=== PATIENT | male | born 1925 | race Caucasian/White ===

== ENCOUNTER → 2016-04-06 | Outpatient (CLI) | payer OTHER ==
[~2016-04-06] MED LIST: ACT300 PO; ASPI-435 PO; ASPI81TA21 PO; ATOR-26 PO; ATV5 PO; CALC0.2510 PO; CEPH500C2 PO; CHOL2000 PO; DMD20 PO; DRGTP12 TD; ESCI1TAB10 PO; FINA5TAB PO; FLUO5CRE TOP; GLIM2TAB2 PO; LACT10SO17 PO; LATA0.009 OPB; LATA0.5S OPB; LORA-741 PO; MECL1TAB42 PO; METO100T44 PO; METO200T31 PO; METO5TAB5 PO; MULT-188 PO; MULT-506 PO; NUTR-7 PO; ONDA4TAB4 PO; ONDA4TAB46 PO; POLY3350 PO; POLY335019 PO; POTA10TA PO; TIMO0.5S2 OPB; TIMO0.5S35 OPB; TORS20TA2 PO; TPRSR50 PO
[2016-04-06 11:07] LABS: HEMATOCRIT 30.2 % (42-52); MEAN CORPUSCULAR HEMOGLOBIN 32.1 pg (25-34); MEAN CORPUSCULAR HGB CONC 33.8 g/dl (32-36); MEAN PLATELET VOLUME 9.2 fL (7.4-10.4); PLATELET COUNT 136 K/uL (130-400); RED BLOOD COUNT 3.18 M/uL (4.7-6.1); WHITE BLOOD COUNT 5.93 K/uL (4.8-10.8)
[2016-04-06 11:26] LABS: URINE APPEARANCE CLEAR (CLEAR); URINE BILIRUBIN NEG (NEG); URINE COLOR YELLOW; URINE NITRITE NEG (NEG); URINE PH 7.5 (4.5-7.5); URINE SPECIFIC GRAVITY 1.012 (1.000-1.030); UROBILINOGEN NEG (NEG)
[2016-04-06 11:35] LABS: BLOOD UREA NITROGEN 58 mg/dl (7-18); BUN/CREATININE RATIO 26.4 (10-20); CALCIUM 9.6 mg/dl (8.5-10.1); CARBON DIOXIDE 32 mmol/L (21-32); CHLORIDE 97 mmol/L (98-107); GLUCOSE 93 mg/dl (70-99); POTASSIUM 3.5 mmol/L (3.5-5.1); SODIUM 137 mmol/L (136-145)
[2016-04-06 11:36] LABS: PHOSPHORUS 3.7 mg/dl (2.5-4.9)
[2016-04-06 11:43] LABS: MANUAL MICROSCOPIC REQUIRED? NO; REVIEW REQ? NO
== END | disposition home or self-care (01) ==
LOC: C.LAB1850 10:23
PROVIDERS: ATTEND Internal Medicine Nephrology
DX: N18.3 Chronic kidney disease, stage 3 (moderate) (principal)

== ENCOUNTER 2016-04-09 02:15 | Emergency (ER) | payer OTHER ==
[~2016-04-09] VITALS: Ht 167.6 cm; Wt 72.6 kg
[~2016-04-09 02:15] MED LIST changes: -ASPI-435 PO; -CEPH500C2 PO; -DRGTP12 TD; -LACT10SO17 PO; -LATA0.5S OPB; -LORA-741 PO; -METO100T44 PO; -METO200T31 PO; -METO5TAB5 PO; -MULT-506 PO; -ONDA4TAB46 PO; -POLY335019 PO; -POTA10TA PO; -TIMO0.5S35 OPB; -TORS20TA2 PO
[2016-04-09 02:22] VITALS: TEMP 36.3; Ht 167.6 cm; Wt 72.6 kg
[2016-04-09 03:11] LABS: BASO % 0.4 %; BASO ABS # 0.02 K/uL (0-0.2); COMPLETE YES; EOS % 3.3 %; HEMATOCRIT 29.2 % (42-52); IG% 0.2 %; LYMPH % 19.7 %; LYMPH ABS # 1.01 K/uL (1.2-3.4); MEAN CELL VOLUME 93.6 fL (80-100); MEAN CORPUSCULAR HEMOGLOBIN 32.1 pg (25-34); MEAN CORPUSCULAR HGB CONC 34.2 g/dl (32-36); MEAN PLATELET VOLUME 9.2 fL (7.4-10.4); MONO % 9.7 %; NEUT % 66.7 %; PLATELET COUNT 122 K/uL (130-400); RED BLOOD COUNT 3.12 M/uL (4.7-6.1); WHITE BLOOD COUNT 5.13 K/uL (4.8-10.8)
[2016-04-09 03:29] LABS: BUN/CREATININE RATIO 30.6 (10-20); CALCIUM 9.7 mg/dl (8.5-10.1); CREATININE 2.1 mg/dl (0.60-1.40); POTASSIUM 3.4 mmol/L (3.5-5.1)
--- NOTE | 2016-04-09 03:58 | EMERGENCY ROOM VISIT NOTE ---
History First contact with patient: 02:29 Chief Complaint: DENTAL PAIN Stated Complaint: MOUTH BLEEDING History of Present Illness The patient is a 89 year old male who presents to the Emergency Department by private vehicle for evaluation of bleeding from his upper RIGHT-sided gums. The patient reports that he noticed some bleeding from his gums on Tuesday. On Tuesday he was seen at his dentist office and had a procedure performed on his teeth. He is uncertain as to what procedure. He has been using pads in the mouth to help with his bleeding as well as teabags. He has had occasional breakthrough bleeding. He has had issues with bleeding in the past while on Coumadin. He is not on Coumadin to this point. He does take a baby aspirin daily. The patient rates his current discomfort as a 0/10. He denies any headaches, dizziness, lightheadedness, worsening shortness of breath, nausea, or vomiting. There has been no black or tarry stools. Review of Systems A complete 10-point Review of Systems was discussed with the patient, with pertinent positives and negatives listed in the History of Present Illness. All remaining Review of Systems questions can be considered negative unless otherwise specified. Past Medical/Surgical History Medical Problems: (1) Anemia (2) Atrial fibrillation (3) Bradycardia (4) Cardiac stent placement (5) Diabetes (6) Disorder of cardiac pacemaker system (7) Heart disease (8) Hernia repair (9) Implantation of cardiac pacemaker (10) Kidney disease (11) Meniere's disease (12) Syncope (13) UTI Family History Cancer Diabetes mellitus FH: heart disease Hypertension Social History Smoking Status: Never Smoker Smokeless Tobacco Use: No Alcohol Use: none Drug Use: none Marital Status: Housing Status: lives with significant other Occupation Status: retired Current/Historical Medications Scheduled Aspirin Enteric Coated (Ecotrin Or Generic), 81 MG PO QPM Atorvastatin (Lipitor), 80 MG PO DHS Calcitriol (Rocaltrol Cap), 0.25 MCG PO 3XWK Cholecalciferol (Vitamin D3), 1 CAP PO DAILY Escitalopram Oxalate (Lexapro), 10 MG PO DAILY Finasteride (Proscar), 5 MG PO DAILY Fluorouracil (Topical) (Efudex), 1 APPLN TOP BID Glimepiride (Glimepiride), 0.5 TAB PO DAILY Latanoprost 0.005% Oph (Xalatan 0.005% Oph), 1 DROP OPB HS Lorazepam (Ativan *), 0.5 MG PO BID Metoprolol Succinate (Metoprolol Succinate ER), 200 MG PO DAILY Multiple Vitamins W/ Minerals (Ocuvite), 1 TAB PO DAILY Nutritional Supplements (Boost), 1 CAN PO BID Polyethylene Glycol 3350 (Polyethylene Glycol 3350), 17 GM PO DAILY Timolol Gfs 0.5% Oph (Timoptic-Xe 0.5% Oph), 1 DROP OPB QAM Torsemide (Torsemide), 20-30 MG PO DAILY Ursodiol (Actigall *), 300 MG PO BID Scheduled PRN Meclizine Hcl (Meclizine Hcl), 1 TAB PO Q8 PRN for VERTIGO Ondansetron Tab (Zofran), 4 MG PO PRN PRN for Nausea Allergies Coded Allergies: Adhesives (Verified Allergy, Unknown, "RED RASH AND ITCHES", 02/05/16) Morphine (Verified Adverse Reaction, Mild, headaches, 02/05/16) Physical Exam Vital Signs Date Time Temp Pulse Resp B/P Pulse Ox O2 Delivery O2 Flow Rate FiO2 04/09/16 04:13 76 18 113/61 96 Room Air 04/09/16 02:22 36.3 84 20 134/81 98 Room Air Pain Rating (0-10): 0 Physical Exam VITAL SIGNS - Vital signs and nursing notes were reviewed. GENERAL - 89-year-old male appearing his stated age who is in no acute distress. Communicates well with provider and answers questions appropriately. HEAD - Normocephalic, Atraumatic. No Peterson's Sign or Raccoon's Eyes. No depressed skull fractures palpable. EYES - PERRL with EOMI bilaterally. EARS - No deformities of external structures noted on gross examination bilaterally. No pain elicited with palpation of the tragus bilaterally. External auditory canals without discharge or otorrhea. Tympanic membranes pearly argueta without retraction or bulging. No fluid or purulent material visualized behind the TM. Handle of malleus, umbo, cone of light, pars tensa/ flaccid all easily visualized. No erythema , edema, or tenderness to palpation noted over the mastoid process. NOSE - Midline and without cyanosis. No epistaxis or purulent drainage noted. Septum midline without deviation or septal hematoma noted. MOUTH/OROPHARYNX - Without perioral cyanosis. Buccal mucosa pink and moist and without leukoplakia. Tongue midline with equal elevation of palate bilaterally. No tonsillar hypertrophy, erythema, or exudates noted. Mild oozing of blood to the lateral surface of the gums of the third molar tooth. There is previous filling noted in the tooth. No significant bleeding. NECK - Neck with FROM. Supple to palpation. No lymphadenopathy noted. No nuchal rigidity. Medical Decision & Procedures Laboratory Results 04/09/16 02:52 Red Blood Count 3.12, Mean Corpuscular Volume 93.6, Mean Corpuscular Hemoglobin 32.1, Mean Corpuscular Hemoglobin Concent 34.2, Mean Platelet Volume 9.2, Neutrophils (%) (Auto) 66.7, Lymphocytes (%) (Auto) 19.7, Monocytes (%) (Auto) 9.7, Eosinophils (%) (Auto) 3.3, Basophils (%) (Auto) 0.4, Neutrophils # (Auto) 3.42, Lymphocytes # (Auto) 1.01, Monocytes # (Auto) 0.50, Eosinophils # (Auto) 0.17, Basophils # (Auto) 0.02 04/09/16 02:52 Test 04/09/16 02:52 White Blood Count 5.13 K/uL (4.8-10.8) Red Blood Count 3.12 M/uL (4.7-6.1) Hemoglobin 10.0 g/dL (14.0-18.0) Hematocrit 29.2 % (42-52) Mean Corpuscular Volume 93.6 fL (80-100) Mean Corpuscular Hemoglobin 32.1 pg (25-34) Mean Corpuscular Hemoglobin Concent 34.2 g/dl (32-36) Platelet Count 122 K/uL (130-400) Mean Platelet Volume 9.2 fL (7.4-10.4) Neutrophils (%) (Auto) 66.7 % Lymphocytes (%) (Auto) 19.7 % Monocytes (%) (Auto) 9.7 % Eosinophils (%) (Auto) 3.3 % Basophils (%) (Auto) 0.4 % Neutrophils # (Auto) 3.42 K/uL (1.4-6.5) Lymphocytes # (Auto) 1.01 K/uL (1.2-3.4) Monocytes # (Auto) 0.50 K/uL (0.11-0.59) Eosinophils # (Auto) 0.17 K/uL (0-0.5) Basophils # (Auto) 0.02 K/uL (0-0.2) RDW Standard Deviation 46.9 fL (36.4-46.3) RDW Coefficient of Variation 13.6 % (11.5-14.5) Immature Granulocyte % (Auto) 0.2 % Immature Granulocyte # (Auto) 0.01 K/uL (0.00-0.02) Prothrombin Time 11.0 SECONDS (9.0-12.0) Prothromb Time International Ratio 1.0 (0.9-1.1) Activated Partial Thromboplast Time 25.9 SECONDS (21.0-31.0) Partial Thromboplastin Ratio 1.0 Anion Gap 12.0 mmol/L (3-11) Est Creatinine Clear Calc Drug Dose 21.5 ml/min Estimated GFR () 31.4 Estimated GFR (Non- 27.1 BUN/Creatinine Ratio 30.6 (10-20) Calcium Level 9.7 mg/dl (8.5-10.1) Total Bilirubin 0.4 mg/dl (0.2-1) Aspartate Amino Transf (AST/SGOT) 10 U/L (15-37) Alanine Aminotransferase (ALT/SGPT) 19 U/L (12-78) Alkaline Phosphatase 56 U/L (45-117) Total Protein 7.2 gm/dl (6.4-8.2) Albumin 3.6 gm/dl (3.4-5.0) Globulin 3.6 gm/dl (2.5-4.0) Albumin/Globulin Ratio 1.0 (0.9-2) Procedure Verbal consent was obtained prior to performing the above-mentioned workup. Surgicel was used to circumferentially wrapped the affected tooth around the gums. Quick clot was utilized as well. Compression was applied to the area. Patient tolerated procedure well. No complications were met. ED Course Patient was seen and evaluated by myself. Labs were collected. The dental bleeding was addressed as described above. Patient had no return of bleeding while in the emergency department. Laboratory results demonstrate no acute leukocytosis, worrisome anemia, or bandemia. The patient's creatinine is elevated, however this appears to be at baseline. The patient was encouraged to follow up with his dentist tomorrow. He was educated on worrisome symptoms for return visit to the emergency department. Patient discharged home afebrile and in good condition. Medical Decision Given the patient's presentation and exam findings, I did elect to perform the above-mentioned workup. The patient presents today with bleeding from the gums. He had recent dental procedure. He is not on any anticoagulation medications. The bleeding was easily stopped using Surgicel and quick clot. The patient's labs are concerning at this point. The patient will follow-up with his dentist tomorrow. He will return for any changing or worsening symptoms. Patient discharged home in good condition. In the evaluation and treatment of this patient, the following differential diagnoses were considered: Periapical Abscess, Osteonecrosis of the Jaw, Dental Fracture, Dental Caries, Santos's Angina, Vincent's Angina, Facial Cellulitis. Impression Primary Impression: Bleeding gums Departure Information Dispostion Home / Self-Care Condition GOOD Referrals Carlos Nunez M.D. (PCP) Patient Instructions A Signature Page, My [facility] Additional Instructions You have been seen in the emergency department today for bleeding from the gums. Please follow-up with your dentist tomorrow as discussed. Return for any changing or worsening symptoms.
--- NOTE | 2016-04-09 04:02 | EMERGENCY ROOM VISIT NOTE ---
ED Visit Note First contact with patient: 02:29 I saw this patient in conjunction with Declan Hadley PA-C. I agree with his decision-making and treatment plan.
[2016-04-09 04:13] VITALS: BP 113/61; PULSE 76; O2SAT 96
[2016-07-24] MEDS ORDERED: METO1TAB70 PO (00:57)
[2016-09-21] MEDS ORDERED: DRGTP12 TD (09:07)
== END 2016-04-09 04:15 | disposition home or self-care (01) ==
LOC: C.EDB 02:17
DX: K06.8 Other specified disorders of gingiva and edentulous alveolar ridge (principal); I48.91 Unspecified atrial fibrillation; E11.9 Type 2 diabetes mellitus without complications; Z95.0 Presence of cardiac pacemaker; I51.9 Heart disease, unspecified; N28.9 Disorder of kidney and ureter, unspecified; H81.09 Meniere's disease, unspecified ear; Z80.9 Family history of malignant neoplasm, unspecified; Z83.3 Family history of diabetes mellitus; Z82.49 Family history of ischemic heart disease and other diseases of the circulatory system; Z79.82 Long term (current) use of aspirin; Z79.899 Other long term (current) drug therapy

== ENCOUNTER → 2016-04-23 | Outpatient (CLI) | payer OTHER ==
[~2016-04-23] MED LIST changes: +ASPI-435 PO; +CEPH500C2 PO; +DRGTP12 TD; +LACT10SO17 PO; +LATA0.5S OPB; +LORA-741 PO; +METO1TAB69 PO; +METO1TAB70 PO; +METO5TAB5 PO; +MULT-506 PO; +ONDA4TAB46 PO; +POLY335019 PO; +POTA10TA PO; +TIMO0.5S35 OPB; +TORS20TA2 PO
[2016-04-23 11:41] LABS: BLOOD UREA NITROGEN 49 mg/dl (7-18); BUN/CREATININE RATIO 24.5 (10-20); CALCIUM 9.5 mg/dl (8.5-10.1); CARBON DIOXIDE 30 mmol/L (21-32); CHLORIDE 102 mmol/L (98-107); GLUCOSE 84 mg/dl (70-99); PHOSPHORUS 2.8 mg/dl (2.5-4.9); POTASSIUM 3.6 mmol/L (3.5-5.1); SODIUM 140 mmol/L (136-145)
== END | disposition home or self-care (01) ==
LOC: C.LAB1850 09:54
PROVIDERS: ATTEND Internal Medicine Nephrology
DX: N18.4 Chronic kidney disease, stage 4 (severe) (principal)

== ENCOUNTER 2016-05-20 15:01 | Inpatient (IN) | payer OTHER ==
[~2016-05-20] VITALS: Ht 167.6 cm; Wt 69.7 kg
[~2016-05-20 15:01] MED LIST changes: -ASPI-435 PO; -CEPH500C2 PO; -DRGTP12 TD; -LACT10SO17 PO; -LATA0.5S OPB; -LORA-741 PO; -METO1TAB69 PO; -METO1TAB70 PO; -METO5TAB5 PO; -MULT-506 PO; -ONDA4TAB46 PO; -POLY335019 PO; -POTA10TA PO; -TIMO0.5S35 OPB; -TORS20TA2 PO
[2016-05-20 15:53] LABS: BASO % 0.3 %; BASO ABS # 0.02 K/uL (0-0.2); COMPLETE YES; EOS % 2.4 %; HEMATOCRIT 28.3 % (42-52); IG% 0.3 %; LYMPH % 12.3 %; LYMPH ABS # 0.77 K/uL (1.2-3.4); MEAN CELL VOLUME 94.3 fL (80-100); MEAN CORPUSCULAR HGB CONC 33.9 g/dl (32-36); MEAN PLATELET VOLUME 9.3 fL (7.4-10.4); NEUT % 72.7 %; PLATELET COUNT 130 K/uL (130-400); WHITE BLOOD COUNT 6.24 K/uL (4.8-10.8)
[2016-05-20] MEDS ORDERED: METO1TAB69 PO (15:59)
[2016-05-20 16:02] LABS: PARTIAL THROMBOPLASTIN RATIO 0.8; PROTHROMBIN TIME (PATIENT) 11.2 SECONDS (9.0-12.0)
[2016-05-20 16:14] LABS: BLOOD UREA NITROGEN 56 mg/dl (7-18); BUN/CREATININE RATIO 25.4 (10-20); CALCIUM 9.7 mg/dl (8.5-10.1); CARBON DIOXIDE 30 mmol/L (21-32); CHLORIDE 100 mmol/L (98-107); GLUCOSE 141 mg/dl (70-99); MAGNESIUM 2.5 mg/dl (1.8-2.4); POTASSIUM 3.6 mmol/L (3.5-5.1); SODIUM 139 mmol/L (136-145)
[2016-05-20 16:24] LABS: PHOSPHORUS 3.3 mg/dl (2.5-4.9)
--- NOTE | 2016-05-20 16:39 | DIAGNOSTIC IMAGING REPORT ---
CHEST 2 VIEWS ROUTINE CLINICAL HISTORY: Exertional dyspnea, Stage IV kidney disease, 11 lb weight gain COMPARISON STUDY: Chest radiograph February 05, 2016. FINDINGS: There are few healed rib fractures. A nodular density projecting over the right lower lung likely reflects a nipple shadow. No pneumothorax or pleural effusion is present. A right subclavian pacemaker is in place. A disconnected lead is unchanged. There is no radiographic evidence of pulmonary edema. There is pulmonary vascular congestion. IMPRESSION: 1. Stable cardiomegaly. 2. Pulmonary vascular congestion. No overt pulmonary edema. Electronically signed by: Agustin Khan M.D. 05/20/2016 4:37 PM Dictated Date/Time: 05/20/2016 4:32 PM
--- NOTE | 2016-05-20 17:04 | EMERGENCY ROOM VISIT NOTE ---
History Report prepared by Francine: Claudio Palomo Under the Supervision of: Dr. Sariah Bonilla M.D. First contact with patient: 15:10 Chief Complaint: SHORTNESS OF BREATH Stated Complaint: WEIGHT GAIN KIDNEY DISEASE 4(s) History of Present Illness The patient is an 89 year old male who presents to the Emergency Room with complaints of persistent weight gain of around 11 pounds over the past two weeks. Associated symptoms include shortness of breath, chest "burning" with exertion, increased lethargy, and abdominal pain. The patient suffers from stage 4 kidney disease. He was told to call his physician's office if he experiences abnormal weight gain. When he called today, it was recommended that he come into the ED. The patient takes 30 mg Torsemide 2 x per day. Source of History: patient Onset: past two weeks Position: other (Global ) Timing: other (Persistent ) Modifying Factors (Relieving): other (None ) Associated Symptoms: + SOB, + abdominal pain, + chest pain (Burning with exertion ) Review of Systems See HPI for pertinent positives & negatives. A total of 10 systems reviewed and were otherwise negative. Past Medical & Surgical Medical Problems: (1) Anemia (2) Atrial fibrillation (3) Bradycardia (4) Cardiac stent placement (5) Diabetes (6) Disorder of cardiac pacemaker system (7) Heart disease (8) Hernia repair (9) Implantation of cardiac pacemaker (10) Kidney disease (11) Meniere's disease (12) Syncope (13) UTI Family History Cancer Diabetes mellitus FH: heart disease Hypertension Social History Smoking Status: Former Smoker Alcohol Use: none Drug Use: none Marital Status: Housing Status: lives with significant other Occupation Status: retired Current/Historical Medications Scheduled Aspirin Enteric Coated (Ecotrin Or Generic), 81 MG PO QPM Atorvastatin (Lipitor), 80 MG PO DHS Calcitriol (Rocaltrol Cap), 0.25 MCG PO 3XWK Cholecalciferol (Vitamin D3), 1 CAP PO DAILY Escitalopram Oxalate (Lexapro), 10 MG PO DAILY Finasteride (Proscar), 5 MG PO Q2D Fluorouracil (Topical) (Efudex), 1 APPLN TOP BID Glimepiride (Glimepiride), 0.5 TAB PO DAILY Latanoprost 0.005% Oph (Xalatan 0.005% Oph), 1 DROP OPB HS Lorazepam (Ativan *), 0.5 MG PO BID Metoprolol Succ (Toprol Xl) (Toprol-Xl ), 100 MG PO QPM Multiple Vitamins W/ Minerals (Ocuvite), 1 TAB PO DAILY Nutritional Supplements (Boost), 1 CAN PO BID Timolol Gfs 0.5% Oph (Timoptic-Xe 0.5% Oph), 1 DROP OPB QAM Torsemide (Torsemide), 20-30 MG PO DAILY Ursodiol (Actigall *), 300 MG PO BID Scheduled PRN Meclizine Hcl (Meclizine Hcl), 1 TAB PO Q8 PRN for VERTIGO Ondansetron Tab (Zofran), 4 MG PO PRN PRN for Nausea Allergies Coded Allergies: Adhesives (Verified Allergy, Unknown, "RED RASH AND ITCHES", 05/20/16) Morphine (Verified Adverse Reaction, Mild, headaches, 05/20/16) Physical Exam Vital Signs Date Time Temp Pulse Resp B/P Pulse Ox O2 Delivery O2 Flow Rate FiO2 05/20/16 15:34 70 05/20/16 15:21 99 Room Air 05/20/16 15:07 36.5 92 20 122/72 97 Room Air Physical Exam CONSTITUTIONAL: Mild distress, appears unwell. HEENT: No icterus, moist mucous membranes NECK: No meningismus, trachea is midline. CARDIOVASCULAR: Murmurs noted. Regular rate, normal perfusion RESPIRATORY: Unlabored breathing. Clear to auscultation. GASTROINTESTINAL: Non-tender GENITOURINARY: No flank tenderness MUSCULOSKELETAL: Full range of motion NEUROLOGIC: No acute gross focal deficits. PSYCHIATRIC: Normal affect SKIN: Multiple bruises noted. Medical Decision & Procedures ER Provider Diagnostic Interpretation: X-ray results as stated below per interpretation by me and the radiologist. CHEST 2 VIEWS ROUTINE CLINICAL HISTORY: Exertional dyspnea, Stage IV kidney disease, 11 lb weight gain COMPARISON STUDY: Chest radiograph February 05, 2016. FINDINGS: There are few healed rib fractures. A nodular density projecting over the right lower lung likely reflects a nipple shadow. No pneumothorax or pleural effusion is present. A right subclavian pacemaker is in place. A disconnected lead is unchanged. There is no radiographic evidence of pulmonary edema. There is pulmonary vascular congestion. IMPRESSION: 1. Stable cardiomegaly. 2. Pulmonary vascular congestion. No overt pulmonary edema. Electronically signed by: Agustin Khan M.D. 05/20/2016 4:37 PM Dictated Date/Time: 05/20/2016 4:32 PM Laboratory Results 05/20/16 15:35 Red Blood Count 3.00, Mean Corpuscular Volume 94.3, Mean Corpuscular Hemoglobin 32.0, Mean Corpuscular Hemoglobin Concent 33.9, Mean Platelet Volume 9.3, Neutrophils (%) (Auto) 72.7, Lymphocytes (%) (Auto) 12.3, Monocytes (%) (Auto) 12.0, Eosinophils (%) (Auto) 2.4, Basophils (%) (Auto) 0.3, Neutrophils # (Auto ) 4.53, Lymphocytes # (Auto) 0.77, Monocytes # (Auto) 0.75, Eosinophils # (Auto ) 0.15, Basophils # (Auto) 0.02 05/20/16 15:35 Test 05/20/16 15:35 White Blood Count 6.24 K/uL (4.8-10.8) Red Blood Count 3.00 M/uL (4.7-6.1) Hemoglobin 9.6 g/dL (14.0-18.0) Hematocrit 28.3 % (42-52) Mean Corpuscular Volume 94.3 fL (80-100) Mean Corpuscular Hemoglobin 32.0 pg (25-34) Mean Corpuscular Hemoglobin Concent 33.9 g/dl (32-36) Platelet Count 130 K/uL (130-400) Mean Platelet Volume 9.3 fL (7.4-10.4) Neutrophils (%) (Auto) 72.7 % Lymphocytes (%) (Auto) 12.3 % Monocytes (%) (Auto) 12.0 % Eosinophils (%) (Auto) 2.4 % Basophils (%) (Auto) 0.3 % Neutrophils # (Auto) 4.53 K/uL (1.4-6.5) Lymphocytes # (Auto) 0.77 K/uL (1.2-3.4) Monocytes # (Auto) 0.75 K/uL (0.11-0.59) Eosinophils # (Auto) 0.15 K/uL (0-0.5) Basophils # (Auto) 0.02 K/uL (0-0.2) RDW Standard Deviation 45.8 fL (36.4-46.3) RDW Coefficient of Variation 13.3 % (11.5-14.5) Immature Granulocyte % (Auto) 0.3 % Immature Granulocyte # (Auto) 0.02 K/uL (0.00-0.02) Prothrombin Time 11.2 SECONDS (9.0-12.0) Prothromb Time International Ratio 1.0 (0.9-1.1) Activated Partial Thromboplast Time 21.5 SECONDS (21.0-31.0) Partial Thromboplastin Ratio 0.8 Anion Gap 9.0 mmol/L (3-11) Est Creatinine Clear Calc Drug Dose 22.2 ml/min Estimated GFR () 29.7 Estimated GFR (Non- 25.6 BUN/Creatinine Ratio 25.4 (10-20) Calcium Level 9.7 mg/dl (8.5-10.1) Phosphorus Level 3.3 mg/dl (2.5-4.9) Magnesium Level 2.5 mg/dl (1.8-2.4) Troponin I < 0.015 ng/ml (0-0.045) Thyroid Stimulating Hormone (TSH) 1.750 uIu/ml (0.300-4.500) Labs reviewed by ED physician. ECG Indication: SOB/dyspnea Rate (beats per minute): 80 Findings: paced rhythm ED Course 1517: Past medical records reviewed. The patient was evaluated in room B9. A complete history and physical examination was performed. 1610: Discussed the patient's case with Dr. Millan ([facility] The patient will be evaluated for further management. Medical Decision Differential diagnosis include but are not limited to: kidney failure, CHF. 89-year-old presents to the emergency department for evaluation of 11 pound weight loss over 1 week. History of stage IV kidney disease followed by Dr. Castro. PCP Enrique. Long-standing history of valvular dysfunction without recent cardiology consultations. Review of systems positive for exertional chest pain. He was clearly instructed that should he have a more than 10 pound weight gain he should call the rib builder office which he did today. He was subsequently advised to come to the emergency room for evaluation and admission. He has no active chest pain or dyspnea on my exam at rest. Case discussed with Dr. Millan for admission. Consults Time Called: 1610 Consulting Physician: Dr. Millan ([facility]) Returned Call: 1610 Discussed the patient's case. The patient will be evaluated for further management. Impression Primary Impression: Exertional chest pain Additional Impression: Pulmonary edema Scribe Attestation The scribe's documentation has been prepared under my direction and personally reviewed by me in its entirety. I confirm that the note above accurately reflects all work, treatment, procedures, and medical decision making performed by me. Departure Information Dispostion Being Evaluated By Hospitalist Referrals Carlos Nunez M.D. (PCP) Patient Instructions My [facility] Problem Qualifiers
--- NOTE | 2016-05-20 17:30 | Medical Student: [facility] ---
Med Student History & Physical Date & Time of Service: May 20, 2016 at 16:59 Chief Complaint: WEIGHT GAIN KIDNEY DISEASE 4(s) Primary Care Physician: Carlos Nunez M.D. History of Present Illness Source: patient 89y/o female with a history of stage IV kidney disease, CHF, and pacemaker placement (most recent four years ago) presents with a weight gain of 11pounds over the past two weeks. The patient states that he has been feeling more tired recently and has been having trouble getting moving in the morning. He has been having shortness of breath with exertion and movement and gets worsening shortness of breath when he lies down to sleep at night. He also gets a burning chest pain upon exertion and lying down. Because of this SOB and pain with lying down, the patient has been sleeping in his recliner chair, and has been getting very little sleep. The patient also states that his abdomen has been distended and his legs have had had increased swelling as well. He has had decreased urination. The patient takes Torsemide 20mg daily and has also been prescribed Metolazone. However, he states that he has only used the Metolazone a few times because it does not work. The patient follows with Dr. Lai, Dr. Min, and his PCP is Dr. Amado. Past Medical/Surgical History Medical Problems: (1) Stage 4 kidney disease 2. Atrial fibrillation 3. CHF 4. DM 5. bradycardia 6. Anemia 7. High cholesterol 8. Squamos Cell Skin Cancer 9. UTI 10. Gallbladder Pain 11. Meniere's Disease 12. Syncope 13. BPH 14. Glaucoma Surgery Disease 1. Stent placement 2. Pacemaker placement 3. hernia repair Family History Cancer, Diabetes Mellitus, Heart Disease, HTN Social History Smoking Status: Former Smoker Alcohol Use: none Drug Use: none Marital Status: Housing status: lives with family Occupational Status: retired Immunizations History of Influenza Vaccine: Yes Influenza Vaccine Date: Jan 25, 2011 History of Tetanus Vaccine?: Unknown Tetanus Immunization Date: Jan 16, 2010 History of Pneumococcal: Yes Pneumococcal Date: Apr 04, 2003 History of Hepatitis B Vaccine: Unknown Allergies Coded Allergies: Adhesives (Verified Allergy, Unknown, "RED RASH AND ITCHES", 05/20/16) Morphine (Verified Adverse Reaction, Mild, headaches, 05/20/16) Medications Aspirin Enteric Coated (Ecotrin Or Generic), 81 MG PO QPM Atorvastatin (Lipitor), 80 MG PO DHS Calcitriol (Rocaltrol Cap), 0.25 MCG PO 3XWK Cholecalciferol (Vitamin D3), 1 CAP PO DAILY Escitalopram Oxalate (Lexapro), 10 MG PO DAILY Finasteride (Proscar), 5 MG PO Q2D Fluorouracil (Topical) (Efudex), 1 APPLN TOP BID Glimepiride (Glimepiride), 0.5 TAB PO DAILY Latanoprost 0.005% Oph (Xalatan 0.005% Oph), 1 DROP OPB HS Lorazepam (Ativan *), 0.5 MG PO BID Meclizine Hcl (Meclizine Hcl), 1 TAB PO Q8 PRN for VERTIGO Metoprolol Succ (Toprol Xl) (Toprol-Xl ), 100 MG PO QPM Multiple Vitamins W/ Minerals (Ocuvite), 1 TAB PO DAILY Nutritional Supplements (Boost), 1 CAN PO BID Ondansetron Tab (Zofran), 4 MG PO PRN PRN for Nausea Timolol Gfs 0.5% Oph (Timoptic-Xe 0.5% Oph), 1 DROP OPB QAM Torsemide (Torsemide), 20-30 MG PO DAILY Ursodiol (Actigall *), 300 MG PO BID Review of Systems Constitutional: + weakness, No chills, No fever, No sweats Eyes: No discharge, No redness, No worsening of vision ENT: No nasal symptoms, No sore throat, No trouble swallowing (regurgitates pills) Respiratory: + dyspnea on exertion, + shortness of breath, No cough, No sputum , No wheezing Cardiovascular: + chest pain, + edema, + orthopnea, No palpitations Abdomen: + constipation, + pain, No GI bleeding, No diarrhea, No nausea, No vomiting Musculoskeletal: No calf pain, No muscle pain Neurologic: No memory loss, No numbness/tingling, No paralysis, No weakness Psychiatric: No anxiety, No depression symptoms, No substance abuse Integumentary: No itch, No new/changing skin lesions, No rash Physical Exam Vital Signs (24 Hours) Date Time Temp Pulse Resp B/P Pulse Ox O2 Delivery O2 Flow Rate FiO2 05/20/16 15:34 70 05/20/16 15:21 99 Room Air 05/20/16 15:07 36.5 92 20 122/72 97 Room Air General Appearance: no apparent distress, + pertinent finding (tired and frail appearing) Head: normocephalic, atraumatic Eyes: normal inspection, EOMI ENT: normal ENT inspection, hearing grossly normal, pharynx normal Respiratory/Chest: chest non-tender, no respiratory distress, + crackles ( right base) Cardiovascular: regular rate, rhythm, no gallop, + systolic murmur (3/6) Abdomen/GI: normal bowel sounds, non tender, no pulsatile mass, + distended Back: normal inspection Extremities/Musculoskelatal: + pedal edema (1+ pedal and lower leg edema on the right and 2+ pedal and lower leg edema on the left) Neurologic/Psych: alert, normal mood/affect, oriented x 3 Skin: warm/dry, no rash, + pertinent finding (bruising on the forearms bilateral) Diagnostics Laboratory Results Results Past 24 Hours Test 05/20/16 15:35 Range/Units White Blood Count 6.24 4.8-10.8 K/uL Red Blood Count 3.00 4.7-6.1 M/uL Hemoglobin 9.6 14.0-18.0 g/dL Hematocrit 28.3 42-52 % Mean Corpuscular Volume 94.3 80-100 fL Mean Corpuscular Hemoglobin 32.0 25-34 pg Mean Corpuscular Hemoglobin Concent 33.9 32-36 g/dl Platelet Count 130 130-400 K/uL Mean Platelet Volume 9.3 7.4-10.4 fL Neutrophils (%) (Auto) 72.7 % Lymphocytes (%) (Auto) 12.3 % Monocytes (%) (Auto) 12.0 % Eosinophils (%) (Auto) 2.4 % Basophils (%) (Auto) 0.3 % Neutrophils # (Auto) 4.53 1.4-6.5 K/uL Lymphocytes # (Auto) 0.77 1.2-3.4 K/uL Monocytes # (Auto) 0.75 0.11-0.59 K/uL Eosinophils # (Auto) 0.15 0-0.5 K/uL Basophils # (Auto) 0.02 0-0.2 K/uL RDW Standard Deviation 45.8 36.4-46.3 fL RDW Coefficient of Variation 13.3 11.5-14.5 % Immature Granulocyte % (Auto) 0.3 % Immature Granulocyte # (Auto) 0.02 0.00-0.02 K/uL Prothrombin Time 11.2 9.0-12.0 SECONDS Prothromb Time International Ratio 1.0 0.9-1.1 Activated Partial Thromboplast Time 21.5 21.0-31.0 SECONDS Partial Thromboplastin Ratio 0.8 Sodium Level 139 136-145 mmol/L Potassium Level 3.6 3.5-5.1 mmol/L Chloride Level 100 98-107 mmol/L Carbon Dioxide Level 30 21-32 mmol/L Anion Gap 9.0 3-11 mmol/L Blood Urea Nitrogen 56 7-18 mg/dl Creatinine 2.20 0.60-1.40 mg/dl Est Creatinine Clear Calc Drug Dose 22.2 ml/min Estimated GFR () 29.7 Estimated GFR (Non- 25.6 BUN/Creatinine Ratio 25.4 10-20 Random Glucose 141 70-99 mg/dl Calcium Level 9.7 8.5-10.1 mg/dl Phosphorus Level 3.3 2.5-4.9 mg/dl Magnesium Level 2.5 1.8-2.4 mg/dl Troponin I < 0.015 0-0.045 ng/ml Thyroid Stimulating Hormone (TSH) 1.750 0.300-4.500 uIu/ml Diagnostic Radiology CXR: IMPRESSION: 1. Stable cardiomegaly. 2. Pulmonary vascular congestion. No overt pulmonary edema. EKG Ventricular pacer rhythm, Ventricular rate has increased by 9BPM compared to previous ecg Impression Assessment and Plan 89y/o male with a history of CHF and CKD stage IV with two weeks of 11 pound weight gain, shortness of breath with exertion, orthopnea, and chest pain with exertion. Differential includes CHF exacerbation, GA, complications from CKD, electrolyte abnormality, pulmonary edema, PE, and hypothyroidism. FLuid buildup likely due to CHF exacerbation given the patient's symptoms of orthopnea and chest pain. CHF exacerbation/weight gain- Will administer Furosemide 40mg IV daily. Monitor I&O and weight. Cardiology will be consulted. Echo ordered. BNP has been ordered. Initial troponin negative, continue to follow serial cardiac enzymes. Repeat ecg. Morphine as needed for pain. NTG for chest pain. Heart Disease/Atrial Fibrillation- Administer Metoprolol Succinate 100 Mg PO QPM and ASA 81mg PO QPM CKD stage IV- Creatinine at 2.20, BUN 56. Continue to monitor kidney function and other labs. LFTs ordered. Administer Vitamin D3 1 Cap PO daily and Calcitriol 0.25mcg PO 3xweek. Constipation- Administer Miralax for constipation Diabetes Mellitus- Administer Glimepiride 2Mg Tab, 0.5 tab PO daily. Gallbladder sludge/pain- Administer Ursodiol 300mg PO BID and Zofran and Meclizine as needed for nausea. Squamos Cell Skin Cancer- Continue to administer Fluorouracil Topical BID. BPH- Administer Finasteride 5mg PO Q2D. Hyperlipidemia- Administer Atorvastatin Calcium 80mg PO DHS. Depression/Anxiety- Administer Escitalopram 10mg PO daily and Lorazepam 0.5Mg PO BID. Glaucoma- Administer Latanoprost Soln 1 drop OPB HS and Timolol 1 drop OPB QAM.
[2016-05-20 17:57] LABS: URINE APPEARANCE CLEAR (CLEAR); URINE BILIRUBIN NEG (NEG); URINE COLOR YELLOW; URINE NITRITE NEG (NEG); URINE PH 7.5 (4.5-7.5); URINE SPECIFIC GRAVITY 1.007 (1.000-1.030); UROBILINOGEN NEG (NEG)
[2016-05-20 18:07] LABS: MANUAL MICROSCOPIC REQUIRED? NO; REVIEW REQ? NO
[2016-05-20] MEDS ORDERED: ONDANSETRON INJ 2 MG/ML 2 ML VIAL IV PRN (18:45)
[2016-05-20] MEDS ORDERED: MECLIZINE HCL 25 MG TAB PO PRN (18:45)
[2016-05-20] MEDS ORDERED: NITROGLYCERIN 0.4 MG SL PER TAB CHARGE SL PRN (18:45)
[2016-05-20] MEDS ORDERED: ZOLPIDEM TARTRATE 5 MG TAB PO PRN (18:45)
[2016-05-20] MEDS ORDERED: GLUCOSE 40% GEL 15 GM TUBE PO PRN (18:45)
[2016-05-20] MEDS ORDERED: GLUCAGON FOR INJ 1 MG VIAL SQ PRN (18:45)
[2016-05-20] MEDS ORDERED: GLUCOSE 10 TABS/TUBE PO PRN (18:45)
[2016-05-20] MEDS ORDERED: DEXTROSE 50% 50 ML SYR IV PRN (18:45)
[2016-05-20] MEDS ORDERED: ACETAMINOPHEN 325 MG TAB PO PRN (18:45)
[2016-05-20] MEDS ORDERED: FUROSEMIDE 40 MG/4 ML VIAL IV SCH (19:15)
[2016-05-20 19:50] VITALS: BMI 27.3
[2016-05-20 20:17] LABS: CKMB/CK RATIO 4.6 (0-3.0)
[2016-05-20 21:30] VITALS: BP 121/65; PULSE 87; TEMP 36.7; O2SAT 97
[2016-05-20] MEDS: BOOST VANILLA PO SCH ×2 (22:12)
[2016-05-20] MEDS: LORAZEPAM 0.5 MG TAB PO SCH (22:12)
[2016-05-20] MEDS: URSODIOL 300 MG CAP PO SCH (22:13)
[2016-05-20] MEDS: ATORVASTATIN 40 MG TAB PO SCH (22:14)
[2016-05-20] MEDS: ASPIRIN 81 MG ECTAB PO SCH (22:14)
[2016-05-20] MEDS: METOPROLOL SUCC 50MG EXT REL TAB PO SCH (22:15)
[2016-05-20] MEDS: LATANOPROST 0.005% OP SOLN 2.5 ML BTL OPB SCH (22:16)
[2016-05-20] MEDS: INSULIN ASPART 100 UNITS/ML 3 ML PEN SC SCH (22:17)
[2016-05-21] VITALS (8 sets, daily range): BP systolic 112–135; BP diastolic 53–75; PULSE 69–78; TEMP 36.4–36.9; O2SAT 91–97; Ht 167.6 cm; Wt 69.7 kg
--- NOTE | 2016-05-21 03:11 | History and Physical ---
History & Physical Date & Time of Service: May 21, 2016 at 02:59 Chief Complaint: Chf Exacerbation Primary Care Physician: Carlos Nunez M.D. History of Present Illness Source: patient, spouse The patient is an 89-year-old male who presents emergency department with a weight gain of 11 pounds with the past 2 weeks. He's also had shortness of breath, chest brain with exertion, generalized fatigue and abdominal bloating. His physician's office referred him to the ED due to these symptoms. He has not had any change in oral intake, in particular, keeps the salt intake low in his diet. Past Medical/Surgical History Medical Problems: (1) Atrial fibrillation Status: Chronic (2) Bradycardia Status: Chronic (3) Cardiac stent placement Status: Resolved (4) Diabetes Status: Chronic (5) Heart disease Status: Chronic (6) Hernia repair Status: Resolved (7) Implantation of cardiac pacemaker Status: Resolved (8) Kidney disease Status: Chronic (9) Meniere's disease Status: Chronic (10) UTI Status: Chronic Family History Cancer Diabetes mellitus FH: heart disease Hypertension Social History Smoking Status: Former Smoker Alcohol Use: none Drug Use: none Marital Status: Housing status: lives with family Occupational Status: retired Immunizations History of Influenza Vaccine: Yes Influenza Vaccine Date: Jan 25, 2011 History of Tetanus Vaccine?: Unknown Tetanus Immunization Date: Jan 16, 2010 History of Pneumococcal: Yes Pneumococcal Date: Apr 04, 2003 History of Hepatitis B Vaccine: Unknown Multi-Drug Resistant Organisms History of MDRO: No Allergies Coded Allergies: Adhesives (Verified Allergy, Unknown, "RED RASH AND ITCHES", 05/20/16) Morphine (Verified Adverse Reaction, Mild, headaches, 05/20/16) Home Medications Scheduled Aspirin Enteric Coated (Ecotrin Or Generic), 81 MG PO QPM Atorvastatin (Lipitor), 80 MG PO DHS Calcitriol (Rocaltrol Cap), 0.25 MCG PO 3XWK Cholecalciferol (Vitamin D3), 1 CAP PO DAILY Escitalopram Oxalate (Lexapro), 10 MG PO DAILY Finasteride (Proscar), 5 MG PO Q2D Fluorouracil (Topical) (Efudex), 1 APPLN TOP BID Glimepiride (Glimepiride), 0.5 TAB PO DAILY Latanoprost 0.005% Oph (Xalatan 0.005% Oph), 1 DROP OPB HS Lorazepam (Ativan *), 0.5 MG PO BID Metoprolol Succ (Toprol Xl) (Toprol-Xl ), 100 MG PO QPM Multiple Vitamins W/ Minerals (Ocuvite), 1 TAB PO DAILY Nutritional Supplements (Boost), 1 CAN PO BID Timolol Gfs 0.5% Oph (Timoptic-Xe 0.5% Oph), 1 DROP OPB QAM Torsemide (Torsemide), 20-30 MG PO DAILY Ursodiol (Actigall *), 300 MG PO BID Scheduled PRN Meclizine Hcl (Meclizine Hcl), 1 TAB PO Q8 PRN for VERTIGO Ondansetron Tab (Zofran), 4 MG PO PRN PRN for Nausea Review of Systems The patient denies cough, vision change, hearing change, sore throat, fevers, chills, sweats, weight change, fatigue, nausea, vomiting, pelvic pain, blood in urine or stool, dysuria, urinary frequency or urgency, lightheadedness, dizziness, headache, memory loss, rash, abnormal bruising or bleeding, imbalance , focal weakness, numbness or tingling in arms or legs, arthralgias or myalgias , back or neck pain, night sweats, or allergy symptoms. The review of systems is otherwise negative other than for that already noted above, and at least 10 systems have been reviewed. Physical Exam Vital Signs Date Time Temp Pulse Resp B/P Pulse Ox O2 Delivery O2 Flow Rate FiO2 05/21/16 00:04 36.7 71 16 112/53 96 Room Air 05/21/16 00:00 Room Air 05/20/16 21:30 36.7 87 18 121/65 97 Room Air 05/20/16 20:27 67 18 120/63 94 Room Air 05/20/16 19:50 Room Air 05/20/16 19:14 66 18 130/66 93 Room Air 05/20/16 17:44 05/20/16 17:42 119/63 05/20/16 16:11 63 05/20/16 16:06 62 05/20/16 15:46 66 94 05/20/16 15:41 65 97 05/20/16 15:36 67 13 97 05/20/16 15:34 70 05/20/16 15:31 66 16 98 05/20/16 15:26 65 28 96 05/20/16 15:21 78 12 99 05/20/16 15:21 99 Room Air 05/20/16 15:07 36.5 92 20 122/72 97 Room Air The patient is awake, alert and oriented 3, normocephalic and atraumatic, lying in bed and in no acute distress. HEENT--PERRL, EOMI, mucous membranes and oropharynx dry. Neck--supple, no JVD or bruits, thyroid normal, trachea midline, no adenopathy. Heart--normal S1 and S2, no extra beats, no murmurs, rubs or gallops. Lungs--clear bilaterally with good air movement, no respiratory distress, no accessory muscle use. Abdomen--normal bowel sounds and soft, mildly tympanitic, nontender, no hernias or masses, no organomegaly. Extremities--no cyanosis, clubbing. There is bilaterally 1+ pitting Edema. There are good distal pulses b/l. Dermatologic--normal skin turgor, normal color, warm and dry, no abnormal lymph nodes, no rash. Neurologic--cranial nerves II through XII grossly intact, motor and sensory examination normal. Rheumatologic--normal range of motion, nontender, muscles and joints for age Psychiatric--normal affect. Diagnostics Laboratory Results Results Past 24 Hours Test 05/20/16 15:35 05/20/16 17:42 05/20/16 19:35 05/20/16 21:54 Range/Units White Blood Count 6.24 4.8-10.8 K/uL Red Blood Count 3.00 4.7-6.1 M/uL Hemoglobin 9.6 14.0-18.0 g/dL Hematocrit 28.3 42-52 % Mean Corpuscular Volume 94.3 80-100 fL Mean Corpuscular Hemoglobin 32.0 25-34 pg Mean Corpuscular Hemoglobin Concent 33.9 32-36 g/dl Platelet Count 130 130-400 K/uL Mean Platelet Volume 9.3 7.4-10.4 fL Neutrophils (%) (Auto) 72.7 % Lymphocytes (%) (Auto) 12.3 % Monocytes (%) (Auto) 12.0 % Eosinophils (%) (Auto) 2.4 % Basophils (%) (Auto) 0.3 % Neutrophils # (Auto) 4.53 1.4-6.5 K/uL Lymphocytes # (Auto) 0.77 1.2-3.4 K/uL Monocytes # (Auto) 0.75 0.11-0.59 K/uL Eosinophils # (Auto) 0.15 0-0.5 K/uL Basophils # (Auto) 0.02 0-0.2 K/uL RDW Standard Deviation 45.8 36.4-46.3 fL RDW Coefficient of Variation 13.3 11.5-14.5 % Immature Granulocyte % (Auto) 0.3 % Immature Granulocyte # (Auto) 0.02 0.00-0.02 K/uL Prothrombin Time 11.2 9.0-12.0 SECONDS Prothromb Time International Ratio 1.0 0.9-1.1 Activated Partial Thromboplast Time 21.5 21.0-31.0 SECONDS Partial Thromboplastin Ratio 0.8 Sodium Level 139 136-145 mmol/L Potassium Level 3.6 3.5-5.1 mmol/L Chloride Level 100 98-107 mmol/L Carbon Dioxide Level 30 21-32 mmol/L Anion Gap 9.0 3-11 mmol/L Blood Urea Nitrogen 56 7-18 mg/dl Creatinine 2.20 0.60-1.40 mg/dl Est Creatinine Clear Calc Drug Dose 22.2 ml/min Estimated GFR () 29.7 Estimated GFR (Non- 25.6 BUN/Creatinine Ratio 25.4 10-20 Random Glucose 141 70-99 mg/dl Calcium Level 9.7 8.5-10.1 mg/dl Phosphorus Level 3.3 2.5-4.9 mg/dl Magnesium Level 2.5 1.8-2.4 mg/dl Total Bilirubin 0.5 0.2-1 mg/dl Direct Bilirubin 0.2 0-0.2 mg/dl Aspartate Amino Transf (AST/SGOT) 10 15-37 U/L Alanine Aminotransferase (ALT/SGPT) 16 12-78 U/L Alkaline Phosphatase 51 45-117 U/L Troponin I < 0.015 0.019 0-0.045 ng/ml Total Protein 7.4 6.4-8.2 gm/dl Albumin 3.8 3.4-5.0 gm/dl Thyroid Stimulating Hormone (TSH) 1.750 0.300-4.500 uIu/ml Urine Color YELLOW Urine Appearance CLEAR CLEAR Urine pH 7.5 4.5-7.5 Urine Specific [place] 1.007 1.000-1.030 Urine Protein NEG NEG Urine Glucose (UA) NEG NEG Urine Ketones NEG NEG Urine Occult Blood NEG NEG Urine Nitrite NEG NEG Urine Bilirubin NEG NEG Urine Urobilinogen NEG NEG Urine Leukocyte Esterase NEG NEG Total Creatine Kinase 24 39-308 U/L Creatine Kinase MB 1.1 0.5-3.6 ng/ml Creatine Kinase MB Ratio 4.6 0-3.0 Bedside Glucose 177 70-99 mg/dl Test 05/21/16 02:39 Range/Units Creatine Kinase MB Ratio 0-3.0 Diagnostic Radiology Patient Name: KARINA WILKERSON Unit Number: [id number] Dictated: 05/20/161631 Transcribed: 05/20/161631 SCARLET Printed Date/Time: [~ rep prt dt]/[~ rep prt tm] [~ rep ct labl] - [~ rep ct ivnm] [facility] [place] [address] Dictated: 05/20/161631 Transcribed: 05/20/161631 JA Printed Date/Time: [~ rep prt dt]/[~ rep prt tm] [~ rep ct labl] - [~ rep ct ivnm] DIAGNOSTIC IMAGING [~ rep ct add3]] CHEST 2 VIEWS ROUTINE CLINICAL HISTORY: Exertional dyspnea, Stage IV kidney disease, 11 lb weight gain COMPARISON STUDY: Chest radiograph February 05, 2016. FINDINGS: There are few healed rib fractures. A nodular density projecting over the right lower lung likely reflects a nipple shadow. No pneumothorax or pleural effusion is present. A right subclavian pacemaker is in place. A disconnected lead is unchanged. There is no radiographic evidence of pulmonary edema. There is pulmonary vascular congestion. IMPRESSION: 1. Stable cardiomegaly. 2. Pulmonary vascular congestion. No overt pulmonary edema. Electronically signed by: Agustin Khan M.D. 05/20/2016 4:37 PM Dictated Date/Time: 05/20/2016 4:32 PM The status of this report is Signed. Draft = Not yet reviewed or approved by Radiologist. Signed = Reviewed and approved by Radiologist. <AttendingPhy></AttendingPhy> <FamilyPhy>Carlos Nunez M.D.</FamilyPhy> < PrimaryPhy>Carlos Nunez M.D.</PrimaryPhy> <UnitNumber>[id number]</UnitNumber> <VisitNumber>[id number]</VisitNumber> <PatientName>KARINA WILKERSON</PatientName> <DateOfBirth>1925</DateOfBirth> <Location>[facility]</Location> <ServiceDate></ServiceDate> <MNE>ESINDI</MNE> <OrderingPhy>Anselmo Bonilla MD</ OrderingPhy> <OrderingPhyMNE>f rep ord dr valdez</OrderingPhyMNE> <DictatingPhyMNE> f rep dict dr valdez</DictatingPhyMNE> <CCListMNE>f rep ct alfonsoe</CCListMNE> < AdmittingPhyMNE>f pt admit dr valdez</AdmittingPhyMNE> <AttendingPhyMNE>f pt attend dr valdez</AttendingPhyMNE> <ConsultingPhyMNE>f pt consult dr valdez</ConsultingPhyMNE> <FamilyPhyMNE>f pt fam dr valdez</FamilyPhyMNE> <OtherPhyMNE>f pt other dr valdez</OtherPhyMNE> < PrimaryPhyMNE>f pt prim care dr valdez</PrimaryPhyMNE> <ReferringPhyMNE>f pt referring dr valdez</ReferringPhyMNE> EKG EKG shows ventricular paced rhythm at 80 bpm, there are no acute ST-T changes. Impression Assessment and Plan CHF exacerbation/atrial fibrillation/coronary artery stent/cardiac pacemaker/ chronic kidney disease--the patient will be admitted to the telemetry unit, for serial cardiac enzymes, cardiac rhythm monitoring and a 2-D echocardiogram with Dopplers. We will hold his torsemide 30 mg by mouth twice a day, and instead place on Lasix 40 mg IV now and every morning. We'll follow serial basic metabolic panel and magnesium levels. We'll continue enteric-coated aspirin 81 mg by mouth daily, and metoprolol succinate 100 mg by mouth every evening. Of note, metolazone is on his med list, but he has only taken it 4 times, as he says it doesn't work and he doesn't like it. 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 Pace. Hypercholesterolemia--continue atorvastatin 80 mg by mouth at bedtime. Depression/anxiety--continue Lexapro 10 mg by mouth daily and lorazepam 0.5 mg by mouth twice a day. Diabetes mellitus--hold glimepiride, and place on Accu-Cheks before meals and at bedtime with NovoLog coverage. BPH--continue per finasteride 5 mg by mouth every 2 days. Glaucoma--continue Xalatan and Timoptic as directed. Liver function--continue ursodiol 300 mg by mouth twice a day. Continue Efudex one occasion topically twice a day. Level of Care Telemetry Advanced Directives Existing Advance Directive: No Existing Living Will: Yes Existing Power of Remedial [place]: Yes Resuscitation Status FULL RESUSCITATION VTE Prophylaxis VTE Risk Assessment Done? Y/N: Yes Risk Level: Moderate Given or contraindicated: SCD's
[2016-05-21 03:13] LABS: BASO % 0.4 %; BASO ABS # 0.02 K/uL (0-0.2); COMPLETE YES; HEMATOCRIT 28.9 % (42-52); IG% 0.2 %; LYMPH ABS # 0.89 K/uL (1.2-3.4); MEAN CELL VOLUME 96.3 fL (80-100); MEAN CORPUSCULAR HGB CONC 33.2 g/dl (32-36); MONO % 11.5 %; NEUT % 69.9 %; PLATELET COUNT 125 K/uL (130-400); WHITE BLOOD COUNT 5.55 K/uL (4.8-10.8)
[2016-05-21 03:27] LABS: INR 1.1 (0.9-1.1); PROTHROMBIN TIME (PATIENT) 11.7 SECONDS (9.0-12.0)
[2016-05-21 03:32] LABS: CALCIUM 9.7 mg/dl (8.5-10.1); CREATININE 2.2 mg/dl (0.60-1.40); MAGNESIUM 2.3 mg/dl (1.8-2.4); POTASSIUM 3.2 mmol/L (3.5-5.1)
[2016-05-21 03:37] LABS: CKMB/CK RATIO 4.2 (0-3.0)
[2016-05-21] MEDS ORDERED: POTASSIUM CHLR 10 MEQ / WTR 10 MEQ in PREMIXED WATER 100 ML IV STA (08:25)
[2016-05-21] MEDS ORDERED: CHOLECALCIFEROL 1000 INTER.UNIT TAB PO SCH (09:00)
[2016-05-21] MEDS: TIMOLOL GFS 0.5% OPH SOLN 74 DROPS/5 ML BTL OPB SCH (09:10)
[2016-05-21] MEDS: ESCITALOPRAM OXALATE 10 MG TAB PO SCH (09:11)
[2016-05-21] MEDS: CEROVITE ADV FORMULA TAB PO SCH (09:11)
[2016-05-21] MEDS: FINASTERIDE 5 MG TAB PO SCH (09:11)
--- NOTE | 2016-05-21 09:11 | Clinical Documentation Query ---
CLINICAL DOCUMENTATION QUERY Dr. SELF, In your clinical opinion is this patient being managed for: ( ) Acute on chronic diastolic CHF ( ) Acute on chronic systolic CHF ( ) Acute on chronic combined systolic and diastolic CHF (X) Other explanation of clinical findings: acute on chronic congestive heart failure with preserved ejection fractionDrParveen MeloNeri ( ) Unable to determine (Please Define) ( ) Need to Discuss ( ) Not Agree The medical record reflects the following clinical findings, treatment, and risk factors. Clinical Indicators: 89 yo male presenting with 11 lb wt gain over 2 weeks. H/P indicates CHF exacerbation. Treatment: ECHO pending, cardiology and nephrology consult, IV lasix, tele, metoprolol xl, Risk Factors: age, A fib, CKD, DM, CAD Please clarify and document your clinical opinion in the progress notes and discharge summary. Terms such as "probable", "suspected", "likely", "questionable", "possible", or "still to be ruled out" are acceptable. IF IN AGREEMENT, YOU MUST DOCUMENT ABOVE DIAGNOSTIC STATEMENT IN DAILY PROGRESS NOTES AND DISCHARGE SUMMARY. This document is not part of the patient's record. Thank You, Sherry Mart, RN [phone]
[2016-05-21] MEDS: URSODIOL 300 MG CAP PO SCH ×2 (09:12→20:06)
[2016-05-21] MEDS: INSULIN ASPART 100 UNITS/ML 3 ML PEN SC SCH ×4 (09:13→21:00)
--- NOTE | 2016-05-21 09:13 | Clinical Documentation Query ---
CLINICAL DOCUMENTATION QUERY Dr. GA, In your clinical opinion is this patient being managed for: ( ) Acute on chronic diastolic CHF (x ) Acute on chronic systolic CHF ( ) Acute on chronic combined systolic and diastolic CHF ( ) Other explanation of clinical findings (Please Explain) ( ) Unable to determine (Please Define) ( ) Need to Discuss ( ) Not Agree The medical record reflects the following clinical findings, treatment, and risk factors. Clinical Indicators: 89 yo male presenting with 11 lb wt gain over 2 weeks. H/P indicates CHF exacerbation. Treatment: ECHO results are pending, cardiology and nephrology consult, IV lasix, tele, metoprolol xl, Risk Factors: age, A fib, CKD, DM, CAD Please clarify and document your clinical opinion in the progress notes and discharge summary. Terms such as "probable", "suspected", "likely", "questionable", "possible", or "still to be ruled out" are acceptable. IF IN AGREEMENT, YOU MUST DOCUMENT ABOVE DIAGNOSTIC STATEMENT IN DAILY PROGRESS NOTES AND DISCHARGE SUMMARY. This document is not part of the patient's record. Thank You, Sherry Mart, EMETERIO [phone]
[2016-05-21] MEDS: LORAZEPAM 0.5 MG TAB PO SCH ×2 (09:20→20:06)
[2016-05-21] MEDS: BOOST VANILLA PO SCH ×2 (09:20)
--- NOTE | 2016-05-21 09:37 | Family Medicine Progress Note ---
Progress Note Date of Service May 21, 2016. Subjective Pt evaluation today including: conversation w/ patient, conversation w/ family (), physical exam, chart review, lab review, review of studies, conversation w/ dairy consultant (Dr Julien), review of inpatient medication list Voiding: no voiding problems Mr Alcaraz is feeling slightly better this morning. A bit easier to breath. He has been on a slowly progressive downhill slope regarding his heart failure, mitral regurgitation and aortic stenosis. More recently however he has been putting off going to see the doctor despite his weight increasing as he is getting fed up with hospitals. He does not wish to be resuscitated in the event of a cardiac arrest. He also notes he has had difficulty swallowing for the last 2 weeks. This is mainly with liquids especially with water where he appears to regurgitate. All Other Systems: Reviewed and Negative Medications Current Inpatient Medications Medications (Trade) Dose Ordered Sig/Angus Route Start Time Stop Time Status Last Admin Dose Admin Acetaminophen (Tylenol Tab) 650 mg Q4H PRN PO 05/20/16 18:45 06/19/16 18:44 Zolpidem Tartrate (Ambien Tab) 5 mg HSZ PRN PO 05/20/16 18:45 06/19/16 18:44 Nitroglycerin (Nitrostat Tab) 0.4 mg UD PRN SL 05/20/16 18:45 06/19/16 18:44 Aspirin (Ecotrin Tab) 81 mg QPM PO 05/20/16 21:00 06/19/16 20:59 05/20/16 22:14 81 MG Atorvastatin Calcium (Lipitor Tab) 80 mg HS PO 05/20/16 21:00 06/19/16 20:59 05/20/16 22:14 80 MG Escitalopram Oxalate (Lexapro Tab) 10 mg DAILY PO 05/21/16 09:00 06/20/16 08:59 05/21/16 09:11 10 MG Finasteride (Proscar Tab) 5 mg Q2D@0900 PO 05/21/16 09:00 06/20/16 08:59 05/21/16 09:11 5 MG Latanoprost (Xalatan Oph Soln) 1 drops HS OPB 05/20/16 22:00 06/19/16 21:59 05/20/16 22:16 1 DROPS Lorazepam (Ativan Tab) 0.5 mg BID PO 05/20/16 21:00 06/19/16 20:59 05/21/16 09:20 0.5 MG Meclizine HCl (Antivert Tab) 25 mg Q8 PRN PO 05/20/16 18:45 06/19/16 18:44 Metoprolol Succinate (Toprol Xl Tab) 100 mg QPM PO 05/20/16 21:00 06/19/16 20:59 05/20/16 22:15 100 MG Multivitamins/ Minerals (Multivitamin W/ Minerals Tab) 1 tab DAILY PO 05/21/16 09:00 06/20/16 08:59 05/21/16 09:11 1 TAB Enteral Nutritional Formula (Boost) 1 can BID PO 05/20/16 21:00 06/19/16 20:59 05/21/16 09:20 1 CAN Timolol Maleate (Timoptic-Xe 0.5% Oph Soln) 1 drops QAM OPB 05/21/16 09:00 06/20/16 08:59 05/21/16 09:10 1 DROPS Ursodiol (Actigall Cap) 300 mg BID PO 05/20/16 21:00 06/19/16 20:59 05/21/16 09:12 300 MG Miscellaneous Information (Order Awaiting Action) 1 ea QS N/A 05/21/16 00:00 06/20/16 00:00 Cholecalciferol (Vitamin D Tab) 2,000 inter.unit QAM PO 05/21/16 09:00 06/20/16 08:59 05/21/16 09:11 2,000 INTER.UNIT Ondansetron HCl (Zofran Inj) 4 mg Q6H PRN IV 05/20/16 18:45 06/19/16 18:44 Insulin Aspart (novoLOG ASPART) SLIDING SCALE If C... ACHS SC 05/20/16 21:30 06/19/16 21:29 05/20/16 22:17 1 UNITS Glucose (Glucose 40% Gel) UD PRN PO 05/20/16 18:45 06/19/16 18:44 Glucose (Glucose Chew Tab) 1 tabs UD PRN PO 05/20/16 18:45 06/19/16 18:44 Dextrose (Dextrose 50% 50ML Syringe) 50 ml UD PRN IV 05/20/16 18:45 06/19/16 18:44 Glucagon 1 mg 1 mg UD PRN SQ 05/20/16 18:45 06/19/16 18:44 Furosemide/Syringe (Lasix Inj/ Syringe) 4 ml @ 4 mls/min QAM IV 05/21/16 09:00 06/20/16 08:59 Objective Vital Signs Date Time Temp Pulse Resp B/P Pulse Ox O2 Delivery O2 Flow Rate FiO2 05/21/16 07:56 36.7 69 16 113/55 94 Room Air 05/21/16 05:09 36.4 77 16 125/70 91 Room Air 05/21/16 04:00 Room Air 05/21/16 00:04 36.7 71 16 112/53 96 Room Air 05/21/16 00:00 Room Air 05/20/16 21:30 36.7 87 18 121/65 97 Room Air 05/20/16 20:27 67 18 120/63 94 Room Air 05/20/16 19:50 Room Air 05/20/16 19:14 66 18 130/66 93 Room Air 05/20/16 17:44 05/20/16 17:42 119/63 05/20/16 16:11 63 05/20/16 16:06 62 05/20/16 15:46 66 94 05/20/16 15:41 65 97 05/20/16 15:36 67 13 97 05/20/16 15:34 70 05/20/16 15:31 66 16 98 05/20/16 15:26 65 28 96 05/20/16 15:21 78 12 99 05/20/16 15:21 99 Room Air 05/20/16 15:07 36.5 92 20 122/72 97 Room Air Physical Exam General Appearance: no apparent distress Eyes: normal inspection (pupils equal) ENT: + pertinent finding (dry mouth) Neck: + JVD (up to ear lobe (severe TR)) Respiratory/Chest: no respiratory distress, no accessory muscle use, + crackles (bibasal crackles) Cardiovascular: regular rate, rhythm, no murmur Abdomen: normal bowel sounds, non tender, soft Extremities: no calf tenderness, normal capillary refill, + pedal edema (3+ ankles 1+ to knees) Neurologic/Psychiatric: no motor/sensory deficits, alert Skin: + pertinent finding (multple bruises, no rashes) Laboratory Results 05/21/16 02:57 Red Blood Count 3.00, Mean Corpuscular Volume 96.3, Mean Corpuscular Hemoglobin 32.0, Mean Corpuscular Hemoglobin Concent 33.2, Mean Platelet Volume 9.0, Neutrophils (%) (Auto) 69.9, Lymphocytes (%) (Auto) 16.0, Monocytes (%) (Auto) 11.5, Eosinophils (%) (Auto) 2.0, Basophils (%) (Auto) 0.4, Neutrophils # (Auto ) 3.88, Lymphocytes # (Auto) 0.89, Monocytes # (Auto) 0.64, Eosinophils # (Auto ) 0.11, Basophils # (Auto) 0.02 05/21/16 02:57 Test 05/20/16 15:35 05/20/16 17:42 05/21/16 02:57 05/21/16 07:46 Phosphorus Level 3.3 mg/dl (2.5-4.9) Thyroid Stimulating Hormone (TSH) 1.750 uIu/ml (0.300-4.500) Urine Color YELLOW Urine Appearance CLEAR (CLEAR) Urine pH 7.5 (4.5-7.5) Urine Specific [place] 1.007 (1.000-1.030) Urine Protein NEG (NEG) Urine Glucose (UA) NEG (NEG) Urine Ketones NEG (NEG) Urine Occult Blood NEG (NEG) Urine Nitrite NEG (NEG) Urine Bilirubin NEG (NEG) Urine Urobilinogen NEG (NEG) Urine Leukocyte Esterase NEG (NEG) White Blood Count 5.55 K/uL (4.8-10.8) Red Blood Count 3.00 M/uL (4.7-6.1) Hemoglobin 9.6 g/dL (14.0-18.0) Hematocrit 28.9 % (42-52) Mean Corpuscular Volume 96.3 fL (80-100) Mean Corpuscular Hemoglobin 32.0 pg (25-34) Mean Corpuscular Hemoglobin Concent 33.2 g/dl (32-36) Platelet Count 125 K/uL (130-400) Mean Platelet Volume 9.0 fL (7.4-10.4) Neutrophils (%) (Auto) 69.9 % Lymphocytes (%) (Auto) 16.0 % Monocytes (%) (Auto) 11.5 % Eosinophils (%) (Auto) 2.0 % Basophils (%) (Auto) 0.4 % Neutrophils # (Auto) 3.88 K/uL (1.4-6.5) Lymphocytes # (Auto) 0.89 K/uL (1.2-3.4) Monocytes # (Auto) 0.64 K/uL (0.11-0.59) Eosinophils # (Auto) 0.11 K/uL (0-0.5) Basophils # (Auto) 0.02 K/uL (0-0.2) RDW Standard Deviation 46.8 fL (36.4-46.3) RDW Coefficient of Variation 13.3 % (11.5-14.5) Immature Granulocyte % (Auto) 0.2 % Immature Granulocyte # (Auto) 0.01 K/uL (0.00-0.02) Prothrombin Time 11.7 SECONDS (9.0-12.0) Prothromb Time International Ratio 1.1 (0.9-1.1) Activated Partial Thromboplast Time 25.9 SECONDS (21.0-31.0) Partial Thromboplastin Ratio 1.0 Anion Gap 9.0 mmol/L (3-11) Est Creatinine Clear Calc Drug Dose 22.2 ml/min Estimated GFR () 29.7 Estimated GFR (Non- 25.6 BUN/Creatinine Ratio 25.0 (10-20) Calcium Level 9.7 mg/dl (8.5-10.1) Magnesium Level 2.3 mg/dl (1.8-2.4) Total Bilirubin 0.6 mg/dl (0.2-1) Direct Bilirubin 0.2 mg/dl (0-0.2) Aspartate Amino Transf (AST/SGOT) 9 U/L (15-37) Alanine Aminotransferase (ALT/SGPT) 16 U/L (12-78) Alkaline Phosphatase 51 U/L (45-117) Total Creatine Kinase 24 U/L (39-308) Creatine Kinase MB 1.0 ng/ml (0.5-3.6) Creatine Kinase MB Ratio 4.2 (0-3.0) Troponin I 0.018 ng/ml (0-0.045) Total Protein 7.0 gm/dl (6.4-8.2) Albumin 3.6 gm/dl (3.4-5.0) Bedside Glucose 109 mg/dl (70-99) Assessment and Plan 89 yo male with aortic stenosis, mitral regurgitation and heart failure New onset dysphagia - risk of stroke with atrial fibrillation and not on anticoagulation - speech eval Acute on chronic congestive heart failure - Metoprolol 100 mg XL - not on ACEi due to CKD - repeat echo - consult cardiology - consult palliative care - mouth care Chronic atrial fibrillation with tachy/fabrizio + pacemaker - not for anticoagulation as per patient choice after epistaxis - rate controlled with metoprolol Coronary artery disease with stent - ASA, statin, BB, (not on ACEi due to CKD) CKD stage 4 - Consult nephrology - serial BMPs gentle diuresis Depression/anxiety -continue Lexapro 10 mg by mouth daily and lorazepam 0.5 mg by mouth twice a day. Diabetes mellitus - hold glimepiride - place on Accu-Cheks before meals and at bedtime with NovoLog coverage. BPH - continue per finasteride 5 mg by mouth every 2 days. Glaucoma - continue Xalatan and Timoptic as directed. Liver function - continue ursodiol 300 mg by mouth twice a day. Continue Efudex one occasion topically twice a day. VTE Prophylaxis - SCDs Code - DNR Disposition - continue on telemetry for another 24 hours while diuresing Resident Physician Supervision Note: I was present with PGY2 Dr. Dmitry Alcala during the history and exam. I discussed the case with the resident and agree with the findings and plan as documented in the note. Any exceptions or clarifications are listed here: none. Pt w/ dysphagia - solids/liquids - 2-4 weeks. Has associated regurgitation. SOB/dyspnea/orthopnea improved. VSS o2 sats nl gen - NAD mouth - posterior pharyngeal wall is asymmetric heart - RRR, s1, s2, 3/6 holosystolic murmur RUSB; 2/6 holosystolic murmur LLSB lungs - scant bibasilar rales neck - JVD to the jaw neuro - no facial droop, no dysarthria, strength 5/5 x 4 exts labs - Cr 2.2, K 3.2 A/P: 1. acute/chronic systolic CHF - improved. Cont diuresis. 2. severe 3. dysphagia - video swallow results reviewed; etiology uncertain. Plan - NPO, GI consultation. I don't see signs of a stroke on exam. 4. CKD stage 4 - creatinine @ baseline. 5. hypokalemia - replace IV. Documented By: Dmitry Bar MD Resident Tracking Resident Involvement: Resident Care Provided Care Provided: Adult Hospital Medicine
[2016-05-21] MEDS: FUROSEMIDE INJ 40 MG in SYRINGE 0 ML IV SCH (10:49)
--- NOTE | 2016-05-21 10:56 | Nephrology Consultation ---
Nephrology Consultation Date & Providers Date of Consultation: May 21, 2016. Primary Care Provider: Carlos Nunez M.D. Referring Provider: Reason for Consultation Evaluation of chronic kidney disease, anemia and exertional dyspnea History of Present Illness Mr. Ly is an 89 year old white male who is seen at the request of Dr. Millan for evaluation of chronic kidney disease, anemia and exertional dyspnea. Medical records in the EMR were reviewed today and are summarized as follows: Mr. Ly has stage IV CKD w/ baseline creatinine 2.1, iron deficiency anemia, HTN, BPH, AODM, atrial fibrillation and valvular heart disease. Echocardiogram 2013 revealed LVEF 45 - 50%, moderate , moderate to severe MR, pulmonary HTN and severe TR. 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 Mr. Alcaraz states that over the last 2 weeks his weight has increased 11 lbs (baseline wt 155 lbs --> 167 lbs) and his dyspnea has worsened to the point that he was experiencing orthopnea. He was admitted to the hospital for cardiac evaluation and IV diuretic therapy. Past Medical/Surgical History Medical: # CKD stage IV (advanced impairment). Baseline creatinine 2.1 w/ EGFR 25 cc/ min # Iron deficiency anemia - previous colonoscopy w/ polyp. Patient has required IV iron in the past # HTN # BPH # AODM # Atrial fibrillation # Valvular heart disease: Echo - LVEF 40 - 45%, moderate , moderate to severe MR, pulmonary HTN and severe TR Surgical: # Pacemaker placement Allergies Coded Allergies: Adhesives (Verified Allergy, Unknown, "RED RASH AND ITCHES", 05/20/16) Morphine (Verified Adverse Reaction, Mild, headaches, 05/20/16) Inpatient Medications Current Inpatient Medications Medications (Trade) Dose Ordered Sig/Angus Route Start Time Stop Time Status Last Admin Dose Admin Acetaminophen (Tylenol Tab) 650 mg Q4H PRN PO 05/20/16 18:45 06/19/16 18:44 Zolpidem Tartrate (Ambien Tab) 5 mg HSZ PRN PO 05/20/16 18:45 06/19/16 18:44 Nitroglycerin (Nitrostat Tab) 0.4 mg UD PRN SL 05/20/16 18:45 06/19/16 18:44 Aspirin (Ecotrin Tab) 81 mg QPM PO 05/20/16 21:00 06/19/16 20:59 05/20/16 22:14 81 MG Atorvastatin Calcium (Lipitor Tab) 80 mg HS PO 05/20/16 21:00 06/19/16 20:59 05/20/16 22:14 80 MG Escitalopram Oxalate (Lexapro Tab) 10 mg DAILY PO 05/21/16 09:00 06/20/16 08:59 05/21/16 09:11 10 MG Finasteride (Proscar Tab) 5 mg Q2D@0900 PO 05/21/16 09:00 06/20/16 08:59 05/21/16 09:11 5 MG Latanoprost (Xalatan Oph Soln) 1 drops HS OPB 05/20/16 22:00 06/19/16 21:59 05/20/16 22:16 1 DROPS Lorazepam (Ativan Tab) 0.5 mg BID PO 05/20/16 21:00 06/19/16 20:59 05/21/16 09:20 0.5 MG Meclizine HCl (Antivert Tab) 25 mg Q8 PRN PO 05/20/16 18:45 06/19/16 18:44 Metoprolol Succinate (Toprol Xl Tab) 100 mg QPM PO 05/20/16 21:00 06/19/16 20:59 05/20/16 22:15 100 MG Multivitamins/ Minerals (Multivitamin W/ Minerals Tab) 1 tab DAILY PO 05/21/16 09:00 06/20/16 08:59 05/21/16 09:11 1 TAB Enteral Nutritional Formula (Boost) 1 can BID PO 05/20/16 21:00 06/19/16 20:59 05/21/16 09:20 1 CAN Timolol Maleate (Timoptic-Xe 0.5% Oph Soln) 1 drops QAM OPB 05/21/16 09:00 06/20/16 08:59 05/21/16 09:10 1 DROPS Ursodiol (Actigall Cap) 300 mg BID PO 05/20/16 21:00 06/19/16 20:59 05/21/16 09:12 300 MG Miscellaneous Information (Order Awaiting Action) 1 ea QS N/A 05/21/16 00:00 06/20/16 00:00 Cholecalciferol (Vitamin D Tab) 2,000 inter.unit QAM PO 05/21/16 09:00 06/20/16 08:59 05/21/16 09:11 2,000 INTER.UNIT Ondansetron HCl (Zofran Inj) 4 mg Q6H PRN IV 05/20/16 18:45 06/19/16 18:44 Insulin Aspart (novoLOG ASPART) SLIDING SCALE If C... ACHS SC 05/20/16 21:30 06/19/16 21:29 05/20/16 22:17 1 UNITS Glucose (Glucose 40% Gel) UD PRN PO 05/20/16 18:45 06/19/16 18:44 Glucose (Glucose Chew Tab) 1 tabs UD PRN PO 05/20/16 18:45 06/19/16 18:44 Dextrose (Dextrose 50% 50ML Syringe) 50 ml UD PRN IV 05/20/16 18:45 06/19/16 18:44 Glucagon 1 mg 1 mg UD PRN SQ 05/20/16 18:45 06/19/16 18:44 Furosemide/Syringe (Lasix Inj/ Syringe) 4 ml @ 4 mls/min QAM IV 05/21/16 09:00 06/20/16 08:59 Family History Cancer Diabetes mellitus FH: heart disease Hypertension Negative for CKD / ESRD Social History Smoking Status: Former Smoker Alcohol Use: none Drug Use: none Marital Status: Housing Status: lives with family 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 Remote h/o tobacco use Review of Systems Constitutional: No fever Respiratory: + dyspnea at rest, + dyspnea on exertion, No cough Cardiovascular: No chest pain Abdomen: No diarrhea, No pain, No vomiting Psychiatric: + depression symptoms A complete review of systems was performed. Pertinent positives are noted above. All other systems are negative. Physical Exam Date Time Temp Pulse Resp B/P Pulse Ox O2 Delivery O2 Flow Rate FiO2 05/21/16 07:56 36.7 69 16 113/55 94 Room Air 05/21/16 05:09 36.4 77 16 125/70 91 Room Air 05/21/16 04:00 Room Air 05/21/16 00:04 36.7 71 16 112/53 96 Room Air 05/21/16 00:00 Room Air 05/20/16 21:30 36.7 87 18 121/65 97 Room Air 05/20/16 20:27 67 18 120/63 94 Room Air 05/20/16 19:50 Room Air 05/20/16 19:14 66 18 130/66 93 Room Air 05/20/16 17:44 05/20/16 17:42 119/63 05/20/16 16:11 63 05/20/16 16:06 62 05/20/16 15:46 66 94 05/20/16 15:41 65 97 05/20/16 15:36 67 13 97 05/20/16 15:34 70 05/20/16 15:31 66 16 98 05/20/16 15:26 65 28 96 05/20/16 15:21 78 12 99 05/20/16 15:21 99 Room Air 05/20/16 15:07 36.5 92 20 122/72 97 Room Air General Appearance: + pertinent finding (chronically ill appearing) Head: atraumatic (temporal muscle wasting) Eyes: PERRL, EOMI Neck: no adenopathy, + JVD Respiratory/Chest: lungs clear Cardiovascular: regular rate, rhythm Abdomen/GI: soft, + distended Extremities/Musculoskelatal: no calf tenderness, no pedal edema Neurologic/Psych: alert Laboratory Results ECG 05/20/16: Paced rhythm. CXR 05/20/16: 1. Stable cardiomegaly. 2. Pulmonary vascular congestion. No overt pulmonary edema. Last 24 Hours Test 05/20/16 15:35 05/20/16 17:42 05/20/16 19:35 05/20/16 21:54 White Blood Count 6.24 K/uL Red Blood Count 3.00 M/uL Hemoglobin 9.6 g/dL Hematocrit 28.3 % Mean Corpuscular Volume 94.3 fL Mean Corpuscular Hemoglobin 32.0 pg Mean Corpuscular Hemoglobin Concent 33.9 g/dl Platelet Count 130 K/uL Mean Platelet Volume 9.3 fL Neutrophils (%) (Auto) 72.7 % Lymphocytes (%) (Auto) 12.3 % Monocytes (%) (Auto) 12.0 % Eosinophils (%) (Auto) 2.4 % Basophils (%) (Auto) 0.3 % Neutrophils # (Auto) 4.53 K/uL Lymphocytes # (Auto) 0.77 K/uL Monocytes # (Auto) 0.75 K/uL Eosinophils # (Auto) 0.15 K/uL Basophils # (Auto) 0.02 K/uL RDW Standard Deviation 45.8 fL RDW Coefficient of Variation 13.3 % Immature Granulocyte % (Auto) 0.3 % Immature Granulocyte # (Auto) 0.02 K/uL Prothrombin Time 11.2 SECONDS Prothromb Time International Ratio 1.0 Activated Partial Thromboplast Time 21.5 SECONDS Partial Thromboplastin Ratio 0.8 Sodium Level 139 mmol/L Potassium Level 3.6 mmol/L Chloride Level 100 mmol/L Carbon Dioxide Level 30 mmol/L Anion Gap 9.0 mmol/L Blood Urea Nitrogen 56 mg/dl Creatinine 2.20 mg/dl Est Creatinine Clear Calc Drug Dose 22.2 ml/min Estimated GFR () 29.7 Estimated GFR (Non- 25.6 BUN/Creatinine Ratio 25.4 Random Glucose 141 mg/dl Calcium Level 9.7 mg/dl Phosphorus Level 3.3 mg/dl Magnesium Level 2.5 mg/dl Total Bilirubin 0.5 mg/dl Direct Bilirubin 0.2 mg/dl Aspartate Amino Transf (AST/SGOT) 10 U/L Alanine Aminotransferase (ALT/SGPT) 16 U/L Alkaline Phosphatase 51 U/L Troponin I < 0.015 ng/ml 0.019 ng/ml Total Protein 7.4 gm/dl Albumin 3.8 gm/dl Thyroid Stimulating Hormone (TSH) 1.750 uIu/ml Urine Color YELLOW Urine Appearance CLEAR Urine pH 7.5 Urine Specific [place] 1.007 Urine Protein NEG Urine Glucose (UA) NEG Urine Ketones NEG Urine Occult Blood NEG Urine Nitrite NEG Urine Bilirubin NEG Urine Urobilinogen NEG Urine Leukocyte Esterase NEG Total Creatine Kinase 24 U/L Creatine Kinase MB 1.1 ng/ml Creatine Kinase MB Ratio 4.6 Bedside Glucose 177 mg/dl Test 05/21/16 02:57 05/21/16 07:46 05/21/16 10:36 05/21/16 10:42 White Blood Count 5.55 K/uL Red Blood Count 3.00 M/uL Hemoglobin 9.6 g/dL Hematocrit 28.9 % Mean Corpuscular Volume 96.3 fL Mean Corpuscular Hemoglobin 32.0 pg Mean Corpuscular Hemoglobin Concent 33.2 g/dl Platelet Count 125 K/uL Mean Platelet Volume 9.0 fL Neutrophils (%) (Auto) 69.9 % Lymphocytes (%) (Auto) 16.0 % Monocytes (%) (Auto) 11.5 % Eosinophils (%) (Auto) 2.0 % Basophils (%) (Auto) 0.4 % Neutrophils # (Auto) 3.88 K/uL Lymphocytes # (Auto) 0.89 K/uL Monocytes # (Auto) 0.64 K/uL Eosinophils # (Auto) 0.11 K/uL Basophils # (Auto) 0.02 K/uL RDW Standard Deviation 46.8 fL RDW Coefficient of Variation 13.3 % Immature Granulocyte % (Auto) 0.2 % Immature Granulocyte # (Auto) 0.01 K/uL Prothrombin Time 11.7 SECONDS Prothromb Time International Ratio 1.1 Activated Partial Thromboplast Time 25.9 SECONDS Partial Thromboplastin Ratio 1.0 Sodium Level 142 mmol/L Potassium Level 3.2 mmol/L Chloride Level 99 mmol/L Carbon Dioxide Level 34 mmol/L Anion Gap 9.0 mmol/L Blood Urea Nitrogen 55 mg/dl Creatinine 2.20 mg/dl Est Creatinine Clear Calc Drug Dose 22.2 ml/min Estimated GFR () 29.7 Estimated GFR (Non- 25.6 BUN/Creatinine Ratio 25.0 Random Glucose 65 mg/dl Calcium Level 9.7 mg/dl Magnesium Level 2.3 mg/dl Total Bilirubin 0.6 mg/dl Direct Bilirubin 0.2 mg/dl Aspartate Amino Transf (AST/SGOT) 9 U/L Alanine Aminotransferase (ALT/SGPT) 16 U/L Alkaline Phosphatase 51 U/L Total Creatine Kinase 24 U/L Creatine Kinase MB 1.0 ng/ml Creatine Kinase MB Ratio 4.2 Troponin I 0.018 ng/ml Total Protein 7.0 gm/dl Albumin 3.6 gm/dl Bedside Glucose 109 mg/dl Transferrin % Saturation % Impression (1) Dyspnea on exertion (2) Orthopnea (3) Valvular heart disease (4) Chronic kidney disease, stage 4 (severe) (5) Anemia Patient admitted w/ 11 lb weight gain, progressive dyspnea on exertion and orthopnea. He has severe valvular heart disease, anemia and stable stage IV CKD. Recommendations VALVULAR HEART DISEASE: -- Dyspnea is likely related to LV dysfunction, and pulmonary HTN -- Continue gentle diuresis. May need to accept worsening kidney function in order to improve pulmonary symptoms and quality of life. Target weight 155 lbs. CHRONIC KIDNEY DISEASE: -- Baseline creatinine has been 2.1 -- Poor dialysis candidate due to valvular heart disease -- Recommend supplement to maintain K > 4.0, Mg > 1.8 -- Monitor serial PRP ANEMIA: -- Will check iron stores and FOBT -- Patient might benefit from IV iron therapy
[2016-05-21 12:25] LABS: CKMB/CK RATIO 4.6 (0-3.0); FERRITIN 263.9 ng/ml (8.0-388.0)
--- NOTE | 2016-05-21 12:59 | DIAGNOSTIC IMAGING REPORT ---
MODIFIED BARIUM SWALLOW CLINICAL HISTORY: Thin liquid regurgitation. COMPARISON STUDY: No previous studies for comparison. Fluoroscopy time: 1.5 minutes. FINDINGS: Delayed initiation of the swallowing mechanism was noted. No regurgitation was identified within liquids by spoon. However, there was regurgitation with single swallows of thin liquids as well as retrograde motion of contrast with pudding consistency. Evaluation for aspiration was suboptimal on this exam. There is possible trace tracheal aspiration with thin liquids. Significant esophageal dysmotility is suspected. IMPRESSION: 1. Regurgitation of swallows of thin liquids and pudding consistencies with suspected esophageal dysmotility. 2. Suboptimal evaluation for tracheal aspiration. Possible minimal tracheal aspiration with thin liquids. 3. Full recommendations by speech pathology to follow. Electronically signed by: Agustin Khan M.D. 05/21/2016 12:58 PM Dictated Date/Time: 05/21/2016 12:52 PM
--- NOTE | 2016-05-21 13:56 | CARDIOLOGY CONSULTATION ---
DATE OF CONSULTATION: 05/21/2016 PRIMARY PHYSICIAN: Carlos Nunez MD CONSULTING PHYSICIAN: Jasper Min MD HISTORY OF PRESENT ILLNESS: The patient is an 89-year-old white male. He is very well known to me. Longstanding history of coronary artery disease. He also has a history of left ventricular systolic dysfunction, chronic atrial fibrillation, severe mitral and tricuspid regurgitation, severe RV dilatation, moderate aortic stenosis, and moderate pulmonary hypertension. He has refused in the past surgical intervention for his valvular heart disease. Because of recurrent and multiple episodes of epistasis, requiring cauterization, he is no longer on anticoagulation therapy. He refuses further anticoagulation therapy. He also has a history of chronic anemia, stage IV chronic kidney disease, dyslipidemia, diabetes mellitus, hypertension, and sick sinus syndrome. Status post implantation of permanent pacemaker. Generator replacement in 2007. The patient at his baseline has dyspnea on exertion walking approximately 10-20 feet. At baseline, he has 2-pillow orthopnea. He states that over the past 2 weeks, he has had increased fatigue, increased dyspnea, and weight gain. He has been compliant with his medications and a low sodium diet. He states he has gained at least 11 pounds over the past 2 weeks. His orthopnea has progressed to the need to sleep upright in a chair instead sleeping in his bed. He has not noted any leg edema. He has felt that his ankles and feet had been more swollen than usual. He denies any increased abdominal girth. He does complain of increased abdominal bloating sensation and increased gas. Occasional postural lightheadedness. He denies any palpitations or syncope. No fevers or chills. He denies any symptoms of bleeding. No cerebrovascular complaints suggestive of a thromboembolic event. No peripheral vascular complaints suggestive of a thromboembolic event. The patient came to the Emergency Department yesterday for evaluation of these symptoms. He was admitted to telemetry unit. He had received intravenous diuretics. He has not noted any significant change in his symptoms of dyspnea since admission. He continues to deny any chest pain. No palpitations. PAST MEDICAL HISTORY: 1. Coronary artery disease. Cardiac catheterization in 2007 with mild left main stenosis, moderate proximal and mid LAD stenosis, severe ostial LAD diagonal stenosis, and mild stenosis in the left circumflex coronary artery. Left dominant circulation. LV angiography revealed apical and anterolateral hypokinesis. He underwent deployment of a 2.5 x 24 mm micro laborer driver and a 3 x 12 mm laborer driver bare-metal stents in the LAD. PTCA was performed to the LAD diagonal. 2. Multi-valvular heart disease. Moderate aortic stenosis, severe mitral and tricuspid regurgitation. 3. Ischemic cardiomyopathy. LV ejection fraction in the past on echo 45%-50%. 4. Chronic atrial fibrillation. 5. Sick sinus syndrome. Status post permanent ventricular pacemaker. 6. Type 2 diabetes mellitus. 7. History of anxiety and depression. 8. Benign prostatic hypertrophy. 9. Dyslipidemia. 10. Glaucoma. 11. Meniere's disease. 12. Chronic anemia. 13. History of pancreatitis. 14. Gallbladder disease. PAST SURGICAL HISTORY: 1. Status post cataract surgery. 2. Status post hemorrhoidectomy. 3. Status post inguinal hernia repair. 4. Status post mastoidectomy. 5. Status post tonsillectomy and adenoidectomy. FAMILY HISTORY: History of stroke in his mother. History of myocardial infarction in his father. Daughter with Crohn's disease. There is a family history of diabetes mellitus. SOCIAL HISTORY: The patient is and lives with his . Former cigarette smoker. He does not drink alcohol. He is retired. ALLERGIES AND ADVERSE DRUG REACTIONS: ADHESIVES AND MORPHINE. CURRENT MEDICATIONS: Lexapro 10 mg daily, finasteride 5 mg every 2 days, multivitamin 1 daily, timolol 1 drop daily, vitamin D 2000 units daily, furosemide 40 mg IV daily, Xalatan eyedrops 1 drop daily, NovoLog sliding scale insulin, aspirin 81 mg daily, atorvastatin 80 mg at bedtime, lorazepam 0.5 mg b.i.d., metoprolol succinate ER 100 mg daily, ursodiol 300 mg p.o. b.i.d., and several p.r.n. medications. REVIEW OF SYSTEMS: 1. As above. 2. Sensation of increased heart rate after exertion. 3. Decreased appetite. 4. Occasional difficulty in swallowing solids and liquids. 5. Nonproductive cough when supine. 6. No external bleeding complaints. He does complain of ecchymoses. 7. He states he had a mechanical fall last week. He suffered a contusion to his left shoulder and arm. This resulted in hematoma and ecchymoses. 8. No focal motor weakness or symptoms suggestive of CVA or TIA. PHYSICAL EXAMINATION: GENERAL: The patient is lying in his bed. He appears to be mildly dyspneic at rest. His head is elevated approximately 30-40 degrees. VITAL SIGNS: This morning with oral temperature 36.7, pulse 69, blood pressure 113/55, and pulse oximetry in room air 94%. NECK: Jugular venous pressure approximately 10-11 cm. Carotids 2/2 bilaterally. Transmitted murmur versus bruit, left carotid artery. EARS: Bilateral hearing loss. Bilateral hearing aids. EYES: Pupils equal and round. Nonicteric. Conjunctivae normal. No xanthelasma. LUNGS: He is mildly dyspneic at rest. Decreased breath sounds at both bases. No rales or wheezes heard. HEART: PMI not palpable. No lifts or heaves. Regular rate and rhythm. Diminished aortic valvular closing sound. A 2/6 crescendo-decrescendo murmur in the second right intercostal space. A 3/6 holosystolic murmur left lower sternal border and apex radiating to axilla. No diastolic murmur, S3, or rub heard. ABDOMEN: Slightly distended. Positive bowel sounds. Nontender. No palpable masses or organomegaly. EXTREMITIES: Trace pedal and ankle edema bilaterally. No cyanosis or clubbing. NEUROLOGIC: Alert and oriented x3. Motor grossly intact. PSYCHIATRIC: Affect is normal. SKIN: Ecchymoses on both arms. Ecchymoses in the left upper arm. DATA: Monitor reveals a ventricular paced rhythm. Chest x-ray performed yesterday and reviewed by me shows increased heart size. No evidence of pulmonary edema. Increased pulmonary vasculature. Right-sided permanent pacemaker. Two ventricular leads and one atrial lead noted. Electrocardiogram performed yesterday and reviewed by me reveals ventricular paced rhythm at a rate of 80 beats per minute. LABORATORY DATA: Today with WBC 5.55, hemoglobin 9.6, hematocrit 28.9, and platelet count 125. INR 1.1 and PTT 25.9. Sodium 142, potassium 3.2, chloride 99, carbon dioxide 34, BUN 55, creatinine 2.20, and random glucose 65. AST 9 and ALT 16. Albumin 3.6. Troponin I is less than 0.015, 0.019, and 0.018. TSH is 1.750. ASSESSMENT: 1. Acute on chronic systolic heart failure. The patient has had progressively worsening dyspnea on exertion over the past year. This has been accompanied by fatigue. 2. Complained of weight gain over the past 2 weeks. Despite the weight gain that he reports no evidence on exam of any significant volume overload. 3. No evidence on lung exam of any significant pulmonary vascular congestion. No evidence on chest x-ray of any significant congestive heart failure. However, the patient does have worsening orthopnea and dyspnea on exertion over the past 2 weeks. 4. Multi-valvular heart disease including aortic stenosis, mitral regurgitation, and tricuspid regurgitation. 5. Pulmonary hypertension. 6. Chronic kidney disease. 7. Chronic anemia. 8. Dyspnea is multifactorial. LV systolic dysfunction secondary to his prior myocardial infarction. Severe mitral regurgitation and at least moderate aortic stenosis on prior echocardiogram would also contribute to development of heart failure. With his atrial fibrillation, there is associated decreased cardiac output. He also has pulmonary hypertension. He has anemia. All of these factors would contribute to his sensation of dyspnea and fatigue. 9. Cardiac enzymes negative for evidence of myocardial injury. RECOMMENDATIONS: 1. Continue intravenous diuretics. Close monitoring of renal function. 2. Potassium supplementation. This has been given today. 3. Continue metoprolol. 4. MARITZA inhibitor and angiotensin receptor blane therapy contraindicated because of his kidney disease. 5. The patient has previously refused surgical intervention for his valvular heart disease. He would obviously be at markedly increased risk for such surgery. 6. Long-term prognosis from a cardiac standpoint is not a good. He is still at full resuscitation status. We will need to be discussed with the patient whether he wants to continue with full resuscitation status. 7. A repeat echocardiogram has been ordered. It has not as yet been performed. This will help update his current left ventricular systolic function as well as the severity of his valvular disease. However, it will not alter the current recommendations and plan. Thank you for asking me to see this patient in cardiology consultation.
--- NOTE | 2016-05-21 16:02 | Palliative Care Consultation ---
Consultation Date of Consultation: May 21, 2016. Requesting Physician: Dr. Alcala Attending Physician: Dr. Bar, Dr. Alcala Reason for Consultation: Goals of care History of Present Illness This 89 year old male patient presented to the ED four days ago with complaints of 11lb weight gain in the past 2 weeks, SOB, CP with exertion, fatigue and abdominal bloating. He was at his PCP's office who advised him to come to the ED. CXR showed cardiomegaly and pulmonary vascular congestion. Patient was admitted with CHF exacerbation, checker in and business services analyst consulted. Echo showed mildly reduced overall left ventricular systolic function, mild left ventricular hypertrophy, biatrial dilatation, severe calcific aortic stenosis, moderate mitral and tricuspid regurgitation, mild aortic regurgitation, moderate pulmonic regurgitation, mild pulmonary hypertension, apical akinesis and an EF of 50-55%. Patient last admitted on February 2016 for CHF exacerbation as well. Patient also c/o two weeks of dysphagia and speech changes. Speech evaluation showed esophageal dysmotility and it's thought that patient may have had a stroke at the time symptoms started. GI consult for the abnormal swallow evaluation, but patient is poor candidate for EGD and has opted for conservative management. Palliative care consulted to establish goals of care. This patient is known to me from previous admission. During last admission, patient was ready to focus more on comfort but was not necessarily ready for hospice and to not come back to hospice for medical treatment. He went home with home health. Today, I met with the patient, his , and Dr. Alcala in the room. We first discussed the dysphagia. After presentation of all options, patient decided against PEG tube or any feeding tube and would like to continue to eat with recommendations for speech despite the risk of aspiration. Dr. Alcala left after that issue was discussed. I discussed further goals of care with the patient. He certainly would like to increase the focus on comfort and his goal is to be at home with his . He had many medical questions and I answered them to the best of my ability. See plan below. As far as symptoms, patient stated, "I actually feel really good. I'm so sky to have no pain." He denied any other complaints of discomfort at this time. Past Medical/Surgical History Medical History: Coronary artery disease. Cardiac catheterization in 2007 s/p PTCA and stent Multi-valvular heart disease. Moderate aortic stenosis, severe mitral and tricuspid regurgitation. Ischemic cardiomyopathy. EF 45%-50%. Chronic atrial fibrillation Sick sinus syndrome s/p PPM DM type 2 Anxiety Depression. BPH Dyslipidemia Glaucoma Meniere's disease Chronic anemia History of pancreatitis Gallbladder disease Skin cancer- squamous cell carcinoma Surgical History: Bilateral cataract Hemorrhoidectomy Inguinal hernia repair Mastoidectomy Tonsillectomy and adenoidectomy Social History Smoking Status: Former Smoker History of Alcohol Use: No Drug Use: none Marital Status: Housing Status: lives with family Occupation Status: retired Review of Systems Constitutional: + fatigue, + weakness ENT: + hearing loss Respiratory: + cough (occasional), + dyspnea on exertion, + shortness of breath , No sputum Cardiac: + edema, No chest pain Abdomen: + problem reported (difficulty swallowing liquids), No nausea, No pain , No vomiting Male : No problem reported Psychiatric: No anxiety, No depression symptoms Allergies Coded Allergies: Adhesives (Verified Allergy, Unknown, "RED RASH AND ITCHES", 05/20/16) Morphine (Verified Adverse Reaction, Mild, headaches, 05/20/16) Medications Current Inpatient Medications Medications (Trade) Dose Ordered Sig/Angus Route Start Time Stop Time Status Last Admin Dose Admin Acetaminophen (Tylenol Tab) 650 mg Q4H PRN PO 05/20/16 18:45 06/19/16 18:44 Zolpidem Tartrate (Ambien Tab) 5 mg HSZ PRN PO 05/20/16 18:45 06/19/16 18:44 Nitroglycerin (Nitrostat Tab) 0.4 mg UD PRN SL 05/20/16 18:45 06/19/16 18:44 Aspirin (Ecotrin Tab) 81 mg QPM PO 05/20/16 21:00 06/19/16 20:59 05/20/16 22:14 81 MG Atorvastatin Calcium (Lipitor Tab) 80 mg HS PO 05/20/16 21:00 06/19/16 20:59 05/20/16 22:14 80 MG Escitalopram Oxalate (Lexapro Tab) 10 mg DAILY PO 05/21/16 09:00 06/20/16 08:59 05/21/16 09:11 10 MG Finasteride (Proscar Tab) 5 mg Q2D@0900 PO 05/21/16 09:00 06/20/16 08:59 05/21/16 09:11 5 MG Latanoprost (Xalatan Oph Soln) 1 drops HS OPB 05/20/16 22:00 06/19/16 21:59 05/20/16 22:16 1 DROPS Lorazepam (Ativan Tab) 0.5 mg BID PO 05/20/16 21:00 06/19/16 20:59 05/21/16 09:20 0.5 MG Meclizine HCl (Antivert Tab) 25 mg Q8 PRN PO 05/20/16 18:45 06/19/16 18:44 Metoprolol Succinate (Toprol Xl Tab) 100 mg QPM PO 05/20/16 21:00 06/19/16 20:59 05/20/16 22:15 100 MG Multivitamins/ Minerals (Multivitamin W/ Minerals Tab) 1 tab DAILY PO 05/21/16 09:00 06/20/16 08:59 05/21/16 09:11 1 TAB Timolol Maleate (Timoptic-Xe 0.5% Oph Soln) 1 drops QAM OPB 05/21/16 09:00 06/20/16 08:59 05/21/16 09:10 1 DROPS Ursodiol (Actigall Cap) 300 mg BID PO 05/20/16 21:00 06/19/16 20:59 05/21/16 09:12 300 MG Miscellaneous Information (Order Awaiting Action) 1 ea QS N/A 05/21/16 00:00 06/20/16 00:00 Cholecalciferol (Vitamin D Tab) 2,000 inter.unit QAM PO 05/21/16 09:00 06/20/16 08:59 05/21/16 09:11 2,000 INTER.UNIT Ondansetron HCl (Zofran Inj) 4 mg Q6H PRN IV 05/20/16 18:45 06/19/16 18:44 Insulin Aspart (novoLOG ASPART) SLIDING SCALE If C... ACHS SC 05/20/16 21:30 06/19/16 21:29 05/20/16 22:17 1 UNITS Glucose (Glucose 40% Gel) UD PRN PO 05/20/16 18:45 06/19/16 18:44 Glucose (Glucose Chew Tab) 1 tabs UD PRN PO 05/20/16 18:45 06/19/16 18:44 Dextrose (Dextrose 50% 50ML Syringe) 50 ml UD PRN IV 05/20/16 18:45 06/19/16 18:44 Glucagon 1 mg 1 mg UD PRN SQ 05/20/16 18:45 06/19/16 18:44 Furosemide/Syringe (Lasix Inj/ Syringe) 4 ml @ 4 mls/min QAM IV 05/21/16 09:00 06/20/16 08:59 05/21/16 10:49 4 MLS/MIN Physical Exam Date Time Temp Pulse Resp B/P Pulse Ox O2 Delivery O2 Flow Rate FiO2 05/21/16 12:00 Room Air 05/21/16 11:56 36.5 69 16 123/70 94 Room Air 05/21/16 08:00 94 Room Air 05/21/16 07:56 36.7 69 16 113/55 94 Room Air 05/21/16 05:09 36.4 77 16 125/70 91 Room Air 05/21/16 04:00 Room Air 05/21/16 00:04 36.7 71 16 112/53 96 Room Air 05/21/16 00:00 Room Air 05/20/16 21:30 36.7 87 18 121/65 97 Room Air 05/20/16 20:27 67 18 120/63 94 Room Air 05/20/16 19:50 Room Air 05/20/16 19:14 66 18 130/66 93 Room Air 05/20/16 17:44 05/20/16 17:42 119/63 05/20/16 16:11 63 05/20/16 16:06 62 General Appearance: no apparent distress, + pertinent finding (chronically ill appearing) Neck: no JVD Respiratory: no respiratory distress, no accessory muscle use, + decreased breath sounds Cardiovascular: regular rate, rhythm, + normal peripheral pulses, + pertinent finding (+1 pitting edema to ankles, much improved per patient and ) Abdomen: normal bowel sounds, non tender, soft Neurologic/Psychiatric: alert, normal mood/affect, oriented x 3 Skin: + pertinent finding (lips are dusky) Laboratory Results Last 24 Hours Test 05/20/16 17:42 05/20/16 19:35 05/20/16 21:54 05/21/16 02:57 Urine Color YELLOW Urine Appearance CLEAR Urine pH 7.5 Urine Specific [place] 1.007 Urine Protein NEG Urine Glucose (UA) NEG Urine Ketones NEG Urine Occult Blood NEG Urine Nitrite NEG Urine Bilirubin NEG Urine Urobilinogen NEG Urine Leukocyte Esterase NEG Total Creatine Kinase 24 U/L 24 U/L Creatine Kinase MB 1.1 ng/ml 1.0 ng/ml Creatine Kinase MB Ratio 4.6 4.2 Troponin I 0.019 ng/ml 0.018 ng/ml Bedside Glucose 177 mg/dl White Blood Count 5.55 K/uL Red Blood Count 3.00 M/uL Hemoglobin 9.6 g/dL Hematocrit 28.9 % Mean Corpuscular Volume 96.3 fL Mean Corpuscular Hemoglobin 32.0 pg Mean Corpuscular Hemoglobin Concent 33.2 g/dl Platelet Count 125 K/uL Mean Platelet Volume 9.0 fL Neutrophils (%) (Auto) 69.9 % Lymphocytes (%) (Auto) 16.0 % Monocytes (%) (Auto) 11.5 % Eosinophils (%) (Auto) 2.0 % Basophils (%) (Auto) 0.4 % Neutrophils # (Auto) 3.88 K/uL Lymphocytes # (Auto) 0.89 K/uL Monocytes # (Auto) 0.64 K/uL Eosinophils # (Auto) 0.11 K/uL Basophils # (Auto) 0.02 K/uL RDW Standard Deviation 46.8 fL RDW Coefficient of Variation 13.3 % Immature Granulocyte % (Auto) 0.2 % Immature Granulocyte # (Auto) 0.01 K/uL Prothrombin Time 11.7 SECONDS Prothromb Time International Ratio 1.1 Activated Partial Thromboplast Time 25.9 SECONDS Partial Thromboplastin Ratio 1.0 Sodium Level 142 mmol/L Potassium Level 3.2 mmol/L Chloride Level 99 mmol/L Carbon Dioxide Level 34 mmol/L Anion Gap 9.0 mmol/L Blood Urea Nitrogen 55 mg/dl Creatinine 2.20 mg/dl Est Creatinine Clear Calc Drug Dose 22.2 ml/min Estimated GFR () 29.7 Estimated GFR (Non- 25.6 BUN/Creatinine Ratio 25.0 Random Glucose 65 mg/dl Calcium Level 9.7 mg/dl Magnesium Level 2.3 mg/dl Total Bilirubin 0.6 mg/dl Direct Bilirubin 0.2 mg/dl Aspartate Amino Transf (AST/SGOT) 9 U/L Alanine Aminotransferase (ALT/SGPT) 16 U/L Alkaline Phosphatase 51 U/L Total Protein 7.0 gm/dl Albumin 3.6 gm/dl Test 05/21/16 07:46 05/21/16 10:36 05/21/16 10:42 05/21/16 11:31 Bedside Glucose 109 mg/dl 198 mg/dl Iron Level 49 mcg/dl Total Iron Binding Capacity 295 mcg/dl Transferrin 250 mg/dl Transferrin % Saturation 14 % % Ferritin 263.9 ng/ml Total Creatine Kinase 24 U/L Creatine Kinase MB 1.1 ng/ml Creatine Kinase MB Ratio 4.6 Troponin I 0.022 ng/ml Assessment & Plan Problem list: Weakness Dyspnea on exertion Dysphagia CHF exacerbation Chronic kidney disease Valvular heart disease Anemia, chronic Goals of care (Z51.5) Palliative care plan: Discussed with Dr. Alcala, patient and his . -No feeding tube. Has chosen to continue comfort feeds despite risk of aspiration -Speech therapy to make recommendations on consistency of foods/liquids -DNR/DNI per patient's wishes -Recommend ordering PT/OT for their input -Defer to cardiology and nephrology for optimal management of CHF/fluid balance -Patient and indicated that if patient gets to the point of needing dialysis, they would likely decline it -Goal is home with home health. Not ready for hospice as of yet Thank you kindly for this consult. I will follow up on Tuesday if patient is still here.
--- NOTE | 2016-05-21 17:56 | ECHOCARDIOGRAM REPORT ---
*NOTICE TO RECEIVING REPUBLICAN AGENCY This information is strictly Confidential and protected under [place] law. [place] law prohibits you from making any further disclosure of this information unless further disclosure is expressly permitted by the written consent of the person to whom it pertains or is authorized by law. A general authorization for the release of medical or other information is not sufficient for this purpose. Hospital accepts no responsibility if the information is made available to any other person, INCLUDING THE PATIENT. Interpretation Summary * Name: KARINA WILKERSON Study Date: 05/21/2016 12:16 PM BP: 125/70 mmHg * Patient Location: .[facility]\S\N286\S\2 HR: 99 * : 1925 (M/d/yyyy) Gender: Male Height: 61 in * Age: 89 yrs Ethnicity: [place] Weight: 169 lb * Ordering Physician: Clyde Millan * Referring Physician: Self, Referred * Performed By: Cynthia Rasmussen RCS * * Reason For Study: CHF * BSA: 1.8 m2 * Mildly reduced overall left ventricular systolic function. * Mild left ventricular hypertrophy. * Biatrial dilatation. * Severe calcific aortic stenosis. * Moderate mitral and tricuspid regurgitation. * Mild aortic regurgitation. * Moderate pulmonic regurgitation. * Mild pulmonary hypertension. * -- Conclusions -- * There is severe calcific aortic valve stenosis. Procedure Details * A complete two-dimensional transthoracic echocardiogram was performed (2D, M-mode, Doppler and color flow Doppler). Left Ventricle * The left ventricle is normal in size. * There is mild concentric left ventricular hypertrophy. * Left ventricular systolic function is mildly reduced. * Ejection Fraction = 50-55%. * There is apical akinesis. Right Ventricle * There is a pacemaker lead in the right ventricle. * The right ventricle is mildly dilated. * The right ventricular systolic function is normal. Atria * The left atrium is severely dilated. * The right atrium is moderately dilated. * No ASD detected; PFO is not assessed. Mitral Valve * Calcified mitral apparatus. * There is moderate mitral regurgitation. Tricuspid Valve * The tricuspid valve is normal. * There is moderate tricuspid regurgitation. * Right ventricular systolic pressure is elevated at 30-40mmHg. Aortic Valve * The aortic valve is trileaflet. * There is severe calcific aortic valve stenosis. * Aortic valve area was calculated at 0.57 cm\S\2 using the continuity equation. * Mild aortic regurgitation. Pulmonic Valve * The pulmonic valve is not well visualized. * There is no pulmonic valvular stenosis. * Moderate pulmonic valvular regurgitation. Great Vessels * The aortic root is normal size. Pericardium/Pleural * There is no pericardial effusion. Great Vessels * Normal inferior vena cava diameter and respiratory variation suggests normal central venous pressure. MMode 2D Measurements and Calculations IVSd 1.2 cm IVSs 1.5 cm LVIDd 4.0 cm LVIDs 3.0 cm LVPWd 1.2 cm LVPWs 1.5 cm IVS/LVPW 0.95 FS 23.9 % EDV(Teich) 68.7 ml ESV(Teich) 35.6 ml EF(Teich) 48.2 % EDV(cubed) 62.5 ml ESV(cubed) 27.6 ml EF(cubed) 55.9 % % IVS thick 27.1 % % LVPW thick 23.8 % LV mass(C)d 163.3 grams LV mass(C)dI 92.9 grams/m\S\2 LV mass(C)s 159.8 grams LV mass(C)sI 90.9 grams/m\S\2 CO(Teich) 2.1 l/min CI(Teich) 1.2 l/min/m\S\2 SV(Teich) 33.1 ml SI(Teich) 18.8 ml/m\S\2 CO(cubed) 2.2 l/min CI(cubed) 1.3 l/min/m\S\2 SV(cubed) 35.0 ml SI(cubed) 19.9 ml/m\S\2 Ao root diam 4.1 cm Ao root area 13.0 cm\S\2 LA dimension 5.8 cm LA/Ao 1.4 LVOT diam 2.2 cm LVOT area 3.6 cm\S\2 LVAd ap4 32.9 cm\S\2 LVLd ap4 8.0 cm EDV(MOD-sp4) 115.0 ml LVAs ap4 19.0 cm\S\2 LVLs ap4 6.7 cm ESV(MOD-sp4) 52.0 ml EF(MOD-sp4) 54.8 % LVAd ap2 33.1 cm\S\2 LVLd ap2 7.7 cm EDV(MOD-sp2) 121.0 ml LVAs ap2 16.3 cm\S\2 LVLs ap2 6.1 cm ESV(MOD-sp2) 38.0 ml EF(MOD-sp2) 68.6 % CO(MOD-sp4) 4.0 l/min CI(MOD-sp4) 2.3 l/min/m\S\2 SV(MOD-sp4) 63.0 ml SI(MOD-sp4) 35.8 ml/m\S\2 CO(MOD-sp2) 5.2 l/min CI(MOD-sp2) 3.0 l/min/m\S\2 SV(MOD-sp2) 83.0 ml SI(MOD-sp2) 47.2 ml/m\S\2 Doppler Measurements and Calculations MV E max leydi 199.0 cm/sec MV P1/2t max leydi 217.2 cm/sec MV P1/2t 91.2 msec MVA(P1/2t) 2.4 cm\S\2 MV dec slope 697.1 cm/sec\S\2 MV dec time 0.29 sec Ao V2 max 428.5 cm/sec Ao max PG 73.5 mmHg Ao max PG (full) 71.7 mmHg Ao V2 mean 292.2 cm/sec Ao mean PG 39.0 mmHg Ao mean PG (full) 38.1 mmHg Ao V2 VTI 95.1 cm TIERRA(I,A) 0.52 cm\S\2 TIERRA(I,D) 0.52 cm\S\2 TIERRA(V,A) 0.57 cm\S\2 TIERRA(V,D) 0.57 cm\S\2 AI max leydi 434.8 cm/sec AI max PG 75.6 mmHg AI dec slope 233.7 cm/sec\S\2 AI P1/2t 544.9 msec LV V1 max PG 1.8 mmHg LV V1 mean PG 0.87 mmHg LV V1 max 66.5 cm/sec LV V1 mean 43.0 cm/sec LV V1 VTI 13.5 cm SV(Ao) 1237.0 ml SI(Ao) 703.4 ml/m\S\2 SV(LVOT) 49.1 ml SI(LVOT) 27.9 ml/m\S\2 PA V2 max 128.3 cm/sec PA max PG 6.7 mmHg PI max leydi 200.2 cm/sec PI max PG 16.1 mmHg PI dec slope 159.0 cm/sec\S\2 PI P1/2t 368.8 msec TR max leydi 270.0 cm/sec
[2016-05-21] MEDS: METOPROLOL SUCC 50MG EXT REL TAB PO SCH (20:06)
[2016-05-21] MEDS: ATORVASTATIN 40 MG TAB PO SCH (20:06)
[2016-05-21] MEDS: LATANOPROST 0.005% OP SOLN 2.5 ML BTL OPB SCH (20:06)
[2016-05-21] MEDS: ASPIRIN 81 MG ECTAB PO SCH (20:07)
[2016-05-21] MEDS ORDERED: FUROSEMIDE INJ 20 MG in SYRINGE 0 ML IV ONE (21:30)
[2016-05-21] MEDS: POTASSIUM CHLR 10 MEQ / WTR 10 MEQ in PREMIXED WATER 100 ML IV SCH ×2 (21:40→23:41)
--- NOTE | 2016-05-21 22:35 | Progress Note ---
Progress Note Mr Alcaraz and his were seen at multiple points throughout the day. I discussed the video swallow findings with Teri, Dr Loo, Dr Julien and Dr Bar. Discussed initially with Dr Loo without full Speech report and thought to be oropharyngeal problem ?stroke (high risk due to atrial fibrillation without anticoagulation) Discussed then with the patient with his and Monisha (palliative care) and decided he would like to start eating As per speech video swallow - bolus clears the pharynx, passes completely through the PES, gets to upper/mid-esophagus then gets regurgitated. Discussed with Dr Julien since she is covering for Dr Loo this weekend and likely a high risk patient for EGD which I agree he will never be able to lie flat even with optimal fluid status. Discussed with Dr Bar and patient. Plan is to keep patient NPO except ice chips as per speech recommendations overnight. Will switch metoprolol PO to IV and hold other oral medications. Given the risk and unlikely benefit if this is thought to be functional or external pressure unless Gastroenterology feel he is likely to benefit, ie. possible stricture I would recommend risk feeding him tomorrow with speech input on diet ie. with thickened fluids. If he was to have an EGD for Tuesday consider NG tube for nutrition. Appreciate input from all the above. I reviewed the films from the video swallow in full and in conjunction with a severely dilated atrium on echo I feel this is the most likely explanation of his regurgitation. Hopefully with some diuresis this may improve a small amount but based on duration of symptoms this is likely something he will have to live with. We will keep him NPO except ice chips until seen by GI tomorrow for Dr Julien's opinion. If no EGD option is selected recommend change diet to thickened fluids as above. PLAN - NPO with ice chips - GI consult - metoprolol XL 100 mg daily, switch to metoprolol Q6H 5 mg IV (can up titrate as necessary) (Dmitry Alcala MD) Resident Tracking Resident Involvement: Resident Care Provided Care Provided: Adult [facility] (Dmitry Alcala MD)
[2016-05-21] MEDS: METOPROLOL TARTRATE 1 MG/ML VIAL IV. SCH (23:42)
[2016-05-22] VITALS (10 sets, daily range): BP systolic 100–130; BP diastolic 55–73; PULSE 67–94; TEMP 36.4–36.9; O2SAT 94–98
[2016-05-22] MEDS: METOPROLOL TARTRATE 1 MG/ML VIAL IV. SCH ×3 (06:16→17:11)
[2016-05-22 06:33] LABS: BASO % 0.5 %; BASO ABS # 0.03 K/uL (0-0.2); COMPLETE YES; EOS % 2.4 %; HEMATOCRIT 29.5 % (42-52); IG% 0.2 %; LYMPH ABS # 0.95 K/uL (1.2-3.4); MEAN CELL VOLUME 92.8 fL (80-100); MEAN CORPUSCULAR HEMOGLOBIN 32.1 pg (25-34); MEAN CORPUSCULAR HGB CONC 34.6 g/dl (32-36); MEAN PLATELET VOLUME 9.2 fL (7.4-10.4); MONO % 12.2 %; NEUT % 69.7 %; PLATELET COUNT 127 K/uL (130-400); RED BLOOD COUNT 3.18 M/uL (4.7-6.1); WHITE BLOOD COUNT 6.32 K/uL (4.8-10.8)
[2016-05-22 07:04] LABS: BUN/CREATININE RATIO 25.5 (10-20); CALCIUM 10.6 mg/dl (8.5-10.1); CREATININE 2.1 mg/dl (0.60-1.40); MAGNESIUM 2.3 mg/dl (1.8-2.4); POTASSIUM 3.4 mmol/L (3.5-5.1)
[2016-05-22] MEDS: INSULIN ASPART 100 UNITS/ML 3 ML PEN SC SCH ×4 (08:12→20:46)
[2016-05-22] MEDS: CEROVITE ADV FORMULA TAB PO SCH (08:13)
[2016-05-22] MEDS: TIMOLOL GFS 0.5% OPH SOLN 74 DROPS/5 ML BTL OPB SCH (08:15)
[2016-05-22] MEDS: LANSOPRAZOLE SOLUTAB 30 MG PO SCH (08:25)
[2016-05-22] MEDS: POTASSIUM CHLR 10 MEQ / WTR 10 MEQ in PREMIXED WATER 100 ML IV SCH ×2 (09:31→12:38)
[2016-05-22] MEDS: FUROSEMIDE INJ 40 MG in SYRINGE 0 ML IV SCH (11:41)
[2016-05-22] MEDS ORDERED: NURSING VERBAL MED ORDER ONE ×2 (11:45)
[2016-05-22] MEDS ORDERED: IRON SUCROSE INJ 200 MG in SODIUM CHLORIDE 0.9% 100ML 100 ML IV SCH (12:00)
[2016-05-22] MEDS ORDERED: TORSEMIDE 20 MG TAB PO ONE (12:15)
--- NOTE | 2016-05-22 12:16 | Nephrology Progress Note ---
Nephrology Progress Note Date of Service May 22, 2016. Chief Complaint Follow-up for CKD, diuretic resistant volume overload. Gilles Ly was seen and examined in his room this morning with his at bedside. He has been overall feeling better shortness of breath improved. He has been responding to diuretics, has been net negative more than 1 L overnight. Blood pressure has been stable, renal function remained stable with creatinine around 2. Review of Systems A complete review of systems was performed. Pertinent positives are noted above. All other systems are negative. Vital Signs Last 8 Hrs Date Time Temp Pulse Resp B/P Pulse Ox O2 Delivery O2 Flow Rate FiO2 05/22/16 08:00 96 Room Air 05/22/16 07:21 36.9 68 18 100/55 96 Room Air 05/22/16 06:16 73 126/73 05/22/16 06:14 73 126/73 05/22/16 04:45 94 111/69 05/22/16 04:00 Room Air I & O 24-Hour Column 05/22/16 08:00 Intake Total 550 ml Output Total 3115 ml Balance -2565 ml Last Recorded Weight Weight (Kilograms): 68.700 Physical Exam GENERAL: Elderly male, AAA x 3, pleasant, ill-appearing, not in any distress. NECK: Supple, JVD + RESPIRATORY: Normal breathing efforts, no accessory muscle use, clear to auscultation bilaterally CARDIOVASCULAR: S1, S2 normal, rate rhythm regular. EXTREMITY: No lower extremity edema NEURO: speech fluent. 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 Remote h/o tobacco use Laboratory Results Past 24 Hours 05/22/16 06:06 Red Blood Count 3.18, Mean Corpuscular Volume 92.8, Mean Corpuscular Hemoglobin 32.1, Mean Corpuscular Hemoglobin Concent 34.6, Mean Platelet Volume 9.2, Neutrophils (%) (Auto) 69.7, Lymphocytes (%) (Auto) 15.0, Monocytes (%) (Auto) 12.2, Eosinophils (%) (Auto) 2.4, Basophils (%) (Auto) 0.5, Neutrophils # (Auto ) 4.41, Lymphocytes # (Auto) 0.95, Monocytes # (Auto) 0.77, Eosinophils # (Auto ) 0.15, Basophils # (Auto) 0.03 05/22/16 06:06 Test 05/21/16 10:36 05/21/16 10:42 05/21/16 11:31 05/21/16 16:43 Iron Level 49 mcg/dl (35-175) Total Iron Binding Capacity 295 mcg/dl (250-450) Transferrin 250 mg/dl (200-360) Transferrin % Saturation 14 % (20-50) % (20-50) Ferritin 263.9 ng/ml (8.0-388.0) Total Creatine Kinase 24 U/L (39-308) Creatine Kinase MB 1.1 ng/ml (0.5-3.6) Creatine Kinase MB Ratio 4.6 (0-3.0) Troponin I 0.022 ng/ml (0-0.045) Bedside Glucose 198 mg/dl (70-99) 116 mg/dl (70-99) Test 05/21/16 20:44 05/22/16 06:06 05/22/16 07:43 Bedside Glucose 123 mg/dl (70-99) 111 mg/dl (70-99) White Blood Count 6.32 K/uL (4.8-10.8) Red Blood Count 3.18 M/uL (4.7-6.1) Hemoglobin 10.2 g/dL (14.0-18.0) Hematocrit 29.5 % (42-52) Mean Corpuscular Volume 92.8 fL (80-100) Mean Corpuscular Hemoglobin 32.1 pg (25-34) Mean Corpuscular Hemoglobin Concent 34.6 g/dl (32-36) Platelet Count 127 K/uL (130-400) Mean Platelet Volume 9.2 fL (7.4-10.4) Neutrophils (%) (Auto) 69.7 % Lymphocytes (%) (Auto) 15.0 % Monocytes (%) (Auto) 12.2 % Eosinophils (%) (Auto) 2.4 % Basophils (%) (Auto) 0.5 % Neutrophils # (Auto) 4.41 K/uL (1.4-6.5) Lymphocytes # (Auto) 0.95 K/uL (1.2-3.4) Monocytes # (Auto) 0.77 K/uL (0.11-0.59) Eosinophils # (Auto) 0.15 K/uL (0-0.5) Basophils # (Auto) 0.03 K/uL (0-0.2) RDW Standard Deviation 44.3 fL (36.4-46.3) RDW Coefficient of Variation 13.0 % (11.5-14.5) Immature Granulocyte % (Auto) 0.2 % Immature Granulocyte # (Auto) 0.01 K/uL (0.00-0.02) Anion Gap 12.0 mmol/L (3-11) Est Creatinine Clear Calc Drug Dose 21.5 ml/min Estimated GFR () 31.4 Estimated GFR (Non- 27.1 BUN/Creatinine Ratio 25.5 (10-20) Calcium Level 10.6 mg/dl (8.5-10.1) Magnesium Level 2.3 mg/dl (1.8-2.4) Total Bilirubin 0.9 mg/dl (0.2-1) Direct Bilirubin 0.3 mg/dl (0-0.2) Aspartate Amino Transf (AST/SGOT) 10 U/L (15-37) Alanine Aminotransferase (ALT/SGPT) 15 U/L (12-78) Alkaline Phosphatase 55 U/L (45-117) Total Protein 7.1 gm/dl (6.4-8.2) Albumin 3.6 gm/dl (3.4-5.0) Allergies Coded Allergies: Adhesives (Verified Allergy, Unknown, "RED RASH AND ITCHES", 05/20/16) Morphine (Verified Adverse Reaction, Mild, headaches, 05/20/16) Medications Current Inpatient Medications Medications (Trade) Dose Ordered Sig/Angus Route Start Time Stop Time Status Last Admin Dose Admin Acetaminophen (Tylenol Tab) 650 mg Q4H PRN PO 05/20/16 18:45 06/19/16 18:44 Future Hold Nitroglycerin (Nitrostat Tab) 0.4 mg UD PRN SL 05/20/16 18:45 06/19/16 18:44 Aspirin (Ecotrin Tab) 81 mg QPM PO 05/20/16 21:00 06/19/16 20:59 Future Hold 05/21/16 20:07 81 MG Atorvastatin Calcium (Lipitor Tab) 80 mg HS PO 05/20/16 21:00 06/19/16 20:59 Future Hold 05/21/16 20:06 80 MG Escitalopram Oxalate (Lexapro Tab) 10 mg DAILY PO 05/21/16 09:00 06/20/16 08:59 Future Hold 05/21/16 09:11 10 MG Finasteride (Proscar Tab) 5 mg Q2D@0900 PO 05/21/16 09:00 06/20/16 08:59 Future Hold 05/21/16 09:11 5 MG Latanoprost (Xalatan Oph Soln) 1 drops HS OPB 05/20/16 22:00 06/19/16 21:59 05/21/16 20:06 1 DROPS Lorazepam (Ativan Tab) 0.5 mg BID PO 05/20/16 21:00 06/19/16 20:59 Future Hold 05/21/16 20:06 0.5 MG Meclizine HCl (Antivert Tab) 25 mg Q8 PRN PO 05/20/16 18:45 06/19/16 18:44 Future Hold Multivitamins/ Minerals (Multivitamin W/ Minerals Tab) 1 tab DAILY PO 05/21/16 09:00 06/20/16 08:59 05/22/16 08:13 1 TAB Timolol Maleate (Timoptic-Xe 0.5% Oph Soln) 1 drops QAM OPB 05/21/16 09:00 06/20/16 08:59 05/22/16 08:15 1 DROPS Ursodiol (Actigall Cap) 300 mg BID PO 05/20/16 21:00 06/19/16 20:59 Future Hold 05/21/16 20:06 300 MG Miscellaneous Information (Order Awaiting Action) 1 ea QS N/A 05/21/16 00:00 06/20/16 00:00 Cholecalciferol (Vitamin D Tab) 2,000 inter.unit QAM PO 05/21/16 09:00 06/20/16 08:59 Future Hold 05/21/16 09:11 2,000 INTER.UNIT Ondansetron HCl (Zofran Inj) 4 mg Q6H PRN IV 05/20/16 18:45 06/19/16 18:44 Insulin Aspart (novoLOG ASPART) SLIDING SCALE If C... ACHS SC 05/20/16 21:30 06/20/16 21:29 05/20/16 22:17 1 UNITS Glucose (Glucose 40% Gel) UD PRN PO 05/20/16 18:45 06/19/16 18:44 Glucose (Glucose Chew Tab) 1 tabs UD PRN PO 05/20/16 18:45 06/19/16 18:44 Dextrose (Dextrose 50% 50ML Syringe) 50 ml UD PRN IV 05/20/16 18:45 06/19/16 18:44 Glucagon 1 mg 1 mg UD PRN SQ 05/20/16 18:45 06/19/16 18:44 Furosemide/Syringe (Lasix Inj/ Syringe) 4 ml @ 4 mls/min QAM IV 05/21/16 09:00 06/20/16 08:59 05/21/16 10:49 4 MLS/MIN Metoprolol Tartrate (Lopressor Iv) 5 mg Q6 IV. 05/22/16 00:00 06/21/16 00:00 05/22/16 06:16 5 MG Lansoprazole 30 mg 30 mg QAM PO 05/22/16 09:00 06/21/16 08:59 05/22/16 08:25 30 MG Potassium Chloride/Prmx (Kcl 10 Meq / Wtr/Premixed Water) 100 ml @ 100 mls/hr Q1H IV 05/22/16 09:00 05/22/16 10:59 05/22/16 09:31 100 MLS/HR Impression (1) Dyspnea on exertion (2) Orthopnea (3) Valvular heart disease (4) Chronic kidney disease, stage 4 (severe) (5) Anemia Patient admitted w/ 11 lb weight gain, progressive dyspnea on exertion and orthopnea. He has severe valvular heart disease, anemia and stable stage IV CKD. Recommendations VALVULAR HEART DISEASE: -- Dyspnea is likely related to LV dysfunction, and pulmonary HTN -- will change to torsemide 40 mg twice a day. CHRONIC KIDNEY DISEASE: -- Baseline creatinine has been 2.1 -- Poor dialysis candidate due to valvular heart disease -- Recommend supplement to maintain K > 4.0, Mg > 1.8 -- Monitor serial PRP ANEMIA: -- with iron deficiency previously received IV iron --Check iron study and if still low will replete iron otherwise will start on MARLON # Aspiration risk: --pt decided not to have EGD for further eval or feeding tube which seems to reasonable considering his history of advanced heart disease including severe , moderate mitral and tricuspid regurgitation and right-sided heart failure. -- Will resume regular diet Will follow
--- NOTE | 2016-05-22 14:51 | Gastrointestinal Consultation ---
Gastrointestinal Consultation Date of Consultation: May 22, 2016 Attending Physician: Dr. Bar Consulting Physician: Dr. Julien Reason for Consultation: dysphagia; abnormal video swallow eval History of Present Illness Patient is a 89 year old male with significant severe valvular heart disease ( has refused surgical repair in the past) as well as CKD admitted with cute on chronic CHF noted to have difficulty with swallowing (mainly liquids) over the last 2 weeks. A video swallow was done and he was noted to have regurgitation of thin liquids and pudding consistency raising suspicion for esophageal dysmotility. Patient reports rare difficulty with solids. Patient has been evaluated by cardiology as well as internal medicine and is a very high risk for any sedation or procedure. He was also seen by palliative medicine and decision has been made to avoid any unnecessary procedures and advance diet. Patient would not want a PEG. Past Medical/Surgical History Medical Problems: (1) Bleeding gums Status: Acute (2) Exertional chest pain Status: Acute (3) Palpitations Status: Acute (4) Pulmonary edema Status: Acute (5) SOB (shortness of breath) Status: Acute Past Medical History: as noted in HPI Family History Cancer Diabetes mellitus FH: heart disease Hypertension non-contributory Social History Smoking Status: Former Smoker Alcohol Use: none Drug Use: none Marital Status: Housing Status: lives with significant other Occupation Status: retired Allergies Coded Allergies: Adhesives (Verified Allergy, Unknown, "RED RASH AND ITCHES", 05/20/16) Morphine (Verified Adverse Reaction, Mild, headaches, 05/20/16) Current Medications Home Meds and Scripts Medications Dose Route/Sig Max Daily Dose Days Date Category Dose Instructions Toprol-Xl (Metoprolol Succinate) 100 Mg Tabcr 100 Mg PO QPM 05/20/16 Reported Rocaltrol Cap (Calcitriol) 0.25 Mcg Cap 0.25 Mcg PO 3XWK 02/16/16 Reported Vitamin D3 (Cholecalciferol) 2,000 Unit Cap 1 Cap PO DAILY 30 02/16/16 Reported Proscar (Finasteride) 5 Mg Tab 5 Mg PO Q2D 02/16/16 Reported Boost (Nutritional Supplements) 1 Liq Liq 1 Can PO BID 02/07/16 Rx Efudex (Fluorouracil (Topical)) 5 % Cre 1 Appln TOP BID 14 02/02/16 Reported Glimepiride 2 Mg Tab 0.5 Tab PO DAILY 30 02/02/16 Reported Zofran (Ondansetron HCl) 4 Mg Tab 4 Mg PO PRN PRN 06/01/14 Reported Meclizine Hcl 25 Mg Tab 1 Tab PO Q8 PRN 05/02/14 Reported Lexapro (Escitalopram Oxalate) 20 Mg Tab 10 Mg PO DAILY 05/02/14 Reported Torsemide 20 Mg Tab 20-30 Mg PO DAILY 12/03/13 Reported MAY TAKE 1 AND 1/2 TAB FOR WEIGHT GAIN. Ocuvite (Multiple Vitamins W/ Minerals) 1 Tab Tab 1 Tab PO DAILY 12/03/13 Reported Xalatan 0.005% Oph (Latanoprost) Soln 1 Drop OPB HS 12/03/13 Reported Ecotrin Or Generic (Aspirin) 81 Mg Tab 81 Mg PO QPM 08/20/11 Reported Actigall * (Ursodiol) 300 Mg Cap 300 Mg PO BID 02/16/11 Reported Lipitor (Atorvastatin Calcium) 80 Mg Tab 80 Mg PO DHS 09/06/08 Reported Ativan * (Lorazepam) 0.5 Mg Tab 0.5 Mg PO BID 09/06/08 Reported Timoptic-Xe 0.5% Oph (Timolol Maleate) Soln 1 Drop OPB QAM 09/06/08 Reported Review of Systems 12 systems reviewed and negative except as noted Physical Exam Date Time Temp Pulse Resp B/P Pulse Ox O2 Delivery O2 Flow Rate FiO2 05/22/16 12:37 82 130/71 05/22/16 12:23 36.4 82 18 130/71 94 Room Air 05/22/16 12:00 94 Room Air 05/22/16 08:00 96 Room Air 05/22/16 07:21 36.9 68 18 100/55 96 Room Air 05/22/16 06:16 73 126/73 05/22/16 06:14 73 126/73 05/22/16 04:45 94 111/69 05/22/16 04:00 Room Air 05/21/16 23:52 Room Air 05/21/16 23:42 36.9 72 18 129/72 96 Room Air 05/21/16 23:42 72 129/72 05/21/16 20:00 Room Air 05/21/16 19:47 36.7 78 16 125/73 97 Room Air 05/21/16 16:00 Room Air 05/21/16 15:22 36.7 74 17 135/75 94 Room Air General Appearance: WD/WN Eyes: normal inspection ENT: normal ENT inspection, hearing grossly normal, pharynx normal Neck: supple Respiratory/Chest: chest non-tender, no respiratory distress, + decreased breath sounds Cardiovascular: + irregularly irregular Abdomen: normal bowel sounds, non tender, soft Extremities: normal range of motion, non-tender 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, no motor/sensory deficits Skin: normal color, no jaundice, warm/dry, no rash Laboratory Results Last 24 Hours Test 05/21/16 16:43 05/21/16 20:44 05/22/16 06:06 05/22/16 07:43 Bedside Glucose 116 mg/dl 123 mg/dl 111 mg/dl White Blood Count 6.32 K/uL Red Blood Count 3.18 M/uL Hemoglobin 10.2 g/dL Hematocrit 29.5 % Mean Corpuscular Volume 92.8 fL Mean Corpuscular Hemoglobin 32.1 pg Mean Corpuscular Hemoglobin Concent 34.6 g/dl Platelet Count 127 K/uL Mean Platelet Volume 9.2 fL Neutrophils (%) (Auto) 69.7 % Lymphocytes (%) (Auto) 15.0 % Monocytes (%) (Auto) 12.2 % Eosinophils (%) (Auto) 2.4 % Basophils (%) (Auto) 0.5 % Neutrophils # (Auto) 4.41 K/uL Lymphocytes # (Auto) 0.95 K/uL Monocytes # (Auto) 0.77 K/uL Eosinophils # (Auto) 0.15 K/uL Basophils # (Auto) 0.03 K/uL RDW Standard Deviation 44.3 fL RDW Coefficient of Variation 13.0 % Immature Granulocyte % (Auto) 0.2 % Immature Granulocyte # (Auto) 0.01 K/uL Sodium Level 140 mmol/L Potassium Level 3.4 mmol/L Chloride Level 99 mmol/L Carbon Dioxide Level 29 mmol/L Anion Gap 12.0 mmol/L Blood Urea Nitrogen 54 mg/dl Creatinine 2.10 mg/dl Est Creatinine Clear Calc Drug Dose 21.5 ml/min Estimated GFR () 31.4 Estimated GFR (Non- 27.1 BUN/Creatinine Ratio 25.5 Random Glucose 110 mg/dl Calcium Level 10.6 mg/dl Magnesium Level 2.3 mg/dl Total Bilirubin 0.9 mg/dl Direct Bilirubin 0.3 mg/dl Aspartate Amino Transf (AST/SGOT) 10 U/L Alanine Aminotransferase (ALT/SGPT) 15 U/L Alkaline Phosphatase 55 U/L Total Protein 7.1 gm/dl Albumin 3.6 gm/dl Test 05/22/16 11:44 Bedside Glucose 110 mg/dl Impression Patient is a 89 year old male with multiple significant co-morbidities admitted with acute on chronic valvular heart failure noted to have recent problems with swallowing liquids. Suspect he may have had a neurologic event which is contributing to his dysphagia +/- underlying esophageal dysmotility. Doing an EGD will not improve that and he is very high risk for sedation. Plan Conservative management. Speech therapy to work with swallowing instruction and exercises. Please call with questions.
[2016-05-22] MEDS: LATANOPROST 0.005% OP SOLN 2.5 ML BTL OPB SCH (20:46)
[2016-05-22] MEDS: TORSEMIDE 20 MG TAB PO SCH (20:46)
--- NOTE | 2016-05-22 21:03 | Progress Note ---
Subjective Date of Service: May 22, 2016. Subjective Pt evaluation today including: conversation w/ patient, conversation w/ family ( at bedside), physical exam, chart review, lab review, review of studies ( video swallow), conversation w/ information resource consultant (cardiology, nephrology), review of inpatient medication list Pain: denies chest pain, abd pain PO Intake: diet resumed; continues w/ dysphagia Voiding: no voiding problems tele with paced rhythm patient "feels so much better" with respect to his breathing he took a walk w/ his and he had little dyspnea, if any; just fatigue dysphagia continues but +/- slightly better patient spoke with palliative care nurse yesterday but is not ready for hospice he wishes to continue being a DNR, however, and he understands his overall poor prognosis Problem List Medical Problems: (1) Bleeding gums Status: Acute (2) Exertional chest pain Status: Acute (3) Palpitations Status: Acute (4) Pulmonary edema Status: Acute (5) SOB (shortness of breath) Status: Acute Review of Systems Constitutional: No fever Respiratory: No cough, No dyspnea at rest, No sputum Cardiac: No chest pain, No orthopnea Abdomen: No pain Objective Vital Signs Date Time Temp Pulse Resp B/P Pulse Ox O2 Delivery O2 Flow Rate FiO2 05/22/16 20:00 Room Air 05/22/16 19:47 36.6 67 20 114/67 96 Room Air 05/22/16 17:11 72 119/72 05/22/16 16:00 Room Air 05/22/16 15:34 36.5 72 14 119/72 97 Room Air 05/22/16 12:37 82 130/71 05/22/16 12:23 36.4 82 18 130/71 94 Room Air 05/22/16 12:00 94 Room Air 05/22/16 08:00 96 Room Air 05/22/16 07:21 36.9 68 18 100/55 96 Room Air 05/22/16 06:16 73 126/73 05/22/16 06:14 73 126/73 05/22/16 04:45 94 111/69 05/22/16 04:00 Room Air 05/21/16 23:52 Room Air 05/21/16 23:42 36.9 72 18 129/72 96 Room Air 05/21/16 23:42 72 129/72 Physical Exam General Appearance: no apparent distress ENT: + pertinent finding (MMM) Neck: + JVD Respiratory/Chest: lungs clear, no respiratory distress, no accessory muscle use Cardiovascular: regular rate, rhythm, no gallop, + systolic murmur (3/6 holosystolic murmur RUSB; 2-3/6 holosystolic murmur LSB) Abdomen: normal bowel sounds, non tender, soft, no organomegaly Extremities: no pedal edema Neurologic/Psychiatric: no motor/sensory deficits, alert, oriented x 3 Laboratory Results Last 24 Hours Test 05/22/16 06:06 05/22/16 07:43 05/22/16 11:44 05/22/16 16:37 White Blood Count 6.32 K/uL Red Blood Count 3.18 M/uL Hemoglobin 10.2 g/dL Hematocrit 29.5 % Mean Corpuscular Volume 92.8 fL Mean Corpuscular Hemoglobin 32.1 pg Mean Corpuscular Hemoglobin Concent 34.6 g/dl Platelet Count 127 K/uL Mean Platelet Volume 9.2 fL Neutrophils (%) (Auto) 69.7 % Lymphocytes (%) (Auto) 15.0 % Monocytes (%) (Auto) 12.2 % Eosinophils (%) (Auto) 2.4 % Basophils (%) (Auto) 0.5 % Neutrophils # (Auto) 4.41 K/uL Lymphocytes # (Auto) 0.95 K/uL Monocytes # (Auto) 0.77 K/uL Eosinophils # (Auto) 0.15 K/uL Basophils # (Auto) 0.03 K/uL RDW Standard Deviation 44.3 fL RDW Coefficient of Variation 13.0 % Immature Granulocyte % (Auto) 0.2 % Immature Granulocyte # (Auto) 0.01 K/uL Sodium Level 140 mmol/L Potassium Level 3.4 mmol/L Chloride Level 99 mmol/L Carbon Dioxide Level 29 mmol/L Anion Gap 12.0 mmol/L Blood Urea Nitrogen 54 mg/dl Creatinine 2.10 mg/dl Est Creatinine Clear Calc Drug Dose 21.5 ml/min Estimated GFR () 31.4 Estimated GFR (Non- 27.1 BUN/Creatinine Ratio 25.5 Random Glucose 110 mg/dl Calcium Level 10.6 mg/dl Magnesium Level 2.3 mg/dl Total Bilirubin 0.9 mg/dl Direct Bilirubin 0.3 mg/dl Aspartate Amino Transf (AST/SGOT) 10 U/L Alanine Aminotransferase (ALT/SGPT) 15 U/L Alkaline Phosphatase 55 U/L Total Protein 7.1 gm/dl Albumin 3.6 gm/dl Bedside Glucose 111 mg/dl 110 mg/dl 131 mg/dl Test 05/22/16 20:28 Bedside Glucose 154 mg/dl Assessment and Plan 89yo male: 1. acute/chronic systolic CHF - acute component resolved. Transition to po diuretics. Cont BB. Weight is at baseline. MARITZA/ARB contraindicated due to CKD. 2. severe dysphagia - after speech and GI consultations the exact etiology of this relatively new issue is unknown. Stroke vs extrinsic compression vs other. He does not wish to pursue EGD. Thus, will allow "palliative eating". Diet resumed. Modify the diet if significant difficulties occur. Maintain on PPI. 3. CKD stage 4 - creatinine at baseline. 4. severe - noted. 5. hypokalemia - replace, repeat BMP am. 6. Chronic atrial fibrillation with tachy/fabrizio s/p pacemaker placement - not for anticoagulation as per patient choice after epistaxis - rate controlled with metoprolol 7. CAD - asa, statin, BB; change latter from IV to PO 8. depression - lexapro 9. T2DM - control adequate. Cont novolog SSI 10. BPH - finasteride PT, OT evals to ensure safe transition to home updated anticipate d/c tomorrow if stable Discharge planning: home
[2016-05-22] MEDS: METOPROLOL SUCC 50MG EXT REL TAB PO SCH (22:11)
[2016-05-23] VITALS (8 sets, daily range): BP systolic 91–119; BP diastolic 44–73; PULSE 56–84; TEMP 36.4–36.7; O2SAT 94–98
[2016-05-23 07:04] LABS: BUN/CREATININE RATIO 23.4 (10-20); CALCIUM 10.2 mg/dl (8.5-10.1); CREATININE 2.5 mg/dl (0.60-1.40); POTASSIUM 3.5 mmol/L (3.5-5.1)
[2016-05-23] MEDS: INSULIN ASPART 100 UNITS/ML 3 ML PEN SC SCH ×4 (08:17→21:00)
[2016-05-23] MEDS: CEROVITE ADV FORMULA TAB PO SCH (08:18)
[2016-05-23] MEDS: TIMOLOL GFS 0.5% OPH SOLN 74 DROPS/5 ML BTL OPB SCH (08:18)
[2016-05-23] MEDS: LANSOPRAZOLE SOLUTAB 30 MG PO SCH (08:19)
[2016-05-23] MEDS: TORSEMIDE 20 MG TAB PO SCH ×2 (08:20→21:16)
[2016-05-23] MEDS: FINASTERIDE 5 MG TAB PO SCH (09:00)
[2016-05-23] MEDS: ESCITALOPRAM OXALATE 10 MG TAB PO SCH (09:00)
--- NOTE | 2016-05-23 12:16 | Nephrology Progress Note ---
Nephrology Progress Note Date of Service May 23, 2016. Chief Complaint Follow-up for CKD, diuretic resistant volume overload. Gilles Ly was seen and examined in his room this morning with his at bedside. He has been overall feeling better shortness of breath improved. Complain some discomfort in epigastric area but denies any chest pain. He has been responding to diuretics, has been net negative more than 1.2 L overnight on torsemide 40 milligram twice a day Blood pressure has been stable, renal function worsened to creatinine 2.5 other electrolyte acceptable. Review of Systems A complete review of systems was performed. Pertinent positives are noted above. All other systems are negative. Vital Signs Last 8 Hrs Date Time Temp Pulse Resp B/P Pulse Ox O2 Delivery O2 Flow Rate FiO2 05/23/16 07:54 36.6 68 18 113/70 95 Room Air 05/23/16 05:06 36.6 83 20 104/64 96 Room Air 05/23/16 04:00 Room Air I & O 24-Hour Column 05/23/16 08:00 Intake Total 929 ml Output Total 1125 ml Balance -196 ml Last Recorded Weight Weight (Kilograms): 69.500 Physical Exam GENERAL: Elderly male, AAA x 3, pleasant, ill-appearing, not in any distress. NECK: Supple, no JVD. RESPIRATORY: Normal breathing efforts, no accessory muscle use, clear to auscultation bilaterally, no wheezes or rales. CARDIOVASCULAR: S1, S2 normal, rate rhythm regular. EXTREMITY: No lower extremity edema NEURO: speech fluent. 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 Remote h/o tobacco use Laboratory Results Past 24 Hours 05/23/16 06:09 Test 05/22/16 11:44 05/22/16 16:37 05/22/16 20:28 05/23/16 06:09 Bedside Glucose 110 mg/dl (70-99) 131 mg/dl (70-99) 154 mg/dl (70-99) Anion Gap 9.0 mmol/L (3-11) Est Creatinine Clear Calc Drug Dose 18.1 ml/min Estimated GFR () 25.4 Estimated GFR (Non- 21.9 BUN/Creatinine Ratio 23.4 (10-20) Calcium Level 10.2 mg/dl (8.5-10.1) Test 05/23/16 07:27 Bedside Glucose 117 mg/dl (70-99) Allergies Coded Allergies: Adhesives (Verified Allergy, Unknown, "RED RASH AND ITCHES", 05/20/16) Morphine (Verified Adverse Reaction, Mild, headaches, 05/20/16) Medications Current Inpatient Medications Medications (Trade) Dose Ordered Sig/Angus Route Start Time Stop Time Status Last Admin Dose Admin Acetaminophen (Tylenol Tab) 650 mg Q4H PRN PO 05/20/16 18:45 06/19/16 18:44 Future Hold Nitroglycerin (Nitrostat Tab) 0.4 mg UD PRN SL 05/20/16 18:45 06/19/16 18:44 Aspirin (Ecotrin Tab) 81 mg QPM PO 05/20/16 21:00 06/19/16 20:59 Future Hold 05/21/16 20:07 81 MG Atorvastatin Calcium (Lipitor Tab) 80 mg HS PO 05/20/16 21:00 06/19/16 20:59 Future Hold 05/21/16 20:06 80 MG Escitalopram Oxalate (Lexapro Tab) 10 mg DAILY PO 05/21/16 09:00 06/20/16 08:59 Future hold 05/21/16 09:11 10 MG Finasteride (Proscar Tab) 5 mg Q2D@0900 PO 05/21/16 09:00 06/20/16 08:59 Future hold 05/21/16 09:11 5 MG Latanoprost (Xalatan Oph Soln) 1 drops HS OPB 05/20/16 22:00 06/19/16 21:59 05/22/16 20:46 1 DROPS Lorazepam (Ativan Tab) 0.5 mg BID PO 05/20/16 21:00 06/19/16 20:59 Future Hold 05/21/16 20:06 0.5 MG Meclizine HCl (Antivert Tab) 25 mg Q8 PRN PO 05/20/16 18:45 18 18:44 Future Hold Multivitamins/ Minerals (Multivitamin W/ Minerals Tab) 1 tab DAILY PO 05/21/16 09:00 06/20/16 08:59 2/19/17 08:18 1 TAB Timolol Maleate (Timoptic-Xe 0.5% Oph Soln) 1 drops QAM OPB 05/21/16 09:00 06/20/16 08:59 05/23/16 08:18 1 DROPS Ursodiol (Actigall Cap) 300 mg BID PO 05/20/16 21:00 06/19/16 20:59 Future Hold 05/21/16 20:06 300 MG Miscellaneous Information (Order Awaiting Action) 1 ea QS N/A 05/21/16 00:00 06/20/16 00:00 Cholecalciferol (Vitamin D Tab) 2,000 inter.unit QAM PO 05/21/16 09:00 06/20/16 08:59 Future Hold 05/21/16 09:11 2,000 INTER.UNIT Ondansetron HCl (Zofran Inj) 4 mg Q6H PRN IV 05/20/16 18:45 06/19/16 18:44 Insulin Aspart (novoLOG ASPART) SLIDING SCALE If C... ACHS SC 05/20/16 21:30 06/20/16 21:29 05/20/16 22:17 1 UNITS Glucose (Glucose 40% Gel) UD PRN PO 05/20/16 18:45 06/19/16 18:44 Glucose (Glucose Chew Tab) 1 tabs UD PRN PO 05/20/16 18:45 06/19/16 18:44 Dextrose (Dextrose 50% 50ML Syringe) 50 ml UD PRN IV 05/20/16 18:45 06/19/16 18:44 Glucagon (Glucagon Inj) 1 mg UD PRN SQ 05/20/16 18:45 06/19/16 18:44 Lansoprazole (Prevacid Solutab) 30 mg QAM PO 05/22/16 09:00 06/21/16 08:59 05/23/16 08:19 30 MG Torsemide (Demadex Tab) 40 mg BID PO 05/22/16 21:00 06/21/16 20:59 05/23/16 08:20 40 MG Metoprolol Succinate (Toprol Xl Tab) 50 mg HS PO 05/22/16 22:00 06/21/16 21:59 05/22/16 22:11 50 MG Impression (1) Dyspnea on exertion (2) Orthopnea (3) Valvular heart disease (4) Chronic kidney disease, stage 4 (severe) (5) Anemia (6) Hypercalcemia Patient admitted w/ 11 lb weight gain, progressive dyspnea on exertion and orthopnea. He has severe valvular heart disease, anemia and stable stage IV CKD. Recommendations VALVULAR HEART DISEASE: With diuretic resistant volume overload -- Dyspnea is likely related to LV dysfunction, and pulmonary HTN -- torsemide changed yesterday to 40 milligram twice a day with significant diuresis, net-1.2 liters but renal function worsened. -- Will change to torsemide 30 milligram twice a day, although at home he was on same dose but did not respond well, will see whether he responds now otherwise will have to switch back to 40 milligram twice a day and may have to accept worsening of renal function to optimize volume status, aim for net even to slightly negative CHRONIC KIDNEY DISEASE: -- Baseline creatinine has been 2.1, renal function slightly worsened to continue diuresis, electrolyte remain stable --would watch in the hospital for 1 more day as there was some change in renal function with diuresis, to optimize volume status and the appropriate diuretic dose. -- Poor dialysis candidate due to valvular heart disease -- Recommend supplement to maintain K > 4.0, Mg > 1.8 -- Monitor serial PRP # hypercalcemia: --improving, discontinue vitamin-D ANEMIA: -- with iron deficiency previously received IV iron --Check iron study and if still low will replete iron otherwise will start on MARLON # Aspiration risk: --pt decided not to have EGD for further eval or feeding tube which seems to reasonable considering his history of advanced heart disease including severe , moderate mitral and tricuspid regurgitation and right-sided heart failure. -- Will resume regular diet Will follow
[2016-05-23] MEDS ORDERED: DOCUSATE SODIUM 100 MG CAP PO ONE (14:30)
[2016-05-23] MEDS: POLYETHYLENE (MIRALAX) 17 GM PACK PO SCH ×2 (14:52→21:17)
[2016-05-23] MEDS: METOPROLOL SUCC 50MG EXT REL TAB PO SCH (21:00)
[2016-05-23] MEDS: LATANOPROST 0.005% OP SOLN 2.5 ML BTL OPB SCH (21:15)
[2016-05-23] MEDS: DOCUSATE SODIUM 100 MG CAP PO SCH (21:41)
--- NOTE | 2016-05-23 21:52 | Progress Note ---
Subjective Date of Service: May 23, 2016. Subjective Pt evaluation today including: conversation w/ patient, conversation w/ family ( at bedside), physical exam, chart review, lab review, conversation w/ bridal sales consultant (speech therapy), review of inpatient medication list Pain: mild abdominal bloating PO Intake: dysphagia persists but "not bad" today Voiding: no voiding problems tele with paced rhythm overnight he continues to walk the hallways and denies significant dyspnea on exertion has had some regurgitation but not as severe as previous he is constipated; passed a very hard stool last night with straining Problem List Medical Problems: (1) Bleeding gums Status: Acute (2) Exertional chest pain Status: Acute (3) Palpitations Status: Acute (4) Pulmonary edema Status: Acute (5) SOB (shortness of breath) Status: Acute Review of Systems Respiratory: No cough Cardiac: No chest pain, No orthopnea Abdomen: + constipation, + pain, + see HPI, No nausea, No vomiting Objective Vital Signs Date Time Temp Pulse Resp B/P Pulse Ox O2 Delivery O2 Flow Rate FiO2 05/23/16 20:00 Room Air 05/23/16 19:53 36.7 56 20 119/70 97 Room Air 05/23/16 16:00 Room Air 05/23/16 15:46 36.4 84 18 114/73 98 Room Air 05/23/16 13:42 80 96 05/23/16 12:11 36.6 67 18 91/44 94 Room Air 05/23/16 08:00 95 Room Air 05/23/16 07:54 36.6 68 18 113/70 95 Room Air 05/23/16 05:06 36.6 83 20 104/64 96 Room Air 05/23/16 04:00 Room Air 05/22/16 23:59 Room Air 05/22/16 23:31 36.6 70 16 104/63 98 Room Air 05/22/16 22:09 82 125/65 Physical Exam General Appearance: no apparent distress ENT: pharynx normal (MMM) Neck: no JVD Respiratory/Chest: lungs clear, no respiratory distress, no accessory muscle use Cardiovascular: regular rate, rhythm, no gallop, + systolic murmur (2/6 LSB and RUSB) Abdomen: normal bowel sounds, non tender, no organomegaly, + distended (mild) Extremities: no pedal edema Neurologic/Psychiatric: alert, oriented x 3 Laboratory Results Last 24 Hours Test 05/23/16 06:09 05/23/16 07:27 05/23/16 11:43 05/23/16 16:42 Sodium Level 138 mmol/L Potassium Level 3.5 mmol/L Chloride Level 96 mmol/L Carbon Dioxide Level 33 mmol/L Anion Gap 9.0 mmol/L Blood Urea Nitrogen 59 mg/dl Creatinine 2.50 mg/dl Est Creatinine Clear Calc Drug Dose 18.1 ml/min Estimated GFR () 25.4 Estimated GFR (Non- 21.9 BUN/Creatinine Ratio 23.4 Random Glucose 105 mg/dl Calcium Level 10.2 mg/dl Bedside Glucose 117 mg/dl 276 mg/dl 117 mg/dl Test 05/23/16 20:54 Bedside Glucose 147 mg/dl Assessment and Plan 89yo male: 1. acute/chronic systolic CHF - acute component resolved. Transitioned to po diuretics yesterday. Cont BB. Weight is at baseline. MARITZA/ARB contraindicated due to CKD. 2. severe dysphagia - after speech and GI consultations the exact etiology of this relatively new issue is unknown. Stroke vs extrinsic compression from left atrial enlargement vs other. He does not wish to pursue EGD. Thus, will allow "palliative eating". Maintain on PPI. I asked speech to see him 1 more time today and they have recommended the following: Speech Therapy Discharge Instructions * 1. Thicken liquids to between honey-pudding thick viscosity; avoid thin liquids (even in soups, cereal, etc.); avoid icy cold liquids 2. If regurgitation persists or increases despite using temperature and viscosity changes, consider Outpatient WALL TAPER consultation for dysphagia management. 3. Complete oral hygiene regularly to minimize the amount of oral bacteria that may be aspirated if the patient should aspirate during regurgitation 3. CKD stage 4 with superimposed acute kidney injury - creatinine 2.5 today. Nephrology reduced torsemide to 30mg BID and have recommended 1 more day in the hospital with BMP in am. 4. severe - noted. 5. hypokalemia - resolved. 6. Chronic atrial fibrillation with tachy/fabrizio s/p pacemaker placement - controlled; he is not on anticoagulation 7. CAD - asa, statin, BB 8. depression - lexapro 9. T2DM - control adequate. Cont novolog SSI 10. BPH - finasteride 11. constipation - add colace & miralax; both BID dosing cleared for home by PT/OT palliative care consult was obtained this admission patient declines hospice at this time but wishes to remain DNR Discharge planning: home
[2016-05-24] VITALS (8 sets, daily range): BP systolic 105–121; BP diastolic 61–74; PULSE 67–100; TEMP 36.4–37; O2SAT 96–97
[2016-05-24 06:11] LABS: BUN/CREATININE RATIO 22.6 (10-20); CALCIUM 10.2 mg/dl (8.5-10.1); POTASSIUM 3.4 mmol/L (3.5-5.1)
[2016-05-24] MEDS: TORSEMIDE 20 MG TAB PO SCH (08:02)
[2016-05-24] MEDS: ESCITALOPRAM OXALATE 10 MG TAB PO SCH (08:02)
[2016-05-24] MEDS: POLYETHYLENE (MIRALAX) 17 GM PACK PO SCH ×2 (08:03→21:21)
[2016-05-24] MEDS: CEROVITE ADV FORMULA TAB PO SCH (08:03)
[2016-05-24] MEDS: LANSOPRAZOLE SOLUTAB 30 MG PO SCH (08:03)
[2016-05-24] MEDS: DOCUSATE SODIUM 100 MG CAP PO SCH ×2 (08:03→21:00)
[2016-05-24] MEDS: TIMOLOL GFS 0.5% OPH SOLN 74 DROPS/5 ML BTL OPB SCH (08:04)
[2016-05-24] MEDS: URSODIOL 300 MG CAP PO SCH ×2 (08:04→21:21)
[2016-05-24] MEDS: LORAZEPAM 0.5 MG TAB PO SCH ×2 (08:08→21:21)
[2016-05-24] MEDS: INSULIN ASPART 100 UNITS/ML 3 ML PEN SC SCH ×4 (09:22→21:00)
--- NOTE | 2016-05-24 12:09 | Nephrology Progress Note ---
Nephrology Progress Note Date of Service May 24, 2016. Chief Complaint Follow-up for CKD, diuretic resistant volume overload. Gilles Ly was seen and examined in his room this morning. He has been overall feeling well, shortness of breath improved, but still has some dysphagia and anorexia. Complain some discomfort in epigastric area but denies any chest pain. He has been responding to diuretics, has been net negative more than 1.2 L overnight on torsemide 30 milligram twice a day Blood pressure has been stable, renal function worsened to creatinine 3.0 other electrolyte acceptable. Review of Systems A complete review of systems was performed. Pertinent positives are noted above. All other systems are negative. Vital Signs Last 8 Hrs Date Time Temp Pulse Resp B/P Pulse Ox O2 Delivery O2 Flow Rate FiO2 05/24/16 11:37 36.5 88 16 116/73 97 Room Air 05/24/16 08:00 Room Air 05/24/16 07:48 36.6 90 16 121/74 97 Room Air 05/24/16 04:38 Room Air 05/24/16 04:34 36.4 100 18 113/63 97 Room Air I & O 24-Hour Column 05/24/16 07:59 Intake Total 710 ml Output Total 325 ml Balance 385 ml Last Recorded Weight Weight (Kilograms): 67.500 Physical Exam GENERAL: Elderly male, AAA x 3, pleasant, ill-appearing, not in any distress. NECK: Supple, no JVD. RESPIRATORY: Normal breathing efforts, no accessory muscle use, clear to auscultation bilaterally, no wheezes or rales. CARDIOVASCULAR: S1, S2 normal, rate rhythm regular. EXTREMITY: No lower extremity edema NEURO: speech fluent. 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 Remote h/o tobacco use Laboratory Results Past 24 Hours 05/24/16 05:29 Test 05/23/16 16:42 05/23/16 20:54 05/24/16 05:29 05/24/16 07:32 Bedside Glucose 117 mg/dl (70-99) 147 mg/dl (70-99) 147 mg/dl (70-99) Anion Gap 12.0 mmol/L (3-11) Est Creatinine Clear Calc Drug Dose 15.1 ml/min Estimated GFR () 20.4 Estimated GFR (Non- 17.6 BUN/Creatinine Ratio 22.6 (10-20) Calcium Level 10.2 mg/dl (8.5-10.1) Test 05/24/16 11:23 Bedside Glucose 185 mg/dl (70-99) Allergies Coded Allergies: Adhesives (Verified Allergy, Unknown, "RED RASH AND ITCHES", 05/20/16) Morphine (Verified Adverse Reaction, Mild, headaches, 05/20/16) Medications Current Inpatient Medications Medications (Trade) Dose Ordered Sig/Angus Route Start Time Stop Time Status Last Admin Dose Admin Acetaminophen (Tylenol Tab) 650 mg Q4H PRN PO 05/20/16 18:45 06/19/16 18:44 Future Hold Nitroglycerin (Nitrostat Tab) 0.4 mg UD PRN SL 05/20/16 18:45 06/19/16 18:44 Aspirin (Ecotrin Tab) 81 mg QPM PO 05/20/16 21:00 06/19/16 20:59 Future Hold 05/21/16 20:07 81 MG Atorvastatin Calcium (Lipitor Tab) 80 mg HS PO 05/20/16 21:00 06/19/16 20:59 Future hold 05/21/16 20:06 80 MG Escitalopram Oxalate (Lexapro Tab) 10 mg DAILY PO 05/21/16 09:00 06/20/16 08:59 Future hold 05/24/16 08:02 10 MG Finasteride (Proscar Tab) 5 mg Q2D@0900 PO 05/21/16 09:00 06/20/16 08:59 Future hold 05/21/16 09:11 5 MG Latanoprost (Xalatan Oph Soln) 1 drops HS OPB 05/20/16 22:00 06/19/16 21:59 05/23/16 21:15 1 DROPS Lorazepam (Ativan Tab) 0.5 mg BID PO 05/20/16 21:00 06/19/16 20:59 Future hold 05/24/16 08:08 0.5 MG Meclizine HCl (Antivert Tab) 25 mg Q8 PRN PO 05/20/16 18:45 06/19/16 18:44 Future hold Multivitamins/ Minerals (Multivitamin W/ Minerals Tab) 1 tab DAILY PO 05/21/16 09:00 06/20/16 08:59 05/24/16 08:03 1 TAB Timolol Maleate (Timoptic-Xe 0.5% Oph Soln) 1 drops QAM OPB 05/21/16 09:00 06/20/16 08:59 05/24/16 08:04 1 DROPS Ursodiol (Actigall Cap) 300 mg BID PO 05/20/16 21:00 06/19/16 20:59 Future hold 05/24/16 08:04 300 MG Miscellaneous Information (Order Awaiting Action) 1 ea QS N/A 05/21/16 00:00 06/20/16 00:00 Ondansetron HCl (Zofran Inj) 4 mg Q6H PRN IV 05/20/16 18:45 06/19/16 18:44 Insulin Aspart (novoLOG ASPART) SLIDING SCALE If C... ACHS SC 05/20/16 21:30 06/20/16 21:29 05/23/16 13:09 4 UNITS Glucose (Glucose 40% Gel) UD PRN PO 05/20/16 18:45 06/19/16 18:44 Glucose (Glucose Chew Tab) 1 tabs UD PRN PO 05/20/16 18:45 06/19/16 18:44 Dextrose (Dextrose 50% 50ML Syringe) 50 ml UD PRN IV 05/20/16 18:45 06/19/16 18:44 Glucagon (Glucagon Inj) 1 mg UD PRN SQ 05/20/16 18:45 06/19/16 18:44 Lansoprazole (Prevacid Solutab) 30 mg QAM PO 05/22/16 09:00 06/21/16 08:59 05/24/16 08:03 30 MG Metoprolol Succinate (Toprol Xl Tab) 50 mg HS PO 05/22/16 22:00 06/21/16 21:59 05/22/16 22:11 50 MG Docusate Sodium (coLACE CAP) 100 mg BID PO 05/23/16 21:00 06/22/16 20:59 05/24/16 08:03 100 MG Polyethylene (Miralax Powder Packet) 17 gm BID PO 05/23/16 14:30 3/21/17 14:29 05/24/16 08:03 17 GM Non-Formulary Medication 1 ea UD N/A 05/24/16 11:30 06/23/16 11:29 UNV Impression (1) Dyspnea on exertion (2) Orthopnea (3) Valvular heart disease (4) Chronic kidney disease, stage 4 (severe) (5) Anemia (6) Hypercalcemia Patient admitted w/ 11 lb weight gain, progressive dyspnea on exertion and orthopnea. He has severe valvular heart disease, anemia and stable stage IV CKD. Recommendations VALVULAR HEART DISEASE: With diuretic resistant volume overload -- Dyspnea is likely related to LV dysfunction, and pulmonary HTN -- torsemide changed yesterday to 40 milligram twice a day with significant diuresis, net-1.2 liters but renal function worsened. -- Will change to torsemide 30 milligram twice a day, although at home he was on same dose but did not respond well, will see whether he responds now otherwise will have to switch back to 40 milligram twice a day and may have to accept worsening of renal function to optimize volume status, aim for net even to slightly negative # ZOHREH: --possibly with intravascular volume depletion continued diuresis -- hold torsemide today --Discussed in detail with the patient about future options including considering dialysis versus hospice care considering his significant cardiovascular issues and overall poor health. Previously patient decided not to consider dialysis but seems to be reconsidering a cane and also like to know more about hospice care which in fact seems to be a reasonable option. CHRONIC KIDNEY DISEASE: -- Baseline creatinine has been 2.1, renal function slightly worsened to continue diuresis, electrolyte remain stable --would watch in the hospital for 1 more day as there was some change in renal function with diuresis, to optimize volume status and the appropriate diuretic dose. -- Poor dialysis candidate due to valvular heart disease -- Recommend supplement to maintain K > 4.0, Mg > 1.8 -- Monitor serial PRP ANEMIA: -- with iron deficiency previously received IV iron --Check iron study and if still low will replete iron otherwise will start on MARLON Will follow
[2016-05-24] MEDS: FLUOROURACIL 5% EXT SCH ×2 (14:22→21:23)
--- NOTE | 2016-05-24 15:25 | Family Medicine Progress Note ---
Progress Note Date of Service May 24, 2016. Subjective Pt evaluation today including: conversation w/ patient Voiding: no voiding problems no acute events Patient is considering home hospice Constitutional: + fatigue, No chills, No fever Eyes: No worsening of vision ENT: No hearing loss Respiratory: No cough, No dyspnea on exertion, No shortness of breath, No sputum Cardiovascular: No chest pain Abdomen: No diarrhea, No nausea, No pain, No vomiting Male : No dysuria, No urinary frequency Objective Physical Exam General Appearance: no apparent distress Eyes: PERRL, EOMI ENT: hearing grossly normal Neck: supple, no adenopathy Respiratory/Chest: lungs clear, normal breath sounds, no respiratory distress, no accessory muscle use Cardiovascular: regular rate, rhythm, no edema Abdomen: normal bowel sounds, non tender, soft Extremities: normal inspection, no pedal edema Neurologic/Psychiatric: alert, normal mood/affect, oriented x 3 Assessment and Plan 89 y/o male: Acute on chronic systolic CHF - resolved torsemide 30 mg bid Cont BB. Weight is at baseline. MARITZA/ARB contraindicated due to CKD. Acute on Chronic CKD- worsening Cr at 3 today Likely from volume depletion - torsemide held just for today Patient is heading towards dialysis, however he has multiple comorbidities especially from a cardiovascular standpoint. Dialysis is certainly an option vs. Home hospice- Patient and are undecided but they are considering dialysis. Baseline 2 Hypokalemia replaced recheck Severe dysphagia - Etiology unknown, Speech and GI evaluated Stroke vs extrinsic compression from left atrial enlargement vs other.- patient decided against EGD Maintain on PPI. Speech Therapy Discharge Instructions * 1. Thicken liquids to between honey-pudding thick viscosity; avoid thin liquids (even in soups, cereal, etc.); avoid icy cold liquids 2. If regurgitation persists or increases despite using temperature and viscosity changes, consider Outpatient ELECTRONIC WARFARE TECHNICIAN consultation for dysphagia management. 3. Complete oral hygiene regularly to minimize the amount of oral bacteria that may be aspirated if the patient should aspirate during regurgitation Cardiac History: severe Aortic Stenosis , AFib s/p Pacemaker (controlled, not on AC), CAD (Asa, Statin, BB), T2DM- controlled, ISS palliative care consult obtained patient deciding on hospice vs. dialysis Resident Tracking Resident Involvement: Resident Care Provided Care Provided: Adult [facility] Medicine
--- NOTE | 2016-05-24 15:41 | Palliative Care Progress Note ---
Palliative Care Progress Note Date of Service May 24, 2016. Subjective Pt evaluation today including: conversation w/ patient, conversation w/ family , physical exam, chart review, conversation w/ sr technical sales consultant Pain: 0/10 PO Intake: decreased appetite, tolerating diet with honey-pudding thickened liquids Voiding: voiding difficulty (urinary hesitancy) -"I feel pretty good." -Having urinary hesitancy- discussed with Dr. Levin -Torsemide held today, creatinine 3.[address] Pace. -Had a long discussion with patient and . Patient stated, "I know I have a fatal disease, but I don't feel like it. I feel good. And it doesn't bother me to talk about these things." we discussed that symptoms and fluid build-up will return. -Rethinking dialysis. We discussed benefit vs. burden but patient feels as though he may be up to trying it. I will continue goals of care conversation and support he and his in decision making. Review of Systems Constitutional: + fatigue (with exertion) Respiratory: + dyspnea on exertion, No shortness of breath Cardiac: No chest pain, No edema (much improved) Abdomen: + problem reported (decreased appetite and dysphagia), No nausea, No pain, No vomiting Male : + see HPI Psychiatric: No anxiety, No depression symptoms Objective Vital Signs Date Time Temp Pulse Resp B/P Pulse Ox O2 Delivery O2 Flow Rate FiO2 05/24/16 12:00 Room Air 05/24/16 11:37 36.5 88 16 116/73 97 Room Air 05/24/16 08:00 Room Air 05/24/16 07:48 36.6 90 16 121/74 97 Room Air 05/24/16 04:38 Room Air 05/24/16 04:34 36.4 100 18 113/63 97 Room Air 05/23/16 23:34 36.7 84 18 103/59 98 Room Air 05/23/16 23:25 Room Air 05/23/16 20:00 Room Air 05/23/16 19:53 36.7 56 20 119/70 97 Room Air 05/23/16 16:00 Room Air 05/23/16 15:46 36.4 84 18 114/73 98 Room Air Physical Exam General Appearance: no apparent distress ENT: + pertinent finding (lips dusky) Neck: no JVD, trachea midline Respiratory/Chest: no respiratory distress, no accessory muscle use, + decreased breath sounds Cardiovascular: regular rate, rhythm, + normal peripheral pulses, + pertinent finding (trace edema to ankles, much improved) Abdomen: normal bowel sounds, non tender, soft Neurologic/Psychiatric: alert, normal mood/affect, oriented x 3 Laboratory Results Last 24 Hours Test 05/23/16 16:42 05/23/16 20:54 05/24/16 05:29 05/24/16 07:32 Bedside Glucose 117 mg/dl 147 mg/dl 147 mg/dl Sodium Level 140 mmol/L Potassium Level 3.4 mmol/L Chloride Level 96 mmol/L Carbon Dioxide Level 32 mmol/L Anion Gap 12.0 mmol/L Blood Urea Nitrogen 68 mg/dl Creatinine 3.00 mg/dl Est Creatinine Clear Calc Drug Dose 15.1 ml/min Estimated GFR () 20.4 Estimated GFR (Non- 17.6 BUN/Creatinine Ratio 22.6 Random Glucose 132 mg/dl Calcium Level 10.2 mg/dl Test 05/24/16 11:23 Bedside Glucose 185 mg/dl Assessment and Plan Problem list: Weakness Dyspnea on exertion Dysphagia CHF exacerbation Chronic kidney disease Valvular heart disease Anemia, chronic Goals of care (Z51.5) Palliative care plan: -Patient is now reconsidering dialysis and thinks he would be willing to give it a try if it was clinically indicated. I discussed in detail with him and his about both avenues: dialysis vs. no dialysis and hospice; benefit vs. burden. He is focused on comfort and on being at home with his , but he feels his quality of life is good enough to possibly give dialysis a try. We will take this one day at a time. His nephrology care is being managed by Dr. Pace. -Have some difficulty with urinary hesitancy- finasteride was recently decreased to Q2d. Spoke with Dr. Levin about this, changes may be made tomorrow. -No pain, discomfort or SOB. No need for symptom management at this time. -Will continue to follow and support patient and with medical decision making. Palliative Performance Scale: 50 % Discharge planning: home
[2016-05-24] MEDS: POTASSIUM CHLR 10 MEQ / WTR 10 MEQ in PREMIXED WATER 100 ML IV SCH ×2 (16:05→18:15)
[2016-05-24] MEDS: METOPROLOL SUCC 50MG EXT REL TAB PO SCH (21:21)
[2016-05-24] MEDS: ATORVASTATIN 40 MG TAB PO SCH (21:22)
[2016-05-24] MEDS: LATANOPROST 0.005% OP SOLN 2.5 ML BTL OPB SCH (21:23)
[2016-05-25 04:00] VITALS: BP 107/63; PULSE 78; TEMP 36.7; O2SAT 95
[2016-05-25 06:46] LABS: BUN/CREATININE RATIO 22.7 (10-20); CALCIUM 9.7 mg/dl (8.5-10.1); CREATININE 2.7 mg/dl (0.60-1.40); PHOSPHORUS 2.9 mg/dl (2.5-4.9); POTASSIUM 3.5 mmol/L (3.5-5.1)
[2016-05-25 07:22] VITALS: BP 118/69; PULSE 64; TEMP 36.4; O2SAT 97
[2016-05-25] MEDS: INSULIN ASPART 100 UNITS/ML 3 ML PEN SC SCH (08:56)
[2016-05-25] MEDS: TIMOLOL GFS 0.5% OPH SOLN 74 DROPS/5 ML BTL OPB SCH (08:57)
[2016-05-25] MEDS: URSODIOL 300 MG CAP PO SCH (08:57)
[2016-05-25] MEDS: DOCUSATE SODIUM 100 MG CAP PO SCH (08:59)
[2016-05-25] MEDS: LANSOPRAZOLE SOLUTAB 30 MG PO SCH (08:59)
[2016-05-25] MEDS: CEROVITE ADV FORMULA TAB PO SCH (08:59)
[2016-05-25] MEDS: ESCITALOPRAM OXALATE 10 MG TAB PO SCH (08:59)
[2016-05-25] MEDS ORDERED: FINASTERIDE 5 MG TAB PO SCH (09:00)
[2016-05-25] MEDS: FLUOROURACIL 5% EXT SCH (09:04)
[2016-05-25] MEDS: LORAZEPAM 0.5 MG TAB PO SCH (09:04)
[2016-05-25] MEDS: POLYETHYLENE (MIRALAX) 17 GM PACK PO SCH (09:05)
--- NOTE | 2016-05-25 10:15 | Nephrology Progress Note ---
Nephrology Progress Note Date of Service May 25, 2016. Chief Complaint Follow-up for CKD, diuretic resistant volume overload. Gilles Ly was seen and examined in his room this morning. He has been overall feeling well, shortness of breath improved. He has been off of diuretics since yesterday but has been voiding normally and volume status seems stable. Blood pressure has been stable, renal function slightly improved to creatinine 2.7 other electrolyte acceptable Review of Systems A complete review of systems was performed. Pertinent positives are noted above. All other systems are negative. Vital Signs Last 8 Hrs Date Time Temp Pulse Resp B/P Pulse Ox O2 Delivery O2 Flow Rate FiO2 05/25/16 07:22 36.4 64 18 118/69 97 Room Air 05/25/16 04:00 36.7 78 18 107/63 95 Room Air 05/25/16 00:10 Room Air I & O 24-Hour Column 05/25/16 07:59 Intake Total 915 ml Output Total 550 ml Balance 365 ml Last Recorded Weight Weight (Kilograms): 69.700 Physical Exam GENERAL: Elderly male, AAA x 3, pleasant, ill-appearing, not in any distress. NECK: Supple, no JVD. RESPIRATORY: Normal breathing efforts, no accessory muscle use, clear to auscultation bilaterally, no wheezes or rales. CARDIOVASCULAR: S1, S2 normal, rate rhythm regular. EXTREMITY: No lower extremity edema NEURO: speech fluent. 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 Remote h/o tobacco use Laboratory Results Past 24 Hours 05/25/16 05:16 Test 05/24/16 07:32 05/24/16 11:23 05/24/16 16:42 05/24/16 20:46 Bedside Glucose 147 mg/dl (70-99) 185 mg/dl (70-99) 161 mg/dl (70-99) 178 mg/dl (70-99) Test 05/25/16 05:16 Anion Gap 10.0 mmol/L (3-11) Est Creatinine Clear Calc Drug Dose 16.7 ml/min Estimated GFR () 23.2 Estimated GFR (Non- 20.0 BUN/Creatinine Ratio 22.7 (10-20) Calcium Level 9.7 mg/dl (8.5-10.1) Phosphorus Level 2.9 mg/dl (2.5-4.9) Albumin 3.5 gm/dl (3.4-5.0) Allergies Coded Allergies: Adhesives (Verified Allergy, Unknown, "RED RASH AND ITCHES", 05/20/16) Morphine (Verified Adverse Reaction, Mild, headaches, 05/20/16) Medications Current Inpatient Medications Medications (Trade) Dose Ordered Sig/Angus Route Start Time Stop Time Status Last Admin Dose Admin Acetaminophen (Tylenol Tab) 650 mg Q4H PRN PO 05/20/16 18:45 06/19/16 18:44 Future Hold Nitroglycerin (Nitrostat Tab) 0.4 mg UD PRN SL 05/20/16 18:45 06/19/16 18:44 Aspirin (Ecotrin Tab) 81 mg QPM PO 05/20/16 21:00 06/19/16 20:59 Future Hold 05/21/16 20:07 81 MG Atorvastatin Calcium (Lipitor Tab) 80 mg HS PO 05/20/16 21:00 06/19/16 20:59 Future hold 05/24/16 21:22 80 MG Escitalopram Oxalate (Lexapro Tab) 10 mg DAILY PO 05/21/16 09:00 06/20/16 08:59 Future hold 05/24/16 08:02 10 MG Latanoprost (Xalatan Oph Soln) 1 drops HS OPB 05/20/16 22:00 06/19/16 21:59 05/24/16 21:23 1 DROPS Lorazepam (Ativan Tab) 0.5 mg BID PO 05/20/16 21:00 06/19/16 20:59 Future hold 05/24/16 21:21 0.5 MG Meclizine HCl (Antivert Tab) 25 mg Q8 PRN PO 05/20/16 18:45 06/19/16 18:44 Future hold Multivitamins/ Minerals (Multivitamin W/ Minerals Tab) 1 tab DAILY PO 05/21/16 09:00 06/20/16 08:59 05/24/16 08:03 1 TAB Timolol Maleate (Timoptic-Xe 0.5% Oph Soln) 1 drops QAM OPB 05/21/16 09:00 06/20/16 08:59 05/24/16 08:04 1 DROPS Ursodiol (Actigall Cap) 300 mg BID PO 05/20/16 21:00 06/19/16 20:59 Future hold 05/24/16 21:21 300 MG Ondansetron HCl (Zofran Inj) 4 mg Q6H PRN IV 05/20/16 18:45 06/19/16 18:44 Insulin Aspart (novoLOG ASPART) SLIDING SCALE If C... ACHS SC 05/20/16 21:30 06/20/16 21:29 05/23/16 13:09 4 UNITS Glucose (Glucose 40% Gel) UD PRN PO 05/20/16 18:45 06/19/16 18:44 Glucose (Glucose Chew Tab) 1 tabs UD PRN PO 05/20/16 18:45 06/19/16 18:44 Dextrose (Dextrose 50% 50ML Syringe) 50 ml UD PRN IV 05/20/16 18:45 06/19/16 18:44 Glucagon (Glucagon Inj) 1 mg UD PRN SQ 05/20/16 18:45 06/19/16 18:44 Lansoprazole (Prevacid Solutab) 30 mg QAM PO 05/22/16 09:00 06/21/16 08:59 05/24/16 08:03 30 MG Metoprolol Succinate (Toprol Xl Tab) 50 mg HS PO 05/22/16 22:00 06/21/16 21:59 05/24/16 21:21 50 MG Docusate Sodium (coLACE CAP) 100 mg BID PO 05/23/16 21:00 06/22/16 20:59 05/24/16 08:03 100 MG Polyethylene (Miralax Powder Packet) 17 gm BID PO 05/23/16 14:30 06/22/16 14:29 05/24/16 21:21 17 GM Fluorouracil (Efudex Cream 5%) 1 appln BID EXT 05/24/16 12:15 06/23/16 12:14 05/24/16 21:23 1 APPLN Finasteride (Proscar Tab) 5 mg DAILY PO 05/25/16 09:00 06/24/16 08:59 Impression (1) Dyspnea on exertion (2) Orthopnea (3) Valvular heart disease (4) Chronic kidney disease, stage 4 (severe) (5) Anemia (6) Hypercalcemia Patient admitted w/ 11 lb weight gain, progressive dyspnea on exertion and orthopnea. He has severe valvular heart disease, anemia and stable stage IV CKD. Recommendations VALVULAR HEART DISEASE: With diuretic resistant volume overload -- Dyspnea is likely related to LV dysfunction, and pulmonary HTN --volume status improved and currently stable, hold diuretics and discharged and advise patient to weigh him daily and resume diuretics as needed. # ZOHREH: --possibly with intravascular volume depletion with continued diuresis --renal function improving with diuretics on hold --he is considering dialysis in future if needed and currently not radiate to consider hospice care --plan to discharge him with close outpatient lab monitoring, renal panel this Tuesday and next week and follow-up in the office in 3 weeks --If renal function continue to worsen will schedule with vascular surgery for AV fistula placement. CHRONIC KIDNEY DISEASE: -- Baseline creatinine has been 2.1, renal function slightly worsened to continue diuresis, electrolyte remain stable --would watch in the hospital for 1 more day as there was some change in renal function with diuresis, to optimize volume status and the appropriate diuretic dose. -- Poor dialysis candidate due to valvular heart disease -- Recommend supplement to maintain K > 4.0, Mg > 1.8 -- Monitor serial PRP ANEMIA: -- with iron deficiency previously received IV iron --Check iron study and if still low will replete iron otherwise will start on MARLON Will follow
[2016-05-25] MEDS ORDERED: TPRSR50 PO (10:18)
[2016-05-25] MEDS ORDERED: DMD20 PO (10:24)
--- NOTE | 2016-05-25 10:36 | Discharge Instructions ---
Discharge Instructions Admission Reason for Admission: Chf Exacerbation Discharge Discharge Diagnosis / Problem: CHF exacerbation, Dysphagia, CKD stage 4 Discharge Goals Goal(s): Decrease discomfort, Improve function, Learn about illness, Diagnostic testing Activity Recommendations Activity Limitations: as noted below Lifting Limitations: gradually increase as tolerated Exercise/Sports Limitations: gradually increase as tolerated May Resume Sexual Activity: when tolerated Shower/Bathe: no limitations Driving or Machine Use: no limitations . Instructions / Follow-Up Instructions / Follow-Up Dear Mr. Alcaraz, You were admitted for difficulty breathing which is due to fluid building up in your lungs. You were treated appropriately with diuretics. However, you were also found to have worsening kidney function which was contributing to your heart failure. You have had multiple discussions with your health psychologist and palliative care about dialysis versus hospice care. At this time, no decision has been made. Your kidney function has improved a little. Your metoprolol Dose has been reduced to 50 mg due to low heart rate We would like you to Weigh yourself today when you get home. Continue taking torsemide 30 mg twice daily You will weigh yourself daily and if there is a 2-3 lb weight gain, you will take 40 mg of Torsemide twice daily and call the health psychologist (dr. Pace) You will need repeat blood work on Tuesday, May 28 Follow up with your PCP, Dr. Nunez on 05/[address] Pace in 2 weeks. You will also have an appointment with Heart Failure clinic. You also were evaluated for Difficulty swallowing: Speech Therapy Discharge Instructions * 1. Thicken liquids to between honey-pudding thick viscosity; avoid thin liquids (even in soups, cereal, etc.); avoid icy cold liquids 2. If regurgitation persists or increases despite using temperature and viscosity changes, please speak to PCP about Outpatient Speech consultation. 3. Complete oral hygiene regularly to minimize the amount of oral bacteria that may be aspirated. If you experience any further symptoms, please call your PCP or come to the ER. Thank you for allowing us to be a part of your care. Current Hospital Diet Patient's current hospital diet: AHA Diet (Heart Healthy), Diabetes Type 2 Diet Discharge Diet Recommended Diet: Full Liquid Diet Fluid Restriction: 1500 ml (6 cups) Liquid Consistency: Honey Thick Pending Studies Studies pending at discharge: no Medical Emergencies . Who to Call and When: Medical Emergencies: If at any time you feel your situation is an emergency, please call 911 immediately. . Non-Emergent Contact Non-Emergency issues call your: Primary Care Provider, Outside Sales Account Executive . . "Provider Documentation" section prepared by Yaima العلي. VTE Core Measure Inpt VTE Proph given/why not?: SCD's
--- NOTE | 2016-05-25 10:36 | Discharge Summary ---
Discharge Summary Admission Date: May 20, 2016 at 18:41 Discharge Disposition: Home Principal Diagnosis: CHF exacerbation Problems/Secondary Diagnoses: Acute on CKD stage 4 Dysphagia Immunizations: Have You Had Influenza Vaccine: Yes Influenza Vaccine Date: Jan 25, 2011 History of Tetanus Vaccine?: Unknown Tetanus Immunization Date: Jan 16, 2010 History of Pneumococcal: Yes Pneumococcal Date: Apr 04, 2003 History of Hepatitis B Vaccine: Unknown Procedures: MODIFIED BARIUM SWALLOW CLINICAL HISTORY: Thin liquid regurgitation. COMPARISON STUDY: No previous studies for comparison. Fluoroscopy time: 1.5 minutes. FINDINGS: Delayed initiation of the swallowing mechanism was noted. No regurgitation was identified within liquids by spoon. However, there was regurgitation with single swallows of thin liquids as well as retrograde motion of contrast with pudding consistency. Evaluation for aspiration was suboptimal on this exam. There is possible trace tracheal aspiration with thin liquids. Significant esophageal dysmotility is suspected. IMPRESSION: 1. Regurgitation of swallows of thin liquids and pudding consistencies with suspected esophageal dysmotility. 2. Suboptimal evaluation for tracheal aspiration. Possible minimal tracheal aspiration with thin liquids. 3. Full recommendations by speech pathology to follow. Consultations: Nephrology Gastroenterology Cardiology Medication Reconciliation New Medications: Metoprolol Succinate (Metoprolol Succinate ER) 50 Mg Tabcr 50 MG PO HS for 30 Days, #30 Changed Medications: Torsemide (Torsemide) 20 Mg Tab 30 MG PO BID for 30 Days, #90 (Changed from: 20-30 MG; DAILY; MAY TAKE 1 AND 1/ 2 TAB FOR WEIGHT GAIN.) Take 1 and 1/2 tablet twice daily. Increase to two tablets twice daily if increased weight gain- call Research Soil Scientist Continued Medications: Aspirin Enteric Coated (Ecotrin Or Generic) 81 Mg Tab 81 MG PO QPM, TAB Atorvastatin (Lipitor) 80 Mg Tab 80 MG PO DHS, 0 Refills Calcitriol (Rocaltrol Cap) 0.25 Mcg Cap 0.25 MCG PO 3XWK, CAP Cholecalciferol (Vitamin D3) 2,000 Unit Cap 1 CAP PO DAILY for 30 Days, #30 CAP 3 Refills Escitalopram Oxalate (Lexapro) 20 Mg Tab 10 MG PO DAILY, TAB Finasteride (Proscar) 5 Mg Tab 5 MG PO Q2D, TAB Fluorouracil (Topical) (Efudex) 5 % Cre 1 APPLN TOP BID for 14 Days, #40 GM Glimepiride (Glimepiride) 2 Mg Tab 0.5 TAB PO DAILY for 30 Days, #15 TAB 5 Refills Latanoprost 0.005% Oph (Xalatan 0.005% Oph) Soln 1 DROP OPB HS Lorazepam (Ativan *) 0.5 Mg Tab 0.5 MG PO BID, 0 Refills Meclizine Hcl (Meclizine Hcl) 25 Mg Tab 1 TAB PO Q8 PRN for VERTIGO Multiple Vitamins W/ Minerals (Ocuvite) 1 Tab Tab 1 TAB PO DAILY Nutritional Supplements (Boost) 1 Liq Liq 1 CAN PO BID, #60 CAN Ondansetron Tab (Zofran) 4 Mg Tab 4 MG PO PRN PRN for Nausea, TAB Timolol Gfs 0.5% Oph (Timoptic-Xe 0.5% Oph) Soln 1 DROP OPB QAM, 0 Refills Ursodiol (Actigall *) 300 Mg Cap 300 MG PO BID Discontinued Medications: Metoprolol Succ (Toprol Xl) (Toprol-Xl ) 100 Mg Tabcr 100 MG PO QPM, TAB Discharge Exam This is an 89 y/o M with a history of CHF s/p pacemaker, AFib, CKD stage 4, VHD who presented with an 11 lb weight gain, fatigue and shortness of breath. He was found to have acute CHF exacerbation despite being on Torsemide. Nephrology was consulted and his Torsemide dose was adjusted to increase diuresis. In the interim, he had worsening kidney function, likely due to diuresis but also worsening baseline kidney function. Due to his co-morbidities, cardiac history he may be a poor candidate for dialysis. Nephrology and Palliative care had discussions about dialysis vs. hospice. The patient and did not make a decision but were leaning toward dialysis if it came to that point. He improved from a CHF standpoint. He was given instructions on what to do if he started to gain weight. He would increase his torsemide dose and call nephrology. He is to repeat BMP in 3-4 days to recheck Cr. His Metoprolol dose was also adjusted to 50 mg from 100 mg due to intermittent bradycardia. This may need to be re-adjusted at Follow up visit with PCP. He will have follow up with the Heart Failure Clinic and Nephrology. There were also concerns about recent onset dysphagia. GI was consulted and ultimately EGD was decided against by the family. Etiology remains unknown. A video swallow did confirm Regurgitation of thin liquids and pudding consistencies, favoring esophageal dysmotility. There was concern about stroke ( Afib) vs. extrinsic compression by left atrial enlargement. Ultimately Speech was consulted and they had made the following recommendations Speech Therapy Discharge Instructions * 1. Thicken liquids to between honey-pudding thick viscosity; avoid thin liquids (even in soups, cereal, etc.); avoid icy cold liquids 2. If regurgitation persists or increases despite using temperature and viscosity changes, consider Outpatient STAFFING COORDINATOR consultation for dysphagia management. 3. Complete oral hygiene regularly to minimize the amount of oral bacteria that may be aspirated if the patient should aspirate during regurgitation All other comorbidities and acute issues were managed as appropriate. Review of Systems: Constitutional: No chills, No fever Eyes: No worsening of vision Respiratory: No cough, No dyspnea at rest, No dyspnea on exertion, No shortness of breath, No sputum, No wheezing Cardiovascular: No chest pain Abdomen: No diarrhea, No nausea, No pain Genitourinary - Male: + urinary frequency Physical Exam: General Appearance: no apparent distress Eyes: PERRL, EOMI ENT: hearing grossly normal Neck: supple, no adenopathy Respiratory/Chest: lungs clear, normal breath sounds, no respiratory distress Cardiovascular: regular rate, rhythm, no edema Abdomen / GI: normal bowel sounds, non tender, soft Neurologic/Psychiatric: alert, normal mood/affect, oriented x 3 Hospital Course Total Time Spent: Less than 30 minutes This includes examination of the patient, discharge planning, medication reconciliation, and communication with other providers. Discharge Instructions Please refer to the electronic Patient Visit Report (Discharge Instructions) for additional information. Additional Copies To Carlos Nunez M.D. Resident Tracking Resident Involvement: Resident Care Provided Care Provided: Adult [facility] Medicine
[2016-05-25 11:24] VITALS: BP 118/69; PULSE 64; TEMP 36.4; O2SAT 97
--- NOTE | 2016-05-27 14:06 | EDITING REQUIRED CODING QUERY ---
CODING QUERY Dear Dr. Levin, To promote full compliance with coding requirements relating to patient care, provider participation is requested in all cases of rn pediatric icu uncertainty. Please assist us with the question(s) below: In responding to this query, please exercise your independent professional judgement. The fact that a question is asked does not imply that any particular answer is desired or expected. We appreciate your clarification on this issue. Coding Question(s): Conflicting information: Acute on Chronic Diastolic CHF Acute on Chronic Systolic CHF ( ) Acute on Chronic Diastolic CHF ( ) Acute on Chronic Systolic CHF (x ) Acute on Chronic Diastolic and Systolic CHF ( ) Other: Please explain Medical Documentation: Progress note 1. acute/chronic systolic CHF - acute component resolved. Transition to po diuretics. Cont BB. Weight is at baseline. MARITZA/ARB contraindicated due to CKD.. DISCHARGE SUMMARY Acute on chronic heart failure, diastolic, valvular disease: currently euvolemic, difficult time removing volume on Torsemide due to CKD no breathing difficulties at time of discharge appreciate cardiology following will refer to heart failure clinic on discharge he knows to weight himself daily Physician's Response(s): Thank you for your time. K[facility] Powell [facility] Principal Diagnosis: "_that condition established after study, to be chiefly responsible for occasioning the admission of the patient to the hospital for care." Co-Existing Principal Diagnosis: "_when two or more diagnoses equally meet the criteria for principal diagnosis as determined by the circumstances of admission, diagnostic work up, and/or therapy provided, and the Alphabetic Index, Tabular List, or another coding guideline does not provide sequencing direction, any one of the diagnoses may be sequenced first." "When the physician has documented what appears to be a current diagnosis in the body of the record, but has not included the diagnosis in the final diagnostic statement, the physician should be asked whether the diagnosis should be added." (Source Coding Clinic 2 QTR90. p3-4)
[2016-07-24] MEDS ORDERED: METO1TAB70 PO (00:57)
[2016-09-21] MEDS ORDERED: DRGTP12 TD (09:07)
== END 2016-05-25 12:50 | disposition home health service (06) | DRG 292 ==
LOC: ENRESERVDT → ENRESERVTM → C.EDB 15:05 → C.MED 18:41
PROVIDERS: ADMIT Hospitalist; ATTEND Internal Medicine
DX: I50.43 Acute on chronic combined systolic (congestive) and diastolic (congestive) heart failure (principal); N18.4 Chronic kidney disease, stage 4 (severe); N17.9 Acute kidney failure, unspecified; I13.0 Hypertensive heart and chronic kidney disease with heart failure and stage 1 through stage 4 chronic kidney disease, or unspecified chronic kidney disease; N39.0 Urinary tract infection, site not specified; I48.2 Chronic atrial fibrillation; N40.0 Benign prostatic hyperplasia without lower urinary tract symptoms; Z95.0 Presence of cardiac pacemaker; Z87.891 Personal history of nicotine dependence; D64.9 Anemia, unspecified; I25.10 Atherosclerotic heart disease of native coronary artery without angina pectoris; I25.5 Ischemic cardiomyopathy; E83.52 Hypercalcemia; E87.6 Hypokalemia; H40.9 Unspecified glaucoma; E78.00 Pure hypercholesterolemia, unspecified; I27.2 Other secondary pulmonary hypertension; F32.9 Major depressive disorder, single episode, unspecified; F41.9 Anxiety disorder, unspecified; Z66 Do not resuscitate; R13.10 Dysphagia, unspecified; I08.3 Combined rheumatic disorders of mitral, aortic and tricuspid valves; R06.09 Other forms of dyspnea; E11.22 Type 2 diabetes mellitus with diabetic chronic kidney disease; R53.1 Weakness; H81.09 Meniere's disease, unspecified ear; K59.00 Constipation, unspecified; E78.5 Hyperlipidemia, unspecified; Z95.5 Presence of coronary angioplasty implant and graft; Z87.19 Personal history of other diseases of the digestive system; Z85.828 Personal history of other malignant neoplasm of skin; Z79.82 Long term (current) use of aspirin; Z79.899 Other long term (current) drug therapy; Z79.84 Long term (current) use of oral hypoglycemic drugs

== ENCOUNTER → 2016-05-28 | Outpatient (CLI) | payer OTHER ==
[~2016-05-28] MED LIST changes: +ASPI-435 PO; +CEPH500C2 PO; +DRGTP12 TD; +LACT10SO17 PO; +LATA0.5S OPB; +LORA-741 PO; +METO1TAB70 PO; +METO5TAB5 PO; +MULT-506 PO; +ONDA4TAB46 PO; -POLY3350 PO; +POLY335019 PO; +POTA10TA PO; +TIMO0.5S35 OPB; +TORS20TA2 PO
[2016-05-28 10:40] LABS: ALT/SGPT 21 U/L (12-78); AST/SGOT 9 U/L (15-37); BLOOD UREA NITROGEN 55 mg/dl (7-18); BUN/CREATININE RATIO 23.1 (10-20); CALCIUM 9.5 mg/dl (8.5-10.1); CARBON DIOXIDE 34 mmol/L (21-32); CHLORIDE 98 mmol/L (98-107); GLUCOSE 75 mg/dl (70-99); POTASSIUM 3.9 mmol/L (3.5-5.1); SODIUM 138 mmol/L (136-145)
[2016-05-28 10:42] LABS: ALB/GLOB RATIO 1.1 (0.9-2); ALKALINE PHOSPHATASE 57 U/L (45-117)
== END | disposition home or self-care (01) ==
LOC: C.LAB1850 09:21
PROVIDERS: ATTEND Student in an Organized Health Care Education/Training Program
DX: N18.9 Chronic kidney disease, unspecified (principal)

== ENCOUNTER → 2016-06-04 | Outpatient (CLI) | payer OTHER ==
[2016-06-04 11:15] LABS: HEMATOCRIT 28.5 % (42-52); MEAN CELL VOLUME 93.4 fL (80-100); MEAN CORPUSCULAR HEMOGLOBIN 31.8 pg (25-34); MEAN PLATELET VOLUME 9.1 fL (7.4-10.4); PLATELET COUNT 147 K/uL (130-400); RED BLOOD COUNT 3.05 M/uL (4.7-6.1); WHITE BLOOD COUNT 7.04 K/uL (4.8-10.8)
[2016-06-04 11:46] LABS: BLOOD UREA NITROGEN 54 mg/dl (7-18); BUN/CREATININE RATIO 24.6 (10-20); CALCIUM 9.4 mg/dl (8.5-10.1); CARBON DIOXIDE 36 mmol/L (21-32); CHLORIDE 93 mmol/L (98-107); GLUCOSE 119 mg/dl (70-99); PHOSPHORUS 3.4 mg/dl (2.5-4.9); POTASSIUM 3.4 mmol/L (3.5-5.1); SODIUM 136 mmol/L (136-145)
[2016-06-04 11:49] LABS: FERRITIN 445.8 ng/ml (8.0-388.0); TOTAL IRON BINDING CAPACITY 299 mcg/dl (250-450)
[2016-06-04 12:13] LABS: URINE APPEARANCE CLEAR (CLEAR); URINE BILIRUBIN NEG (NEG); URINE COLOR YELLOW; URINE NITRITE NEG (NEG); URINE SPECIFIC GRAVITY 1.004 (1.000-1.030); UROBILINOGEN NEG (NEG)
[2016-06-04 12:27] LABS: MANUAL MICROSCOPIC REQUIRED? NO; REVIEW REQ? NO
== END | disposition home or self-care (01) ==
LOC: C.LAB1850 10:36
PROVIDERS: ATTEND Internal Medicine Nephrology
DX: N18.4 Chronic kidney disease, stage 4 (severe) (principal)

== ENCOUNTER 2016-07-23 23:27 | Emergency (ER) | payer OTHER ==
[~2016-07-23] VITALS: Ht 167.6 cm; Wt 76.0 kg
[~2016-07-23 23:27] MED LIST changes: -ASPI-435 PO; -CEPH500C2 PO; -DRGTP12 TD; -LACT10SO17 PO; -LATA0.5S OPB; -LORA-741 PO; -METO1TAB70 PO; -METO5TAB5 PO; -MULT-506 PO; -ONDA4TAB46 PO; -POLY335019 PO; -POTA10TA PO; -TIMO0.5S35 OPB; -TORS20TA2 PO
[2016-07-23 23:36] VITALS: O2SAT 96; Ht 167.6 cm; Wt 76.0 kg
--- NOTE | 2016-07-24 00:06 | EMERGENCY ROOM VISIT NOTE ---
History Report prepared by Francine: Odette Almeida Under the Supervision of: Dr. Marguerite Hernandez D.O. First contact with patient: 23:43 Chief Complaint: FOOD BOLUS Stated Complaint: FEELS LIKE SOMETHING IS STUCK IN ESOPHAGUS History of Present Illness The patient is a 89 year old male who presents to the Emergency Room with complaints of a constant food bolus beginning tonight. The patient states that he was eating soup tonight that had chunks in it and then took medicine with pudding so that he would be able to swallow it. He reports that the pills went down and then the pudding came back up. He notes that this also sometimes happens with water so he usually drinks only Gatorade or coffee with food. The patient reports that he tried drinking coffee tonight with no relief of his symptoms. He notes that he has not tried drinking Gatorade yet tonight to remove the food that feels stuck in his throat. The patient states that he got 2ml of morphine tonight. He reports that he has never had food stuck in his throat but has had a swallowing study done that he reports showed no peristalsis. The patient complains of regurgitation and burning after taking morphine. He notes that he is on hospice. He notes that he takes 85mg of Aspirin. Source of History: patient Onset: tonight Position: other (global) Quality: other (regurgitation) Timing: constant Modifying Factors (Worsening): other (water) Note: The patient complains of bloating that is not new and burning with morphine. Review of Systems See HPI for pertinent positives & negatives. A total of 10 systems reviewed and were otherwise negative. 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 Family History Cancer Diabetes mellitus FH: heart disease Hypertension Social History Smoking Status: Former Smoker Alcohol Use: none Drug Use: none Marital Status: Housing Status: lives with significant other Occupation Status: retired Current/Historical Medications Scheduled Aspirin (Aspirin 81), 81 MG PO DAILY Atorvastatin (Lipitor), 80 MG PO HS Calcitriol (Rocaltrol Cap), 0.25 MCG PO 3XWK Cholecalciferol (Vitamin D3), 1 CAP PO DAILY Escitalopram Oxalate (Lexapro), 10 MG PO DAILY Finasteride (Proscar), 5 MG PO Q2D Glimepiride (Glimepiride), 1 MG PO DAILY Latanoprost (Xalatan 0.005% Oph Fatuma), 1 DROPS OPB HS Lorazepam (Ativan), 0.5 MG PO BID Metolazone (Zaroxolyn), 5 MG PO 3XWK Metoprolol Succinate (Toprol Xl), 100 MG PO DAILY Multiple Vitamins W/ Minerals (Ocuvite), 1 TAB PO DAILY Multivitamin (Multivitamin), 1 TAB PO DAILY Potassium Chloride (K-Tabs), 10 MEQ PO DAILY Timolol Maleate (Ophth) (Timoptic-Xe 0.5% Oph), 1 DROPS OPB QAM Torsemide (Demadex), 40 MG PO DAILY Ursodiol (Ursodiol), 300 MG PO BID Scheduled PRN Ondansetron Hcl (Zofran), 4 MG PO Q6 PRN for Nausea Polyethylene Glycol 3350 (Miralax), 17 GM PO DAILY PRN for Constipation Allergies Coded Allergies: Adhesives (Verified Allergy, Unknown, "RED RASH AND ITCHES", 07/24/16) Morphine (Verified Adverse Reaction, Mild, headaches, 07/24/16) Physical Exam Vital Signs Date Time Temp Pulse Resp B/P Pulse Ox O2 Delivery O2 Flow Rate FiO2 07/24/16 03:28 36.5 60 20 104/54 96 Room Air 07/24/16 02:58 36.8 64 16 108/54 93 Room Air 07/24/16 02:58 36.8 64 16 108/54 94 Room Air 07/24/16 02:55 36.8 64 16 108/54 97 Room Air 07/24/16 02:45 74 15 97/52 95 Room Air 07/24/16 02:35 71 14 104/50 93 Room Air 07/24/16 02:25 65 22 98/57 98 Mask 10 07/24/16 02:17 37.0 78 20 106/61 99 Mask 10 07/23/16 23:36 36.8 78 18 109/62 96 Room Air Physical Exam HEENT: Head - normocephalic and atraumatic Pupils are equal, round, and reactive to light. Extraocular eye muscles are intact, and sclera are anicteric. Nose - moist nasal mucosa without discharge. Mouth - moist buccal mucosa. Oropharynx is nonerythematous and there is no tonsillar exudate or edema noted. Neck: Supple; no JVD, nuchal rigidity, cervical lymphadenopathy. Heart: Regular rate and rhythm. There is a normal S1 and S2 with no murmurs, clicks, or gallops appreciated. Lungs: Clear to auscultation bilaterally with no wheezes, rales, or rhonchi. Abdomen: Soft, completely nontender, nondistended, with good bowel sounds. There are no palpable pulsatile masses or hepatosplenomegaly. There is no guarding, rigidity, or rebound noted. Extremities: No evidence of cyanosis, clubbing. There are easily palpable peripheral pulses. 1+ edema in legs. Skin: warm and dry with good turgor and no rashes. Medical Decision & Procedures Laboratory Results 07/24/16 00:05 07/24/16 00:05 Test 07/24/16 00:05 07/24/16 02:24 Red Blood Count 3.07 M/uL (4.7-6.1) Mean Corpuscular Volume 95.4 fL (80-100) Mean Corpuscular Hemoglobin 31.9 pg (25-34) Mean Corpuscular Hemoglobin Concent 33.4 g/dl (32-36) RDW Standard Deviation 45.3 fL (36.4-46.3) RDW Coefficient of Variation 13.1 % (11.5-14.5) Mean Platelet Volume 9.0 fL (7.4-10.4) Anion Gap 7.0 mmol/L (3-11) Est Creatinine Clear Calc Drug Dose 16.1 ml/min Estimated GFR () 22.2 Estimated GFR (Non- 19.1 BUN/Creatinine Ratio 32.2 (10-20) Calcium Level 9.7 mg/dl (8.5-10.1) Bedside Glucose 160 mg/dl (70-99) Laboratory results per my review. ED Course 2343: Past medical records reviewed. The patient was evaluated in room B6. A complete history and physical exam was performed. On May 20 the patient had a swallowing study done which showed esophageal dysmotility. 2356: I checked the O2 saturation in the room and it is 99 percent. 2359: Watched him drink a small amount of Gatorade and he immediately regurgitated the Gatorade with additional small amounts of food. 0020: Discussed the patient's case with Dr. Vásquez. The patient will be evaluated for further management. 0036: I reevaluated and updated the patient and spoke to his . 0042: The patient will be going to the operating room for an esophageal disimpaction. Medical Decision The patient is a 89 year old male who presents to the ED with a food bolus. Differential Diagnosis includes esophageal dysmotility, esophageal spasm, esophagitis, food bolus. LABS: No leukocytosis Hemoglobin 9.8 Platelet count 129 Potassium 3.3 BUN 90 Creatinine 2.8 which is baseline for him Glucose 154 This is an 89-year-old male who presents to the emergency department for persistent vomiting. By history, the patient seems to have a food bolus, however he is tolerating his own saliva. The patient had a recent study which showed esophageal dysmotility. After eating vegetable soup with beef tonight, the patient had what seemed to be an esophageal impaction. The patient went to the OR with GI for disimpaction. Consults Time Called: 14 Consulting Physician: Dr. Vásquez Returned Call: 0020 Discussed the patient's case with Dr. Vásquez. The patient will be evaluated for further management. Impression Primary Impression: Food impaction of esophagus Scribe Attestation The scribe's documentation has been prepared under my direction and personally reviewed by me in its entirety. I confirm that the note above accurately reflects all work, treatment, procedures, and medical decision making performed by me. Departure Information Dispostion Being Evaluated By Surgeon Carlos Martinez M.D. (PCP) Patient Instructions My [facility]
[2016-07-24 00:18] LABS: HEMATOCRIT 29.3 % (42-52); MEAN CELL VOLUME 95.4 fL (80-100); MEAN CORPUSCULAR HEMOGLOBIN 31.9 pg (25-34); MEAN CORPUSCULAR HGB CONC 33.4 g/dl (32-36); PLATELET COUNT 129 K/uL (130-400); RED BLOOD COUNT 3.07 M/uL (4.7-6.1); WHITE BLOOD COUNT 7.16 K/uL (4.8-10.8)
[2016-07-24 00:36] LABS: BUN/CREATININE RATIO 32.2 (10-20); CALCIUM 9.7 mg/dl (8.5-10.1); CREATININE 2.8 mg/dl (0.60-1.40); POTASSIUM 3.3 mmol/L (3.5-5.1)
[2016-07-24] MEDS ORDERED: ACT300 PO (00:46)
[2016-07-24] MEDS ORDERED: LORA-741 PO (00:48)
[2016-07-24] MEDS ORDERED: ASPI-435 PO (00:50)
[2016-07-24] MEDS ORDERED: POTA10TA PO (00:53)
[2016-07-24] MEDS ORDERED: LATA0.5S OPB (00:54)
[2016-07-24] MEDS ORDERED: METO5TAB5 PO (00:56)
[2016-07-24] MEDS ORDERED: METO-648 PO (00:57)
[2016-07-24] MEDS ORDERED: MULT-506 PO (00:58)
[2016-07-24] MEDS ORDERED: TIMO0.5S35 OPB (00:59)
[2016-07-24] MEDS ORDERED: ONDA4TAB46 PO (01:00)
[2016-07-24] MEDS ORDERED: TIMO0.5S2 OPB (01:00)
[2016-07-24] MEDS ORDERED: POLY335019 PO (01:02)
[2016-07-24] MEDS ORDERED: TORS20TA2 PO (01:02)
[2016-07-24] MEDS ORDERED: HYDROmorphone INJ 1 MG/ML SYR IV PRN (01:30)
[2016-07-24] MEDS ORDERED: MEPERIDINE HCL 25 MG/ML CARP IV PRN (01:30)
[2016-07-24] MEDS ORDERED: EpHEDrine SULFATE INJ 50 MG/ML AMP IV PRN (01:30)
[2016-07-24] MEDS ORDERED: FENTANYL CITRATE INJ 50 MCG/1 ML 2 ML VIAL IV PRN (01:30)
[2016-07-24] MEDS ORDERED: ONDANSETRON INJ 2 MG/ML 2 ML VIAL IV PRN (01:30)
[2016-07-24] MEDS ORDERED: ATROPINE SULFATE 0.1 MG/ML 5ML SYR IV PRN (01:30)
[2016-07-24] MEDS ORDERED: LABETALOL HCL IV 5 MG/ML 20ML IV PRN (01:30)
--- NOTE | 2016-07-24 01:43 | Endo History and Physical ---
History & Physical Date of Service: Jul 24, 2016. Chief Complaint: food bolus Referring Physician: History of Present Illness 89 yo M with sensation of foreign body in throat while eating vegetable beef soup this afternoon. He still feels like food is stuck in esophagus. Past Medical History Atrial Fibrillation, Diabetes, Angioplasty/Stent, Pacemaker, Male Genitourinary Prob., Cancer, Heart Disease, CHF, Hypertension, Kidney Disease, Other, Depression Past Surgical History Hx Cardiac Surgery: Yes (PACER, STENT) Hx Abdominal Surgery: Yes (HERNIA REPAIR) Hx Post-Op Nausea and Vomiting: No Hx Cancer Surgery: Yes (RIGHT EAR, RIGHT INNER CANTHUS SQUAMOUS CELL CA) Hx Thoracic Surgery: No Hx Orthopedic: No Hx Urinary Tract Surgery: No Social History Smoking Status: Former Smoker Hx Substance Use: No Hx Alcohol Use: No Allergies Coded Allergies: Adhesives (Verified Allergy, Unknown, "RED RASH AND ITCHES", 07/24/16) Morphine (Verified Adverse Reaction, Mild, headaches, 07/24/16) Current Medications Reported Home Medications Medications Dose Route/Sig Max Daily Dose Days Date Category Dose Instructions Demadex (Torsemide) 20 Mg Tab 40 Mg PO DAILY 07/24/16 Reported Miralax (Polyethylene Glycol 3350) 1 Pow Pow 17 Gm PO DAILY PRN 07/24/16 Reported Timoptic-Xe 0.5% Oph (Timolol Maleate (Ophth)) 0.5 % Fatuma 1 Drops OPB QAM 07/24/16 Reported Zofran (Ondansetron HCl) 4 Mg Tab 4 Mg PO Q6 PRN 07/24/16 Reported Multivitamin (Multivitamins) Tab 1 Tab PO DAILY 07/24/16 Reported Toprol Xl (Metoprolol Succinate) 200 Mg Tab 100 Mg PO DAILY 07/24/16 Reported Zaroxolyn (Metolazone) 5 Mg Tab 5 Mg PO 3XWK 07/24/16 Reported MON/WED/FRI Xalatan 0.005% Oph Fatuma (Latanoprost) 0.005 % Fatuma 1 Drops OPB HS 07/24/16 Reported K-Tabs (Potassium Chloride) 10 Meq Tab 10 Meq PO DAILY 07/24/16 Reported Aspirin 81 (Aspirin) 81 Mg Tab 81 Mg PO DAILY 07/24/16 Reported Ativan (Lorazepam) 0.5 Mg Tab 0.5 Mg PO BID 4/22/17 Reported Ursodiol 300 Mg Cap 300 Mg PO BID 07/24/16 Reported Rocaltrol Cap (Calcitriol) 0.25 Mcg Cap 0.25 Mcg PO 3XWK 02/16/16 Reported Vitamin D3 (Cholecalciferol) 2,000 Unit Cap 1 Cap PO DAILY 30 02/16/16 Reported Proscar (Finasteride) 5 Mg Tab 5 Mg PO Q2D 02/16/16 Reported Glimepiride 2 Mg Tab 1 Mg PO DAILY 02/02/16 Reported 1/2 TABLET DOSE Lexapro (Escitalopram Oxalate) 20 Mg Tab 10 Mg PO DAILY 05/02/14 Reported Ocuvite (Multiple Vitamins W/ Minerals) 1 Tab Tab 1 Tab PO DAILY 12/03/13 Reported Lipitor (Atorvastatin Calcium) 80 Mg Tab 80 Mg PO HS 09/06/08 Reported Vital Signs Weight (Kilograms): 76.000 Height (Feet): 5 Height (Inches): 6.00 Date Time Temp Pulse Resp B/P Pulse Ox O2 Delivery O2 Flow Rate FiO2 07/23/16 23:36 36.8 78 18 109/62 96 Room Air Physical Exam General Appearance: no apparent distress Respiratory/Chest: Respiratory effort: no dyspnea Auscultation: breath sounds normal Cardiovascular: Heart Auscultation: RRR Assessment and Plan Plan for EGD for food bolus extraction
[2016-07-24] MEDS ORDERED: FENTANYL CITRATE INJ 50 MCG/1 ML 2 ML VIAL ONE (01:45)
[2016-07-24] MEDS ORDERED: PROPOFOL IV EMULSION 10 MG/ML 20 ML VIAL IV ONE (01:46)
[2016-07-24] MEDS ORDERED: SUCCINYLCHOLINE 100MG/5ML SYR IV ONE (01:47)
[2016-07-24] MEDS ORDERED: LIDOCAINE HCL 2% 2 ML VIAL (20MG/ML) ONE (01:47)
[2016-07-24] MEDS ORDERED: ONDANSETRON INJ 2 MG/ML 2 ML VIAL ONE (01:47)
--- NOTE | 2016-07-24 02:16 | GI REPORT ---
Procedure Date: 07/24/2016 1:21 AM Procedure: Upper GI endoscopy Indications: Foreign body in the esophagus Medicines: See the Anesthesia note for documentation of the administered medications Complications: No immediate complications. Estimated Blood Loss: Estimated blood loss: none. Procedure: Pre-Anesthesia Assessment: - ASA Grade Assessment: IV - A patient with severe systemic disease that is a constant threat to life. After obtaining informed consent, the endoscope was passed under direct vision. Throughout the procedure, the patient's blood pressure, pulse, and oxygen saturations were monitored continuously. The Scope was introduced through the mouth, and advanced to the antrum of the stomach. The upper GI endoscopy was accomplished without difficulty. The patient tolerated the procedure well. Findings: There was a moderately tight ring in the lower esophagus. There was no retained food in the esophagus. There was food in the body of the stomach. Impression: Ring in lower esophagus. No food bolus. Recommendation: - Discharge patient to home. Pureed diet. Galina Erazo MD 07/24/2016 2:14:45 AM This report has been signed electronically. Note Initiated On: 07/24/2016 1:21 AM I attest to the content of the Intraoperative Record and orders documented therein, exceptions below
--- NOTE | 2016-07-24 02:17 | Discharge Instructions ---
Endoscopy Patient Instructions Date / Procedure(s) Performed Jul 24, 2016. EGD Allergy Information Coded Allergies: Adhesives (Verified Allergy, Unknown, "RED RASH AND ITCHES", 07/24/16) Morphine (Verified Adverse Reaction, Mild, headaches, 07/24/16) Discharge Date / Findings Jul 24, 2016. Ring in lower esophagus; no food bolus noted Provider Instructions Activity Restrictions - No exercising or heavy lifting for 24 hours. - Do not drink alcohol the day of the procedure. - Do not drive a car or operate machinery until the day after the procedure. - Do not make any important decisions or sign important papers in 24 hours after the procedure. Following Day: - Return to full activity which may include returning to work/school. Diet Start your diet with liquids and light foods (jello, soup, juice, toast). Then eat your usual diet if not nauseated. Treatment For Common After Affects For mild abdominal pain, bloating, or excessive gas: - Rest - Eat lightly - Lie on right side Follow-Up Information Follow-up with as scheduled Anesthesia Information What You Should Know You have had a procedure that required some medicine to reduce anxiety and discomfort. This treatment is called moderate sedation. After receiving the treatment, you may be sleepy, but you will be able to breathe on your own. The effects of the treatment may last for several hours. Follow these instructions along with Activity/Diet recommendations noted above: * Do NOT do anything where dizziness or clumsiness would be dangerous. * Rest quietly at home today, then you can be up and about tomorrow. * Have a responsible person stay with you the rest of today. * You may have had an I.V. today. If so, you may take the dressing off later today. Recommendations Call your doctor if: * Trouble breathing * Continuous vomiting for more than 24 hours * Temperature above 101 degrees * Severe abdominal pain or bloating * Pain not relieved by pain medicine ordered * There is increased drainage or redness from any incision * A large amount of rectal bleeding greater than 2-3 tablespoons. (If you had a polyp/s removed or have hemorrhoids, a small amount of blood - from the rectum is to be expected.) * You have any unanswered questions or concerns. IN THE EVENT OF A SERIOUS EMERGENCY, GO TO THE NEAREST EMERGENCY ROOM Your discharge instructions were prepared by provider Irphan E Gaslightwal. Patient Instructions Signature Page Malachi Alcaraz Patient (or Guardian) Signature/Date: I have read and understand the instructions given to me by my caregivers. Caregiver/RN/Doctor Signature/Date: The above-named patient and/or guardian has received patient instructions on this date. + Original Patient Signature Page (only) stays with chart. Please make copy for patient.
[2016-07-24 02:58] VITALS: BP 108/54; PULSE 64; TEMP 36.8; O2SAT 93
--- NOTE | 2016-07-24 03:16 | Anesthesiology Progress Note ---
Anesthesia Post Op Note Date & Time Jul 24, 2016 at 03:16 Vital Signs Pain Intensity: 0 Vital Signs Past 12 Hours Date Time Temp Pulse Resp B/P Pulse Ox O2 Delivery O2 Flow Rate FiO2 07/24/16 02:58 36.8 64 16 108/54 93 Room Air 07/24/16 02:58 36.8 64 16 108/54 94 Room Air 07/24/16 02:55 36.8 64 16 108/54 97 Room Air 07/24/16 02:45 74 15 97/52 95 Room Air 07/24/16 02:35 71 14 104/50 93 Room Air 07/24/16 02:25 65 22 98/57 98 Mask 10 07/24/16 02:17 37.0 78 20 106/61 99 Mask 10 07/23/16 23:36 36.8 78 18 109/62 96 Room Air Notes Mental Status: alert / awake / arousable, participated in evaluation Pt Amnestic to Procedure: Yes Nausea / Vomiting: adequately controlled Pain: adequately controlled Airway Patency, RR, SpO2: stable & adequate BP & HR: stable & adequate Hydration State: stable & adequate Anesthetic Complications: no major complications apparent
[2016-07-24 03:28] VITALS: BP 104/54; PULSE 60; TEMP 36.5; O2SAT 96
[2016-09-21] MEDS ORDERED: DRGTP12 TD (09:07)
== END 2016-07-24 00:49 | disposition still patient (30) ==
LOC: C.EDB 23:28
DX: K22.2 Esophageal obstruction (principal); Z87.891 Personal history of nicotine dependence; E11.9 Type 2 diabetes mellitus without complications; I48.91 Unspecified atrial fibrillation; Z95.0 Presence of cardiac pacemaker; I13.0 Hypertensive heart and chronic kidney disease with heart failure and stage 1 through stage 4 chronic kidney disease, or unspecified chronic kidney disease; N18.4 Chronic kidney disease, stage 4 (severe)

== ENCOUNTER → 2016-08-30 | Outpatient (CLI) | payer OTHER ==
[~2016-08-30] MED LIST changes: +ASPI-435 PO; -ASPI81TA21 PO; -ATV5 PO; +CEPH500C2 PO; -DMD20 PO; +DRGTP12 TD; -FLUO5CRE TOP; +LACT10SO17 PO; -LATA0.009 OPB; +LATA0.5S OPB; +LORA-741 PO; -MECL1TAB42 PO; +METO-648 PO; +METO5TAB5 PO; +MULT-506 PO; -NUTR-7 PO; -ONDA4TAB4 PO; +ONDA4TAB46 PO; +POLY335019 PO; +POTA10TA PO; +TORS20TA2 PO; -TPRSR50 PO
[2016-08-31 18:25] LABS: URINE APPEARANCE CLEAR (CLEAR); URINE BILIRUBIN NEG (NEG); URINE COLOR YELLOW; URINE NITRITE NEG (NEG); URINE PH 5.5 (4.5-7.5); URINE SPECIFIC GRAVITY 1.013 (1.000-1.030); UROBILINOGEN NEG (NEG); ZZUR CULT IF INDIC CLEAN CATCH NO
[2016-08-31 18:32] LABS: MANUAL MICROSCOPIC REQUIRED? NO; REVIEW REQ? YES
== END | disposition home or self-care (01) ==
LOC: C.LABSPEC 17:40
PROVIDERS: ATTEND Internal Medicine
DX: R39.9 Unspecified symptoms and signs involving the genitourinary system (principal)

== ENCOUNTER 2016-09-15 21:47 | Emergency (ER) | payer OTHER ==
[~2016-09-15] VITALS: Ht 167.6 cm; Wt 75.0 kg
[~2016-09-15 21:47] MED LIST changes: -CEPH500C2 PO; -DRGTP12 TD; -LACT10SO17 PO
[2016-09-15 21:59] VITALS: TEMP 36.7; Ht 167.6 cm; Wt 75.0 kg
--- NOTE | 2016-09-15 23:31 | EMERGENCY ROOM VISIT NOTE ---
History Report prepared by Francine: Yesi Yan Under the Supervision of: Dr. Marguerite Hernandez D.O. First contact with patient: 23:07 Chief Complaint: SWELLING TO EXTREMITY Stated Complaint: B/L FEET SWELLING History of Present Illness The patient is a 89 year old male who presents to the Emergency Room with complaints of severe swelling of bilateral feet starting yesterday. The swelling is worse on the right foot than the left. He has worsening pain with palpation to the top of right foot. He also has erythema on the top of the right foot. He is unable to ambulate as normal. His feet no longer fit in his shoes due to the swelling. He also complains of abdominal distention. He did not have any recent injuries. He denies any history of cellulitis. He has a history of congestive heart failure and kidney failure. He normally has intermittent bilateral lower extremity swelling. He reports chronic shortness of breath. He wears oxygen at home. He reports a normal appetite and a normal fluid intake. About a month ago, his Torsemide dose was increased to 40 mg a day. The patient denies abdominal pain, pain in calves, or any other complaints. Source of History: patient Onset: yesterday Position: foot (bilateral) Symptom Intensity: severe Quality: other (swelling) Associated Symptoms: + SOB, No abdominal pain Review of Systems See HPI for pertinent positives & negatives. A total of 10 systems reviewed and were otherwise negative. 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 Family History Cancer Diabetes mellitus FH: heart disease Hypertension Social History Smoking Status: Former Smoker Alcohol Use: none Drug Use: none Marital Status: Housing Status: lives with significant other Occupation Status: retired Current/Historical Medications Scheduled Aspirin (Aspirin 81), 81 MG PO DAILY Atorvastatin (Lipitor), 80 MG PO HS Calcitriol (Rocaltrol Cap), 0.25 MCG PO 3XWK Cephalexin Monohydrate (Keflex), 500 MG PO TID Cholecalciferol (Vitamin D3), 2,000 UNITS PO DAILY Escitalopram Oxalate (Lexapro), 10 MG PO DAILY Finasteride (Proscar), 5 MG PO Q2D Glimepiride (Glimepiride), 1 MG PO DAILY Lactulose (Chronulac), 1 TBS PO DAILY Latanoprost (Xalatan 0.005% Oph Fatuma), 1 DROPS OPB HS Lorazepam (Ativan), 0.5 MG PO BID Metoprolol Succinate (Toprol Xl), 100 MG PO DAILY Multiple Vitamins W/ Minerals (Ocuvite), 1 TAB PO DAILY Timolol Maleate (Ophth) (Timoptic-Xe 0.5% Oph), 1 DROPS OPB QAM Torsemide (Demadex), 40 MG PO BID Ursodiol (Ursodiol), 300 MG PO BID Allergies Coded Allergies: Adhesives (Verified Allergy, Unknown, "RED RASH AND ITCHES", 07/24/16) Morphine (Verified Adverse Reaction, Mild, headaches, 07/24/16) Physical Exam Vital Signs Date Time Temp Pulse Resp B/P (MAP) Pulse Ox O2 Delivery O2 Flow Rate FiO2 09/16/16 06:00 64 16 98/55 98 Nasal Cannula 3.0 09/16/16 04:01 64 18 118/52 100 Nasal Cannula 3.0 09/16/16 03:12 62 16 112/64 100 3.0 09/16/16 02:30 67 20 118/61 98 Nasal Cannula 3.0 09/16/16 00:33 73 18 105/60 100 Nasal Cannula 3.0 09/15/16 23:19 71 22 125/69 100 Nasal Cannula 3.0 09/15/16 21:59 36.7 74 20 115/60 96 Room Air Physical Exam HEENT: Head - normocephalic and atraumatic Pupils are equal, round, and reactive to light. Extraocular eye muscles are intact, and sclera are anicteric. Nose - moist nasal mucosa without discharge. Mouth - extremely dry / Oropharynx is nonerythematous and there is no tonsillar exudate or edema noted. Neck: Supple; no JVD, nuchal rigidity, cervical lymphadenopathy. Heart: Regular rate and rhythm. There is a normal S1 and S2 with no murmurs, clicks, or gallops appreciated. Lungs: Clear to auscultation bilaterally with no wheezes, rales, or rhonchi. Abdomen: Soft, completely nontender, nondistended, with good bowel sounds. There are no palpable pulsatile masses or hepatosplenomegaly. There is no guarding, rigidity, or rebound noted. Extremities: No evidence of cyanosis, clubbing. There are easily palpable peripheral pulses. 2+ bilateral lower extremity edema, no obvious skin breakdown. Top of right foot is erythematous. Painful to touch on the midfoot on the right. Skin: warm and dry with good turgor and no rashes. Medical Decision & Procedures ER Provider Diagnostic Interpretation: X-ray results as stated below per interpretation by me: FOOT X-RAY No obvious fracture or osteomyelitis. Laboratory Results 09/15/16 23:25 Red Blood Count 2.87, Mean Corpuscular Volume 94.4, Mean Corpuscular Hemoglobin 31.0, Mean Corpuscular Hemoglobin Concent 32.8, Mean Platelet Volume 8.7, Neutrophils (%) (Auto) 73.6, Lymphocytes (%) (Auto) 10.6, Monocytes (%) (Auto) 13.0, Eosinophils (%) (Auto) 2.1, Basophils (%) (Auto) 0.6, Neutrophils # (Auto ) 5.00, Lymphocytes # (Auto) 0.72, Monocytes # (Auto) 0.88, Eosinophils # (Auto ) 0.14, Basophils # (Auto) 0.04 09/15/16 23:25 Test 09/15/16 23:25 White Blood Count 6.79 K/uL (4.8-10.8) Red Blood Count 2.87 M/uL (4.7-6.1) Hemoglobin 8.9 g/dL (14.0-18.0) Hematocrit 27.1 % (42-52) Mean Corpuscular Volume 94.4 fL (80-100) Mean Corpuscular Hemoglobin 31.0 pg (25-34) Mean Corpuscular Hemoglobin Concent 32.8 g/dl (32-36) Platelet Count 141 K/uL (130-400) Mean Platelet Volume 8.7 fL (7.4-10.4) Neutrophils (%) (Auto) 73.6 % Lymphocytes (%) (Auto) 10.6 % Monocytes (%) (Auto) 13.0 % Eosinophils (%) (Auto) 2.1 % Basophils (%) (Auto) 0.6 % Neutrophils # (Auto) 5.00 K/uL (1.4-6.5) Lymphocytes # (Auto) 0.72 K/uL (1.2-3.4) Monocytes # (Auto) 0.88 K/uL (0.11-0.59) Eosinophils # (Auto) 0.14 K/uL (0-0.5) Basophils # (Auto) 0.04 K/uL (0-0.2) RDW Standard Deviation 46.1 fL (36.4-46.3) RDW Coefficient of Variation 13.3 % (11.5-14.5) Immature Granulocyte % (Auto) 0.1 % Immature Granulocyte # (Auto) 0.01 K/uL (0.00-0.02) Red Blood Cell Morphology Unremarkable Anion Gap 9.0 mmol/L (3-11) Est Creatinine Clear Calc Drug Dose 18.8 ml/min Estimated GFR () 26.7 Estimated GFR (Non- 23.1 BUN/Creatinine Ratio 27.0 (10-20) Calcium Level 9.9 mg/dl (8.5-10.1) Total Bilirubin 0.5 mg/dl (0.2-1) Aspartate Amino Transf (AST/SGOT) 11 U/L (15-37) Alanine Aminotransferase (ALT/SGPT) 20 U/L (12-78) Alkaline Phosphatase 58 U/L (45-117) Total Protein 7.7 gm/dl (6.4-8.2) Albumin 3.8 gm/dl (3.4-5.0) Globulin 3.9 gm/dl (2.5-4.0) Albumin/Globulin Ratio 1.0 (0.9-2) Laboratory results per my review. Medications Administered Medications (Trade) Dose Ordered Sig/Angus Route Start Time Stop Time Status Last Admin Dose Admin Potassium Chloride (Kcl 10 Meq / Wtr) 10 meq NOW STAT IV 09/16/16 01:16 09/16/16 01:18 DC 09/16/16 01:29 10 MEQ Sodium Chloride 1,000 ml @ 125 mls/hr Q8H STAT IV 09/16/16 01:16 09/16/16 09:15 09/16/16 01:29 125 MLS/HR Ceftriaxone Sodium (Rocephin Inj) 1 gm NOW STAT IV 09/16/16 02:04 09/16/16 02:06 DC 09/16/16 03:56 1 GM Potassium Chloride (Kcl 10 Meq / Wtr) 10 meq NOW STAT IV 09/16/16 02:04 09/16/16 02:06 DC 09/16/16 03:56 10 MEQ Procedure Sodium Chloride 1000 ml @ 125 mls/hr IV, Potassium Chloride 20 meq IV ECG Indication: SOB/dyspnea, other (Bilateral lower extremity swelling) Rate (beats per minute): 66 Rhythm: other (Paced rhythm) Findings: no acute ischemic change, no ectopy ED Course 230: Past medical records reviewed. The patient was evaluated in room C03. A complete history and physical exam was performed. Laboratory studies were drawn as above. 0030: Case management is going to speak with Hospice about the possibility of hospitalizing the patient for observation to receive potassium. 0110: I updated the patient. 0116: Sodium Chloride 1000 ml @ 125 mls/hr IV, Potassium Chloride 10 meq IV 0204: Potassium Chloride 10 meq IV, Rocephin Inj 1 gm IV 0311: The patient is currently sleeping and resting comfortably. An additional 10 mEq of potassium was administered IV. 0615: Upon reevaluation, the patient is doing well. I discussed findings and results with him. He verbalized agreement of the treatment plan. He was discharged home. Medical Decision This patient presents to the Emergency Room with the chief complaint of bilateral feet swelling. Differential diagnosis includes but is not limited to cellulitis, gout, exacerbation of heart failure. His labs showed no leucocytosis , hemoglobin of 8.9 which is down from 9.8 in July 2016, patellate count of 141 , potassium 2.4, BUN 65, creatinine 2.4, glucose 100, normal LFTs. I attest that I have personally reviewed the patient's current medication list. Patient was found to have normal blood pressure on screening and does not require follow-up. This is an 89-year-old male patient who presents to the emergency department with swelling to both of his feet and pain in the right foot. There was some evidence of erythema noted to the top of the right foot concerning for cellulitis. I do not believe this is gout as it crosses over the entire midfoot. On laboratory testing, the patient was noted to be significantly hypokalemic and slightly anemic. His creatinine was 2.4 which has improved since August when it was 2.8. The patient was given a dose of IV Rocephin for what appears to be some cellulitis to the top of the right foot. He will be discharged to home on hospice. He will take Keflex 3 times a day over the next 7 days. He was instructed to double his dose of potassium by mouth for the next 3 days and have the level rechecked at the beginning of next week. Impression Primary Impression: Hypokalemia Additional Impressions: Cellulitis of right foot Anemia Scribe Attestation The scribe's documentation has been prepared under my direction and personally reviewed by me in its entirety. I confirm that the note above accurately reflects all work, treatment, procedures, and medical decision making performed by me. Departure Information Dispostion Home / Self-Care Prescriptions Cephalexin Monohydrate (KEFLEX) 500 Mg Cap 500 MG PO TID, #21 CAP Prov: Marguerite Hernandez DMimi. 09/16/16 Referrals Carlos Nunez M.D. (PCP) Forms HOME CARE DOCUMENTATION FORM, IMPORTANT VISIT INFORMATION, WORK / SCHOOL INSTRUCTIONS Patient Instructions Cellulitis Dc, Hypokalemia Yosvany, My [facility] Additional Instructions Pleae double your dose of potassium over next 3 days Have the potassium level rechecked next week. Take Keflex - every 6 hours for a week Problem Qualifiers
[2016-09-15 23:36] LABS: BASO % 0.6 %; BASO ABS # 0.04 K/uL (0-0.2); EOS % 2.1 %; HEMATOCRIT 27.1 % (42-52); IG% 0.1 %; LYMPH % 10.6 %; LYMPH ABS # 0.72 K/uL (1.2-3.4); MEAN CELL VOLUME 94.4 fL (80-100); MEAN CORPUSCULAR HGB CONC 32.8 g/dl (32-36); MEAN PLATELET VOLUME 8.7 fL (7.4-10.4); NEUT % 73.6 %; PLATELET COUNT 141 K/uL (130-400); RED BLOOD COUNT 2.87 M/uL (4.7-6.1); WHITE BLOOD COUNT 6.79 K/uL (4.8-10.8)
[2016-09-15 23:54] LABS: COMPLETE YES
[2016-09-16] MEDS ORDERED: LACT10SO17 PO (00:15)
[2016-09-16 00:22] LABS: CALCIUM 9.9 mg/dl (8.5-10.1); CREATININE 2.4 mg/dl (0.60-1.40); POTASSIUM 2.4 mmol/L (3.5-5.1)
[2016-09-16] MEDS ORDERED: POTASSIUM CHLORIDE 10 MEQ / 100ML WTR IV STA ×2 (01:16→02:04)
[2016-09-16] MEDS ORDERED: SODIUM CHLORIDE 0.9% 1000ML 1,000 ML IV STA (01:16)
[2016-09-16] MEDS ORDERED: CEFTRIAXONE SOD INJ 1 GM ADDVIAL IV STA (02:04)
[2016-09-16] MEDS ORDERED: CEPH500C2 PO (03:59)
[2016-09-16 06:29] VITALS: BP 108/57; PULSE 66; O2SAT 99
--- NOTE | 2016-09-16 08:25 | DIAGNOSTIC IMAGING REPORT ---
RIGHT FOOT 3 VIEWS HISTORY: right mid-foot pain Right COMPARISON: None. FINDINGS: There is no fracture or dislocation. Dorsal soft tissue swelling. Vascular calcifications are noted. The Lisfranc joint is intact. 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 Moderate osteoarthritis at the DIP and PIP joints. No radiopaque foreign bodies. IMPRESSION: No fractures within the right foot. Dorsal soft tissue swelling. Degenerative changes as described above. Electronically signed by: Golden Beckett M.D. 09/16/2016 8:24 AM Dictated Date/Time: 09/16/2016 8:23 AM
[2016-09-21] MEDS ORDERED: DRGTP12 TD (09:07)
== END 2016-09-16 06:31 | disposition home or self-care (01) ==
LOC: C.EDB 21:49
DX: L03.115 Cellulitis of right lower limb (principal); E87.6 Hypokalemia; D64.9 Anemia, unspecified; I48.91 Unspecified atrial fibrillation; N18.4 Chronic kidney disease, stage 4 (severe); E11.9 Type 2 diabetes mellitus without complications; I50.9 Heart failure, unspecified; Z95.0 Presence of cardiac pacemaker; Z87.440 Personal history of urinary (tract) infections; Z98.61 Coronary angioplasty status; Z87.891 Personal history of nicotine dependence; Z79.82 Long term (current) use of aspirin; Z79.899 Other long term (current) drug therapy; Z88.5 Allergy status to narcotic agent; Z91.09 Other allergy status, other than to drugs and biological substances; Z80.9 Family history of malignant neoplasm, unspecified; Z83.3 Family history of diabetes mellitus; Z82.49 Family history of ischemic heart disease and other diseases of the circulatory system

== ENCOUNTER 2016-09-19 03:40 | Observation (INO) | payer OTHER ==
[~2016-09-19] VITALS: Ht 167.6 cm; Wt 74.1 kg
[~2016-09-19 03:40] MED LIST changes: +CEPH500C2 PO; +LACT10SO17 PO; -METO5TAB5 PO; -MULT-506 PO; -ONDA4TAB46 PO; -POLY335019 PO; -POTA10TA PO
--- NOTE | 2016-09-19 03:57 | EMERGENCY ROOM VISIT NOTE ---
History Report prepared by Francine: Kassi Walton Under the Supervision of: Dr. Silvestre Fish M.D. First contact with patient: 03:50 Chief Complaint: FALL Stated Complaint: FELL History of Present Illness The patient is a 89 year old male who presents to the Emergency Room with complaints of back pain from a fall this morning. He rates his back pain at a 7 /10. The patient states that he got up from his chair to go to his walker and fell. Notes landing on his buttocks and then hitting his head when he fell. The patient is in hospice for heart and kidney failure. No medications prior to arrival. Unable to ambulate due to pain nor even sit up. Rest makes better. Movement makes acutely worse. No previous back issues. notes she talked to hospice nurse who advised they go to hospital for treatment. Source of History: patient Onset: this morning Position: back (lower) Symptom Intensity: rated at a 7/10 Quality: other (fall) Review of Systems See HPI for pertinent positives & negatives. A total of 10 systems reviewed and were otherwise negative. 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 Family History Cancer Diabetes mellitus FH: heart disease Hypertension Social History Smoking Status: Former Smoker Alcohol Use: none Drug Use: none Marital Status: Housing Status: lives with significant other Occupation Status: retired Current/Historical Medications Scheduled Aspirin (Aspirin 81), 81 MG PO DAILY Atorvastatin (Lipitor), 80 MG PO HS Calcitriol (Rocaltrol Cap), 0.25 MCG PO 3XWK Cephalexin Monohydrate (Keflex), 500 MG PO TID Cholecalciferol (Vitamin D3), 2,000 UNITS PO DAILY Escitalopram Oxalate (Lexapro), 10 MG PO DAILY Finasteride (Proscar), 5 MG PO Q2D Glimepiride (Glimepiride), 1 MG PO DAILY Lactulose (Chronulac), 1 TBS PO DAILY Latanoprost (Xalatan 0.005% Oph Fatuma), 1 DROPS OPB HS Lorazepam (Ativan), 0.5 MG PO BID Metoprolol Succinate (Toprol Xl), 100 MG PO DAILY Multiple Vitamins W/ Minerals (Ocuvite), 1 TAB PO DAILY Timolol Maleate (Ophth) (Timoptic-Xe 0.5% Oph), 1 DROPS OPB QAM Torsemide (Demadex), 40 MG PO BID Ursodiol (Ursodiol), 300 MG PO BID Allergies Coded Allergies: Adhesives (Verified Allergy, Unknown, "RED RASH AND ITCHES", 09/19/16) Morphine (Verified Adverse Reaction, Mild, headaches, 09/19/16) Physical Exam Vital Signs Date Time Temp Pulse Resp B/P (MAP) Pulse Ox O2 Delivery O2 Flow Rate FiO2 09/19/16 08:00 86 115/56 100 Room Air 09/19/16 06:29 82 20 127/66 98 Room Air 09/19/16 05:36 79 20 122/60 100 Nasal Cannula 3.0 09/19/16 05:27 96 Nasal Cannula 3.0 09/19/16 05:02 77 18 97 Room Air 09/19/16 03:43 36.6 86 18 118/67 96 Room Air Physical Exam GENERAL: Patient is elderly, chronically unwell, and in moderate distress. HEENT: Contusion and abrasion over left posterior scalp, normocephalic atraumatic, mucous membranes moist, no nasal congestion, no scleral icterus. NECK: No stridor, no adenopathy, no meningismus, trachea is midline. LUNGS: No dyspnea. Clear to auscultation and equal bilaterally. No wheeze, no rhonchi. HEART: Regular rate and rhythm. No rubs, gallops appreciated. Systolic murmur. Pacemaker in right upper chest. ABDOMEN: Soft, nontender, bowel sounds positive, no masses appreciated, no peritonitis. BACK: No midline tenderness, no CVA tenderness. Severe tenderness over bilateral lumbar spine. EXTREMITIES: Edema (chronic) bilateral legs. Normal motion all extremities, no cyanosis. NEUROLOGIC: Alert and oriented, no acute motor or sensory deficits, no focal weakness, cranial nerves grossly intact. SKIN: Mild erythema/bruising over top right food otherwise No rash, no jaundice , no diaphoresis. Medical Decision & Procedures ER Provider Diagnostic Interpretation: CT results as stated below per interpretation by me and the radiologist: CT HEAD: No acute intracranial abnormality. No significant change since 06/07/2013. CT results as stated below per interpretation by me and the radiologist: CT L SPINE: No acute osseous abnormalities. Laboratory Results 09/19/16 04:00 Red Blood Count 2.70, Mean Corpuscular Volume 95.6, Mean Corpuscular Hemoglobin 31.5, Mean Corpuscular Hemoglobin Concent 32.9, Mean Platelet Volume 8.9, Neutrophils (%) (Auto) 81.4, Lymphocytes (%) (Auto) 7.9, Monocytes (%) (Auto) 8.7, Eosinophils (%) (Auto) 1.4, Basophils (%) (Auto) 0.3, Neutrophils # (Auto) 5.98, Lymphocytes # (Auto) 0.58, Monocytes # (Auto) 0.64, Eosinophils # (Auto) 0.10, Basophils # (Auto) 0.02 09/19/16 04:00 Test 09/19/16 04:00 White Blood Count 7.34 K/uL (4.8-10.8) Red Blood Count 2.70 M/uL (4.7-6.1) Hemoglobin 8.5 g/dL (14.0-18.0) Hematocrit 25.8 % (42-52) Mean Corpuscular Volume 95.6 fL (80-100) Mean Corpuscular Hemoglobin 31.5 pg (25-34) Mean Corpuscular Hemoglobin Concent 32.9 g/dl (32-36) Platelet Count 130 K/uL (130-400) Mean Platelet Volume 8.9 fL (7.4-10.4) Neutrophils (%) (Auto) 81.4 % Lymphocytes (%) (Auto) 7.9 % Monocytes (%) (Auto) 8.7 % Eosinophils (%) (Auto) 1.4 % Basophils (%) (Auto) 0.3 % Neutrophils # (Auto) 5.98 K/uL (1.4-6.5) Lymphocytes # (Auto) 0.58 K/uL (1.2-3.4) Monocytes # (Auto) 0.64 K/uL (0.11-0.59) Eosinophils # (Auto) 0.10 K/uL (0-0.5) Basophils # (Auto) 0.02 K/uL (0-0.2) RDW Standard Deviation 47.1 fL (36.4-46.3) RDW Coefficient of Variation 13.4 % (11.5-14.5) Immature Granulocyte % (Auto) 0.3 % Immature Granulocyte # (Auto) 0.02 K/uL (0.00-0.02) Anion Gap 8.0 mmol/L (3-11) Est Creatinine Clear Calc Drug Dose 19.6 ml/min Estimated GFR () 28.1 Estimated GFR (Non- 24.3 BUN/Creatinine Ratio 29.2 (10-20) Calcium Level 9.2 mg/dl (8.5-10.1) Laboratory results as reviewed by me. Medications Administered Medications (Trade) Dose Ordered Sig/Angus Route Start Time Stop Time Status Last Admin Dose Admin Fentanyl Citrate (Fentanyl Inj) 25 mcg NOW ONCE IV 09/19/16 04:00 09/19/16 04:01 DC 09/19/16 04:10 25 MCG Hydromorphone HCl (Dilaudid Inj) 0.5 mg NOW STAT IV 09/19/16 05:28 09/19/16 05:29 DC 09/19/16 05:34 0.5 MG ED Course 0353: The patient was evaluated in room A9. A complete history and physical exam was performed. 0400: Ordered Fentanyl Citrate 24 mcg IV. 0443: The patient states that his back pain has improved with pain medication. Awaiting CT report. 0522: The patient was sleeping. I attempted to have him sit up but he was in severe pain. He was agreeable to another dose of pain medicine. 0528: Ordered Dilaudid Inj 0.5 mg IV. 0620: The patient is able to sit up but has significant pain doing so. He will see if can ambulate. 0644: The patient is unable to ambulate. Case management is going to get involved and figure out how hospice wants to proceed. Medical Decision Differentials include: fracture, dislocation, and head injury amongst others. Blood pressure screening: Patient was found to have normal blood pressure on screening and does not require follow-up. Medication Reconciliation: I attest that I have personally reviewed the patient 's current medication list. 89 yr old male who is on hospice care for his CHF and Renal failure arrives after fall this evening while not using his walker. Primary issue is low back pain, though secondary is posterior head injury. Recently in ED for separate issues of right foot cellulitis which is improving. He has severe TTP of low back without acute step offs nor neuro deficits. He has small contusion to posterior scalp. CT imaging with no acute ICH, though there is evidence (on repeat CT read) of L1 endplate fracture. Patient given IV fentanyl with improvement though mild hypoxia but uses O2 at home. Given IV dilaudid with vast improvement in his pain, though still unable to ambulate without severe pain. In fact with Dilaudid he falls asleep easily and I am concerned much more narcotic and he would be obtunded. He is completely unable to ambulate due to his pain. We discussed with his hospice care and they are unable to care for him in current state and advised bringing him in to hospital. Discussed with hospitalist for further evaluation/monitoring. Basic labs without acute changes. Impression Primary Impression: Lumbar vertebral fracture Additional Impressions: Intractable back pain Fall Head injury, closed Hospice care Scribe Attestation The scribe's documentation has been prepared under my direction and personally reviewed by me in its entirety. I confirm that the note above accurately reflects all work, treatment, procedures, and medical decision making performed by me. Departure Information Dispostion Being Evaluated By Hospitalist Referrals Carlos Nunez M.D. (PCP) Patient Instructions My [facility] Problem Qualifiers
[2016-09-19] MEDS ORDERED: FENTANYL CITRATE INJ 50 MCG/1 ML 2 ML VIAL IV ONE (04:00)
[2016-09-19 04:15] LABS: BASO % 0.3 %; BASO ABS # 0.02 K/uL (0-0.2); EOS % 1.4 %; HEMATOCRIT 25.8 % (42-52); IG% 0.3 %; LYMPH % 7.9 %; LYMPH ABS # 0.58 K/uL (1.2-3.4); MEAN CELL VOLUME 95.6 fL (80-100); MEAN CORPUSCULAR HEMOGLOBIN 31.5 pg (25-34); MEAN CORPUSCULAR HGB CONC 32.9 g/dl (32-36); MEAN PLATELET VOLUME 8.9 fL (7.4-10.4); MONO % 8.7 %; NEUT % 81.4 %; PLATELET COUNT 130 K/uL (130-400); WHITE BLOOD COUNT 7.34 K/uL (4.8-10.8)
[2016-09-19 04:31] LABS: BUN/CREATININE RATIO 29.2 (10-20); CALCIUM 9.2 mg/dl (8.5-10.1); CREATININE 2.3 mg/dl (0.60-1.40); POTASSIUM 3.4 mmol/L (3.5-5.1)
[2016-09-19 04:42] LABS: COMPLETE YES
[2016-09-19] MEDS ORDERED: HYDROmorphone INJ 0.5 MG/0.5 ML SYR IV STA (05:28)
--- NOTE | 2016-09-19 07:09 | DIAGNOSTIC IMAGING REPORT ---
HEAD CT NONCONTRAST CT DOSE: 921.40 mGy.cm HISTORY: fall posterior head injury TECHNIQUE: Multiaxial CT images of the head were performed without the use of intravenous contrast. Automated exposure control was utilized for this study. Comparison: Head CT 06/27/2013. Findings: The paranasal sinuses and mastoid air cells are clear. The calvarium and skull base are intact. There is no mass, hematoma, midline shift, acute infarct. White matter hypodensity is nonspecific but suggestive of microvascular ischemic change. The ventricles and sulci demonstrate mild age-related involutional changes. Impression: No significant change compared to the prior study. No acute intracranial abnormality. Electronically signed by: Golden Beckett M.D. 09/19/2016 7:07 AM Dictated Date/Time: 09/19/2016 7:05 AM
--- NOTE | 2016-09-19 07:14 | DIAGNOSTIC IMAGING REPORT ---
LUMBAR SPINE CT CT DOSE: 630.63 mGy.cm HISTORY: fall, low back injury TECHNIQUE: Multiaxial CT images of the lumbar spine were performed and reformatted in the sagittal and coronal plane without the use of contrast. COMPARISON: None. FINDINGS: No fractures. No subluxation. Paraspinal soft tissues are unremarkable. Severe disc space narrowing at L2-L3, L3-L4, L4-L5, and L5-S1. Moderate facet osteoarthritis within the lower lumbar spine. Mild levoscoliosis which could be positional. Best seen on coronal image 24 there is a subtle cortical step off within the superior endplate of the L1 vertebral body. This is consistent with a nondisplaced compression fracture. The sacrum is intact. IMPRESSION: Nondepressed superior endplate fracture at L1. Electronically signed by: Golden Beckett M.D. 09/19/2016 7:12 AM Dictated Date/Time: 09/19/2016 7:08 AM
[2016-09-19] MEDS ORDERED: OXYCODONE HCL IR 5 MG TAB (IMMEDIATE RELEASE) PO PRN (08:15)
[2016-09-19] MEDS ORDERED: ENOXAPARIN 40 MG/0.4 ML SYR SQ SCH (08:15)
[2016-09-19] MEDS ORDERED: LORAZEPAM 2 MG/ML 1 ML VIAL IV PRN ×2 (08:15)
[2016-09-19] MEDS ORDERED: ONDANSETRON INJ 2 MG/ML 2 ML VIAL IV PRN (08:15)
[2016-09-19] MEDS ORDERED: ALUMINUM/MAGNESIUM/SIMETH (MAALOX MAX) 30 ML UDC PO PRN (08:15)
[2016-09-19] MEDS ORDERED: HYDROmorphone INJ 1 MG/ML SYR IV PRN (08:15)
[2016-09-19] MEDS ORDERED: IV FLUIDS COMPLETED PRN (08:30)
--- NOTE | 2016-09-19 08:45 | History and Physical ---
History & Physical Date & Time of Service: Sep 19, 2016 at 08:38 Chief Complaint: FELL Primary Care Physician: Carlos Nunez M.D. History of Present Illness this pt had a ground level fall at home this am, he states he was getting up from sleeping in a recliner to use the bathroom and remembers reaching for his walker then, due to being tired, fell to the ground, he has severe lower back pain 10/10 sharp and non radiating, exacerbated by movement and confirmed to be L1 non depressed fracture seen on CT. His pain was not controlled in ER and the patient cannot ambulate to leave due to pain. There is no decreased strength or sensation, nor bowel or bladder changes when laying still in litter. Pt was initiated on keflex for Le cellulitis by the ER 4 days ago with great improvement of foot cellulitis according to family This pt is typically on Hospice at home, for his severe , wearing 3 liters of oxygen and continuing to be ENNIS despite this. Past Medical/Surgical History Medical Problems: (1) Atrial fibrillation Status: Chronic (2) Bradycardia Status: Chronic (3) Cardiac stent placement Status: Resolved (4) Diabetes Status: Chronic (5) Heart disease Status: Chronic (6) Hernia repair Status: Resolved (7) Implantation of cardiac pacemaker Status: Resolved (8) Kidney disease Status: Chronic (9) Meniere's disease Status: Chronic (10) UTI Status: Chronic Family History Cancer Diabetes mellitus FH: heart disease Hypertension Social History Smoking Status: Former Smoker Drug Use: none Marital Status: Housing status: lives with family Occupational Status: retired Immunizations History of Influenza Vaccine: Yes Influenza Vaccine Date: Jan 25, 2011 History of Tetanus Vaccine?: Unknown Tetanus Immunization Date: Jan 16, 2010 History of Pneumococcal: Yes Pneumococcal Date: Apr 04, 2003 History of Hepatitis B Vaccine: Unknown Multi-Drug Resistant Organisms History of MDRO: No Allergies Coded Allergies: Adhesives (Verified Allergy, Unknown, "RED RASH AND ITCHES", 09/19/16) Morphine (Verified Adverse Reaction, Mild, headaches, 09/19/16) Home Medications Scheduled Aspirin (Aspirin 81), 81 MG PO DAILY Atorvastatin (Lipitor), 80 MG PO HS Calcitriol (Rocaltrol Cap), 0.25 MCG PO 3XWK Cephalexin Monohydrate (Keflex), 500 MG PO TID Cholecalciferol (Vitamin D3), 2,000 UNITS PO DAILY Escitalopram Oxalate (Lexapro), 10 MG PO DAILY Finasteride (Proscar), 5 MG PO Q2D Glimepiride (Glimepiride), 1 MG PO DAILY Lactulose (Chronulac), 1 TBS PO DAILY Latanoprost (Xalatan 0.005% Oph Fatuma), 1 DROPS OPB HS Lorazepam (Ativan), 0.5 MG PO BID Metoprolol Succinate (Toprol Xl), 100 MG PO DAILY Multiple Vitamins W/ Minerals (Ocuvite), 1 TAB PO DAILY Timolol Maleate (Ophth) (Timoptic-Xe 0.5% Oph), 1 DROPS OPB QAM Torsemide (Demadex), 40 MG PO BID Ursodiol (Ursodiol), 300 MG PO BID Review of Systems Constitutional: + weakness, + fatigue, No fever, No chills Eyes: No worsening of vision, No eye pain ENT: No sore throat, No trouble swallowing Respiratory: + dyspnea on exertion, No cough, No sputum, No wheezing, No shortness of breath, No dyspnea at rest Cardiovascular: + edema, No chest pain, No orthopnea, No PND Abdomen: No pain, No nausea, No vomiting, No diarrhea Musculoskeletal: + joint pain, + muscle pain, + swelling Genitourinary - Male: No hematuria, No dysuria, No urinary frequency Neurologic: No memory loss, No paralysis Psychiatric: No depression symptoms, No anhedonism Endocrine: No fatigue, No excessive thirst Hematologic / Lymphatic: No abnormal bleeding/bruising, No clotting problems Integumentary: No rash, No itch Physical Exam Vital Signs Date Time Temp Pulse Resp B/P (MAP) Pulse Ox O2 Delivery O2 Flow Rate FiO2 09/19/16 08:00 86 115/56 100 Room Air 09/19/16 06:29 82 20 127/66 98 Room Air 09/19/16 05:36 79 20 122/60 100 Nasal Cannula 3.0 09/19/16 05:27 96 Nasal Cannula 3.0 09/19/16 05:02 77 18 97 Room Air 09/19/16 03:43 36.6 86 18 118/67 96 Room Air General Appearance: WD/WN, + moderate distress Head: normocephalic, atraumatic Eyes: PERRL, EOMI ENT: normal ENT inspection, pharynx normal Neck: supple, no adenopathy, thyroid normal Respiratory/Chest: chest non-tender, lungs clear, normal breath sounds Cardiovascular: regular rate, rhythm, + systolic murmur Abdomen/GI: normal bowel sounds, non tender, soft Back: no CVA tenderness, no muscle spasm Extremities/Musculoskelatal: + pedal edema, + pertinent finding (no obvious redness) Neurologic/Psych: alert, oriented x 3 Skin: normal color, warm/dry, no rash Diagnostics Laboratory Results Results Past 24 Hours Test 09/19/16 04:00 Range/Units White Blood Count 7.34 4.8-10.8 K/uL Red Blood Count 2.70 4.7-6.1 M/uL Hemoglobin 8.5 14.0-18.0 g/dL Hematocrit 25.8 42-52 % Mean Corpuscular Volume 95.6 80-100 fL Mean Corpuscular Hemoglobin 31.5 25-34 pg Mean Corpuscular Hemoglobin Concent 32.9 32-36 g/dl Platelet Count 130 130-400 K/uL Mean Platelet Volume 8.9 7.4-10.4 fL Neutrophils (%) (Auto) 81.4 % Lymphocytes (%) (Auto) 7.9 % Monocytes (%) (Auto) 8.7 % Eosinophils (%) (Auto) 1.4 % Basophils (%) (Auto) 0.3 % Neutrophils # (Auto) 5.98 1.4-6.5 K/uL Lymphocytes # (Auto) 0.58 1.2-3.4 K/uL Monocytes # (Auto) 0.64 0.11-0.59 K/uL Eosinophils # (Auto) 0.10 0-0.5 K/uL Basophils # (Auto) 0.02 0-0.2 K/uL RDW Standard Deviation 47.1 36.4-46.3 fL RDW Coefficient of Variation 13.4 11.5-14.5 % Immature Granulocyte % (Auto) 0.3 % Immature Granulocyte # (Auto) 0.02 0.00-0.02 K/uL Sodium Level 140 136-145 mmol/L Potassium Level 3.4 3.5-5.1 mmol/L Chloride Level 97 98-107 mmol/L Carbon Dioxide Level 35 21-32 mmol/L Anion Gap 8.0 3-11 mmol/L Blood Urea Nitrogen 67 7-18 mg/dl Creatinine 2.30 0.60-1.40 mg/dl Est Creatinine Clear Calc Drug Dose 19.6 ml/min Estimated GFR () 28.1 Estimated GFR (Non- 24.3 BUN/Creatinine Ratio 29.2 10-20 Random Glucose 142 70-99 mg/dl Calcium Level 9.2 8.5-10.1 mg/dl Diagnostic Radiology CT L spine, cortical step off within the superior endplate of the L1 vertebral body. This is consistent with a nondisplaced compression fracture. 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 Y/N: Yes Risk Level: Moderate Given or contraindicated: Enoxaparin (Lovenox)SQ
[2016-09-19 08:49] VITALS: O2SAT 100; Ht 167.6 cm; Wt 74.1 kg
[2016-09-19 09:34] VITALS: BP 119/63; PULSE 89; TEMP 36.9; O2SAT 94
[2016-09-19] MEDS: LIDODERM (LIDOCAINE) PATCH 5% TD SCH (10:57)
[2016-09-19] MEDS: ENOXAPARIN 30 MG/0.3 ML SYR SQ SCH (10:58)
[2016-09-19] MEDS: CEPHALEXIN MONOHYDRATE 250 MG CAP PO SCH ×2 (13:52→22:32)
[2016-09-19] MEDS: LACTULOSE SYRUP 10 GM/15 ML BTL 473 ML PO PRN (14:17)
[2016-09-19 15:37] VITALS: BP 112/61; PULSE 89; TEMP 37.1; O2SAT 90
[2016-09-19 16:00] VITALS: O2SAT 94
[2016-09-19] MEDS: TORSEMIDE 20 MG TAB PO SCH (16:51)
[2016-09-19] MEDS: HYDROmorphone INJ 0.5 MG/0.5 ML SYR IV PRN (18:58)
[2016-09-19] MEDS: LORAZEPAM 0.5 MG TAB PO SCH (22:31)
[2016-09-19] MEDS: URSODIOL 300 MG CAP PO SCH (22:32)
[2016-09-19] MEDS: ACETAMINOPHEN 500 MG TAB PO SCH (22:33)
[2016-09-19] MEDS: LATANOPROST 0.005% OP SOLN 2.5 ML BTL OPB SCH (23:04)
[2016-09-20 00:16] VITALS: BP 115/68; PULSE 100; TEMP 37.1; O2SAT 98
[2016-09-20 01:28] LABS: URINE APPEARANCE CLEAR (CLEAR); URINE BILIRUBIN NEG (NEG); URINE COLOR YELLOW; URINE EPITHELIAL CELL AUTO 0-5 /lpf (0-5); URINE NITRITE NEG (NEG); URINE PH 6.5 (4.5-7.5); URINE SPECIFIC GRAVITY 1.012 (1.000-1.030); UROBILINOGEN NEG (NEG)
[2016-09-20 01:33] LABS: MANUAL MICROSCOPIC REQUIRED? NO; REVIEW REQ? NO
[2016-09-20] MEDS: HYDROmorphone INJ 0.5 MG/0.5 ML SYR IV PRN ×2 (03:32→08:29)
[2016-09-20 07:12] VITALS: BP 117/68; PULSE 80; TEMP 36.8; O2SAT 97
[2016-09-20 08:00] VITALS: O2SAT 97
[2016-09-20] MEDS: LORAZEPAM 0.5 MG TAB PO SCH ×2 (08:13→20:45)
[2016-09-20] MEDS: TORSEMIDE 20 MG TAB PO SCH ×2 (08:14→17:15)
[2016-09-20] MEDS: CEROVITE ADV FORMULA TAB PO SCH (08:14)
[2016-09-20] MEDS: METOPROLOL SUCC 50MG EXT REL TAB PO SCH (08:15)
[2016-09-20] MEDS: ASPIRIN 81 MG ECTAB PO SCH (08:15)
[2016-09-20] MEDS: ESCITALOPRAM OXALATE 20 MG TAB PO SCH (08:15)
[2016-09-20] MEDS: GLIMEPIRIDE 2 MG TAB PO SCH (08:16)
[2016-09-20] MEDS: CEPHALEXIN MONOHYDRATE 250 MG CAP PO SCH ×3 (08:18→20:45)
[2016-09-20] MEDS: ACETAMINOPHEN 500 MG TAB PO SCH ×2 (08:19→20:46)
[2016-09-20] MEDS: URSODIOL 300 MG CAP PO SCH ×2 (08:20→20:45)
[2016-09-20] MEDS: LIDODERM (LIDOCAINE) PATCH 5% TD SCH (08:20)
[2016-09-20] MEDS: TIMOLOL GFS 0.5% OPH SOLN 74 DROPS/5 ML BTL OPB SCH (08:20)
[2016-09-20] MEDS ORDERED: CALCITRIOL 0.25 MCG CAP PO SCH (09:00)
[2016-09-20] MEDS ORDERED: FINASTERIDE 5 MG TAB PO SCH (09:00)
[2016-09-20] MEDS: ENOXAPARIN 30 MG/0.3 ML SYR SQ SCH (12:38)
--- NOTE | 2016-09-20 14:38 | Progress Note ---
Subjective Date of Service: Sep 20, 2016. Subjective Pt evaluation today including: conversation w/ patient, conversation w/ family , physical exam, chart review, lab review, review of studies, review of inpatient medication list The pain was not well controlled in the morning, however report doing okay when I seeing him Pleasant conversational Problem List Medical Problems: (1) Bleeding gums Status: Acute (2) Cellulitis of left foot Status: Acute (3) Cellulitis of right foot Status: Acute (4) Exertional chest pain Status: Acute (5) Fall Status: Acute (6) Food impaction of esophagus Status: Acute (7) Head injury, closed Status: Acute (8) Hospice care Status: Acute (9) Hypokalemia Status: Acute (10) Intractable back pain Status: Acute (11) Lumbar vertebral fracture Status: Acute (12) Palpitations Status: Acute (13) Pulmonary edema Status: Acute (14) SOB (shortness of breath) Status: Acute Review of Systems Constitutional: + weakness, + fatigue Eyes: No worsening of vision, No eye pain, No redness, No discharge, No diplopia ENT: No hearing loss, No unusual epistaxis, No nasal symptoms, No sore throat, No tinnitus, No dental problems, No trouble swallowing Respiratory: + shortness of breath (is not new) Cardiac: + edema Abdomen: No pain, No nausea, No vomiting, No diarrhea, No constipation Musculoskeletal: No joint pain, No muscle pain, No swelling, No calf pain Male : No dysuria, No urinary frequency, No incontinence, No nocturia more than once/night, No slowing stream, No hematuria Neurologic: No memory loss, No paralysis, No weakness, No numbness/tingling, No vertigo, No balance problems Psychiatric: No depression symptoms, No anhedonism, No anxiety, No insomnia, No substance abuse Heme: No abnormal bleeding/bruising, No clotting problems, No swollen lymph nodes, No night sweats Endo: No fatigue, No excessive thirst, No excessive urination Skin: No rash, No itch, No new/changing skin lesions, No color change, No bleeding Objective Vital Signs Date Time Temp Pulse Resp B/P (MAP) Pulse Ox O2 Delivery O2 Flow Rate FiO2 09/20/16 08:00 97 Nasal Cannula 2.0 09/20/16 07:12 36.8 80 18 117/68 (84) 97 Nasal Cannula 2.0 09/20/16 00:16 37.1 100 16 115/68 (84) 98 Nasal Cannula 2.0 09/20/16 00:10 Nasal Cannula 2.0 09/19/16 16:00 94 Nasal Cannula 2.0 09/19/16 15:37 37.1 89 18 112/61 (78) 90 Room Air Physical Exam General Appearance: WD/WN, no apparent distress, + pertinent finding (frail, conversational) Eyes: normal inspection, PERRL, EOMI, sclerae normal ENT: normal ENT inspection, hearing grossly normal, pharynx normal Neck: supple, no adenopathy, thyroid normal, no JVD, no carotid bruits, trachea midline Respiratory/Chest: chest non-tender, normal breath sounds, no respiratory distress, no accessory muscle use, + decreased breath sounds Cardiovascular: regular rate, rhythm, no gallop, no JVD, no murmur, + pertinent finding (1+ edema) Abdomen: normal bowel sounds, non tender, soft, no organomegaly, no pulsatile mass Extremities: normal range of motion, non-tender, normal inspection, no pedal edema, no calf tenderness, normal capillary refill, pelvis stable, + pertinent finding (lower back pain in palpation) 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, no motor/sensory deficits, alert, normal mood/affect, oriented x 3 Skin: normal color, warm/dry, no rash Lymphatic: no adenopathy Laboratory Results Last 24 Hours Test 09/19/16 16:09 09/19/16 20:06 09/20/16 00:15 09/20/16 07:31 Bedside Glucose 144 mg/dl 138 mg/dl 141 mg/dl Urine Color YELLOW Urine Appearance CLEAR Urine pH 6.5 Urine Specific [place] 1.012 Urine Protein NEG Urine Glucose (UA) NEG Urine Ketones NEG Urine Occult Blood TRACE Urine Nitrite NEG Urine Bilirubin NEG Urine Urobilinogen NEG Urine Leukocyte Esterase NEG Urine WBC (Auto) 0 /hpf Urine RBC (Auto) 0-4 /hpf Urine Hyaline Casts (Auto) 0 /lpf Urine Epithelial Cells (Auto) 0-5 /lpf Urine Bacteria (Auto) NEG Test 09/20/16 11:20 Bedside Glucose 156 mg/dl Assessment and Plan 89 F admitted on 05/22/2016 with fall, intractable back pain and non depressed L1 fracture, on outpt hospice for chronic valvular related diastolic heart failure Intractable back pain and L1 fracture, Has been on lidoderm, scheduled tylenol, prn oxycodone and hydormorphone, Start fentanyl patch for baseline pain control, patient and continue as needed pain medicine for breakthrough pain Hospice care for valvular heart disease, chronic diastolic heart disease, continue lasix and metoprolol, augment oxygen, will need blood testing if not necessary LE cellulitis, improved and continue Keflex Diabetes, use oral meds, hold on ssi, unless bsg's are elevated CKD, 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
[2016-09-20] MEDS ORDERED: FENTANYL PATCH REMOVE & WASTE SCH (15:14)
[2016-09-20] MEDS ORDERED: FENTANYL 12 MCG/HR TDSY TD SCH (15:15)
[2016-09-20 15:47] VITALS: BP 128/76; PULSE 82; TEMP 36.9; O2SAT 95
[2016-09-20 16:00] VITALS: O2SAT 95
[2016-09-20] MEDS: CHECK FENTANYL PATCH PLACEMENT SCH (16:00)
[2016-09-20] MEDS: LATANOPROST 0.005% OP SOLN 2.5 ML BTL OPB SCH (20:45)
[2016-09-20] MEDS: LACTULOSE SYRUP 10 GM/15 ML BTL 473 ML PO PRN (20:47)
[2016-09-20 23:05] VITALS: BP 109/60; PULSE 85; TEMP 37; O2SAT 95
[2016-09-21] MEDS: CHECK FENTANYL PATCH PLACEMENT SCH ×2 (00:04→08:00)
[2016-09-21 05:40] LABS: HEMATOCRIT 23.8 % (42-52); MEAN CELL VOLUME 94.8 fL (80-100); MEAN CORPUSCULAR HEMOGLOBIN 31.9 pg (25-34); MEAN CORPUSCULAR HGB CONC 33.6 g/dl (32-36); RED BLOOD COUNT 2.51 M/uL (4.7-6.1); WHITE BLOOD COUNT 6.85 K/uL (4.8-10.8)
[2016-09-21 06:08] LABS: BUN/CREATININE RATIO 27.9 (10-20); CALCIUM 9.3 mg/dl (8.5-10.1); CREATININE 2.1 mg/dl (0.60-1.40); MAGNESIUM 2.2 mg/dl (1.8-2.4); POTASSIUM 3.3 mmol/L (3.5-5.1)
[2016-09-21 06:13] LABS: BASO % 0.6 %; BASO ABS # 0.04 K/uL (0-0.2); COMPLETE YES; EOS % 2.5 %; IG% 0.1 %; LYMPH % 8.9 %; LYMPH ABS # 0.61 K/uL (1.2-3.4); MEAN PLATELET VOLUME 8.7 fL (7.4-10.4); MONO % 8.9 %; OVALOCYTES 1+; PLATELET COUNT 99 K/uL (130-400); PLT ESTIMATE DECREASED
[2016-09-21 07:59] VITALS: BP 115/66; PULSE 93; TEMP 36.8; O2SAT 97
[2016-09-21] MEDS: LORAZEPAM 0.5 MG TAB PO SCH (08:44)
[2016-09-21] MEDS: URSODIOL 300 MG CAP PO SCH (08:44)
[2016-09-21] MEDS: ACETAMINOPHEN 500 MG TAB PO SCH (08:45)
[2016-09-21] MEDS: CEROVITE ADV FORMULA TAB PO SCH (08:46)
[2016-09-21] MEDS: TIMOLOL GFS 0.5% OPH SOLN 74 DROPS/5 ML BTL OPB SCH (08:46)
[2016-09-21] MEDS: CEPHALEXIN MONOHYDRATE 250 MG CAP PO SCH (08:46)
[2016-09-21] MEDS: TORSEMIDE 20 MG TAB PO SCH (08:46)
[2016-09-21] MEDS: LIDODERM (LIDOCAINE) PATCH 5% TD SCH (08:47)
[2016-09-21] MEDS: ESCITALOPRAM OXALATE 20 MG TAB PO SCH (08:48)
[2016-09-21] MEDS: ASPIRIN 81 MG ECTAB PO SCH (08:48)
[2016-09-21] MEDS: GLIMEPIRIDE 2 MG TAB PO SCH (08:48)
[2016-09-21] MEDS: METOPROLOL SUCC 50MG EXT REL TAB PO SCH (08:49)
[2016-09-21] MEDS ORDERED: DRGTP12 TD (09:07)
--- NOTE | 2016-09-21 11:17 | Discharge Instructions ---
Discharge Instructions Date of Service Sep 21, 2016. Admission Reason for Admission: Intractable Back Pain Discharge Discharge Diagnosis / Problem: intractable back pain and non depressed L1 fracture, Discharge Goals Goal(s): Decrease discomfort Activity Recommendations Activity Limitations: as noted below (activity as tolerated , fall preaution) . Instructions / Follow-Up Instructions / Follow-Up you had a fall with intractable back pain and non depressed L1 fracture, o I started fentanyl patch for baseline pain control you can continue oral morphine as needed for breakthrough pain continue home Hospice care you have lower extremity cellulitis, you can continue Keflex call pcp if have any questions Current Hospital Diet Patient's current hospital diet: Diabetes Type 2 Diet Discharge Diet Recommended Diet: Regular Diet Pending Studies Studies pending at discharge: no Medical Emergencies . Who to Call and When: Medical Emergencies: If at any time you feel your situation is an emergency, please call 911 immediately. . Non-Emergent Contact Non-Emergency issues call your: Primary Care Provider . . "Provider Documentation" section prepared by Silvestre Driscoll. . VTE Core Measure Inpt VTE Proph given/why not?: Enoxaparin (Lovenox)SQ
--- NOTE | 2016-09-21 11:18 | Discharge Summary ---
Discharge Summary Date of Service Sep 21, 2016. Discharge Summary Admission Date: Sep 19, 2016 at 08:19 Discharge Date: Sep 21, 2016 Discharge Disposition: Home Principal Diagnosis: intractable back pain and non depressed L1 fracture Problems/Secondary Diagnoses: intractable back pain Immunizations: Have You Had Influenza Vaccine: Yes Influenza Vaccine Date: Jan 25, 2011 History of Tetanus Vaccine?: Unknown Tetanus Immunization Date: Jan 16, 2010 History of Pneumococcal: Yes Pneumococcal Date: Apr 04, 2003 History of Hepatitis B Vaccine: Unknown Consultations: no Medication Reconciliation New Medications: Fentanyl (Fentanyl) 12 Mcg Tdsy 12 MCG TD Q3D@0900 for 9 Days Continued Medications: Aspirin (Aspirin 81) 81 Mg Tab 81 MG PO DAILY Atorvastatin (Lipitor) 80 Mg Tab 80 MG PO HS, 0 Refills Calcitriol (Rocaltrol Cap) 0.25 Mcg Cap 0.25 MCG PO 3XWK, CAP TAKE THIS MED EVERY TUESDAY/TUESDAY/TUESDAY Cephalexin Monohydrate (Keflex) 500 Mg Cap 500 MG PO TID, #21 CAP Cholecalciferol (Vitamin D3) 2,000 Unit Cap 2000 UNITS PO DAILY for 30 Days, CAP 3 Refills Escitalopram Oxalate (Lexapro) 20 Mg Tab 10 MG PO DAILY, TAB Finasteride (Proscar) 5 Mg Tab 5 MG PO Q2D, TAB TAKE THIS MED EVERY TUESDAY/TUESDAY/TUESDAY Glimepiride (Glimepiride) 2 Mg Tab 1 MG PO DAILY, 5 Refills 1/2 TABLET DOSE Lactulose (Chronulac) 10 Gm/15 Ml Syrp 1 TBS PO DAILY Latanoprost (Xalatan 0.005% Oph Fatuma) 0.005 % Fatuma 1 DROPS OPB HS, 3 Refills Lorazepam (Ativan) 0.5 Mg Tab 0.5 MG PO BID, TAB Metoprolol Succinate (Toprol Xl) 200 Mg Tab 100 MG PO DAILY, TAB Multiple Vitamins W/ Minerals (Ocuvite) 1 Tab Tab 1 TAB PO DAILY Timolol Maleate (Ophth) (Timoptic-Xe 0.5% Oph) 0.5 % Fatuma 1 DROPS OPB QAM, #15 ML 3 Refills Torsemide (Demadex) 20 Mg Tab 40 MG PO BID, TAB Ursodiol (Ursodiol) 300 Mg Cap 300 MG PO BID Discharge Exam Sitting up in bed, pain better controlled, feeling possible more difficult breathing, No other complaint Review of Systems: Constitutional: + weakness, + fatigue, No fever, No chills, No sweats, No weight loss, No problem reported Eyes: No worsening of vision, No eye pain, No redness, No discharge, No diplopia, No problem reported ENT: No hearing loss, No unusual epistaxis, No nasal symptoms, No sore throat, No tinnitus, No dental problems, No trouble swallowing, No problem reported Respiratory: + shortness of breath (possible a little bit worse) Cardiovascular: + edema, No chest pain, No orthopnea, No PND, No claudication, No palpitations, No problem reported Abdomen: No pain, No nausea, No vomiting, No diarrhea, No constipation, No GI bleeding, No problem reported Genitourinary - Male: No hematuria, No dysuria, No urinary frequency, No urinary urgency, No urinary hesitancy, No urinary retention, No urinary incontinence, No penile discharge, No lesions, No impotence, No problem reported Neurologic: No memory loss, No paralysis, No weakness, No numbness/tingling , No vertigo, No balance problems, No problem reported Psychiatric: No depression symptoms, No anhedonism, No anxiety, No insomnia , No substance abuse, No problem reported Endocrine: No fatigue, No excessive thirst, No excessive urination, No problem reported Hematologic / Lymphatic: No abnormal bleeding/bruising, No clotting problems , No swollen lymph nodes, No night sweats, No problem reported Integumentary: No rash, No itch, No new/changing skin lesions, No color change, No bleeding, No problem reported Physical Exam: General Appearance: WD/WN, + pertinent finding (chronic ill-looking) Eyes: normal inspection, PERRL, EOMI ENT: normal ENT inspection, hearing grossly normal Neck: supple, no adenopathy Respiratory/Chest: chest non-tender, + decreased breath sounds Cardiovascular: regular rate, rhythm, + pertinent finding (2+ pitting edema) Abdomen / GI: normal bowel sounds, non tender Extremities: normal inspection, no calf tenderness 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, no motor/sensory deficits , alert, normal mood/affect, normal reflexes Skin: normal color, warm/dry Hospital Course 89 F admitted on 05/22/2016 with fall, intractable back pain and non depressed L1 fracture, on outpt hospice for chronic valvular related diastolic heart failure Intractable back pain and L1 fracture, stable improved Has been on lidoderm, scheduled tylenol, prn oxycodone and hydormorphone, Started fentanyl patch for baseline pain control, continue as needed pain medicine for breakthrough pain, has oral morphine at home, will continue Hospice care for valvular heart disease, chronic diastolic heart disease, continue lasix and metoprolol, augment oxygen, will need blood testing if not necessary LE cellulitis, improved and continue Keflex, patient has niece medicine at home Diabetes, use oral meds, Recommend regular diet to enjoy aced of food because patient is on hospice care and the goal of care is comfort methods CKD, 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 and requires dosing adjustment Lovenox for dvt prevention renal dosed Discussed with patient and family about a care plan, answered all the questions , Will discharge home continue home hospice care Instructions / Follow-Up you had a fall with intractable back pain and non depressed L1 fracture, o I started fentanyl patch for baseline pain control you can continue oral morphine as needed for breakthrough pain continue home Hospice care you have lower extremity cellulitis, you can continue Keflex call pcp if have any questions Total Time Spent: Less than 30 minutes This includes examination of the patient, discharge planning, medication reconciliation, and communication with other providers. Discharge Instructions Please refer to the electronic Patient Visit Report (Discharge Instructions) for additional information. Additional Copies To Carlos Nunez M.D.
[2016-09-21 13:23] VITALS: BP 115/66; PULSE 93; TEMP 36.8; O2SAT 97
== END 2016-09-21 14:25 | disposition home health service (06) ==
LOC: C.EDB 03:41 → C.MS2W 08:19 → EDBEDREQ 08:43 → ENRESERV 08:58
PROVIDERS: ADMIT Internal Medicine; ATTEND Hospitalist
DX: S32.018A Other fracture of first lumbar vertebra, initial encounter for closed fracture (principal); W01.10XA Fall on same level from slipping, tripping and stumbling with subsequent striking against unspecified object, initial encounter; I48.91 Unspecified atrial fibrillation; I50.9 Heart failure, unspecified; N18.4 Chronic kidney disease, stage 4 (severe); E11.22 Type 2 diabetes mellitus with diabetic chronic kidney disease; D64.9 Anemia, unspecified; Z95.0 Presence of cardiac pacemaker; Z95.5 Presence of coronary angioplasty implant and graft; Z87.891 Personal history of nicotine dependence; S09.90XA Unspecified injury of head, initial encounter; Z79.82 Long term (current) use of aspirin; Z79.899 Other long term (current) drug therapy; E87.6 Hypokalemia; L03.115 Cellulitis of right lower limb; L03.116 Cellulitis of left lower limb; I26.99 Other pulmonary embolism without acute cor pulmonale